=== PATIENT | female | born 1990 | race Two or more races ===

== ENCOUNTER → 2017-02-04 | Outpatient (REF) | payer OTHER | LOC: M LAB REF 14:00 | PROVIDERS: ATTEND Physician Assistant Medical | DX: R39.9 Unspecified symptoms and signs involving the genitourinary system (principal) ==

== ENCOUNTER → 2017-08-02 | Outpatient (CLI) | payer OTHER ==
[~2017-08-02] MED LIST: METHACHOLINE KIT (J7674) INH
== END ==
LOC: M CARPUL 12:42
DX: R06.9 Unspecified abnormalities of breathing (principal)

== ENCOUNTER → 2018-08-15 | Outpatient (REF) | payer OTHER ==
[2018-08-15 18:40] LABS: BASO # 0.1 10^3/uL (0.0-0.2); BASO % 0.4 % (0.0-1.0); EOS # 0.1 10^3/uL (0.0-0.50); EOS % 0.6 % (0.0-3.0); HEMATOCRIT 38.3 % (36.0-47.0); HEMOGLOBIN 12.7 g/dl (12.0-15.5); LYMPH # 3.3 10^3/uL (1.5-6.5); LYMPH % 24.4 % (24.0-44.0); MEAN CORPUSCULAR HEMOGLOBIN 29.7 pg (27.0-33.0); MEAN CORPUSCULAR HGB CONC 33.2 g/dl (32.0-36.5); MEAN CORPUSCULAR VOLUME 89.7 fl (80.0-96.0); MONO # 1.2 10^3/uL (0.0-0.8); MONO % 8.6 % (0.0-5.0); NEUTROPHILS % 65.5 % (36.0-66.0); PLATELET COUNT, AUTOMATED 248 10^3/uL (150-450); RED BLOOD COUNT 4.27 10^6/uL (4.00-5.40); WHITE BLOOD COUNT 13.7 10^3/uL (4.0-10.0)
[2018-08-15 21:18] LABS: CHLAMYDIA DNA AMPLIFICATION NEGATIVE (NEGATIVE); GC DNA AMPLIFICATION NEGATIVE (NEGATIVE)
[2018-08-17 10:58] LABS: HEPATITIS C VIRUS ABY INDEX 0.1 INDEX (<0.8); HIV 1&2 SCREEN CENTAUR NEGATIVE (NEGATIVE); RUBELLA IgG QUALITATIVE IMMUNE (IMMUNE)
== END ==
LOC: M LABSMT 16:55
PROVIDERS: ATTEND Obstetrics & Gynecology
DX: Z3A.08 8 weeks gestation of pregnancy (principal); Z34.81 Encounter for supervision of other normal pregnancy, first trimester

== ENCOUNTER 2018-08-27 13:16 | Emergency (ER) | payer OTHER, MEDICAID ==
[~2018-08-27] VITALS: Ht 165.1 cm; Wt 104.5 kg
[2018-08-27] MEDS ORDERED: PREN1TAB11 PO (13:25)
[2018-08-27] MEDS ORDERED: ONDANSETRON 4MG/2ML VIAL (J2405) IV ONE (13:45)
[2018-08-27 14:23] LABS: INFLUENZA A AMPLIFICATION NEGATIVE (NEGATIVE); INFLUENZA B AMPLIFICATION NEGATIVE (NEGATIVE)
[2018-08-27 14:24] LABS: BASO % 0.3 % (0.0-1.0); EOS # 0.1 10^3/uL (0.0-0.50); EOS % 0.5 % (0.0-3.0); HEMATOCRIT 37.8 % (36.0-47.0); HEMOGLOBIN 12.7 g/dl (12.0-15.5); LYMPH # 2.5 10^3/uL (1.5-6.5); LYMPH % 21.1 % (24.0-44.0); MEAN CORPUSCULAR HEMOGLOBIN 29.6 pg (27.0-33.0); MEAN CORPUSCULAR HGB CONC 33.6 g/dl (32.0-36.5); MEAN CORPUSCULAR VOLUME 88.1 fl (80.0-96.0); MONO # 1.1 10^3/uL (0.0-0.8); MONO % 9.1 % (0.0-5.0); NEUTROPHILS # 8.1 10^3/uL (1.8-7.7); NEUTROPHILS % 68.7 % (36.0-66.0); PLATELET COUNT, AUTOMATED 273 10^3/uL (150-450); RED BLOOD COUNT 4.29 10^6/uL (4.00-5.40); WHITE BLOOD COUNT 11.8 10^3/uL (4.0-10.0)
[2018-08-27 14:30] LABS: ALBUMIN 3.4 GM/DL (3.2-5.2); ALT/SGPT 31 U/L (12-78); BILIRUBIN,DIRECT 0.1 MG/DL (0.0-0.2); BILIRUBIN,TOTAL 0.2 MG/DL (0.2-1.0); BLOOD UREA NITROGEN 6 MG/DL (7-18); CARBON DIOXIDE LEVEL 23 MEQ/L (21-32); CHLORIDE LEVEL 105 MEQ/L (98-107); CREATININE FOR GFR 0.63 MG/DL (0.55-1.30); GLOMERULAR FILTRATION RATE > 60.0 (>60); GLUCOSE, FASTING 76 MG/DL (70-100); POTASSIUM SERUM 3.8 MEQ/L (3.5-5.1); SODIUM LEVEL 137 MEQ/L (136-145); TOTAL PROTEIN 6.9 GM/DL (6.4-8.2)
[2018-08-27] MEDS ORDERED: NS 1,000 ML IV ONE (15:00)
[2018-08-27] MEDS ORDERED: ONDA4TAB6 PO (15:30)
[2018-08-27 16:14] VITALS: BP 122/75
== END 2018-08-27 16:15 | disposition home or self-care (01) ==
LOC: M ED 13:16
DX: O99.89 Other specified diseases and conditions complicating pregnancy, childbirth and the puerperium (principal); R11.10 Vomiting, unspecified; R19.7 Diarrhea, unspecified; Z3A.13 13 weeks gestation of pregnancy; Z88.1 Allergy status to other antibiotic agents
CPT/HCPCS: 36415; 80048; 80076; 85025; 87086; 87502; 96374; 99284; J2405

== ENCOUNTER → 2018-08-31 | Outpatient (CLI) | payer OTHER, MEDICAID ==
[~2018-08-31] MED LIST changes: -METHACHOLINE KIT (J7674) INH; +ONDA4TAB6 PO; +PREN1TAB11 PO
== END ==
LOC: M SMT 14:08
PROVIDERS: ATTEND Advanced Practice Midwife
DX: Z31.438 Encounter for other genetic testing of female for procreative management (principal)

== ENCOUNTER → 2018-10-11 | Outpatient (CLI) | payer OTHER, MEDICAID ==
--- NOTE | 2018-10-12 05:15 | REP ---
Clinical: Anatomical evaluation. Comparison: None . Findings: Examination demonstrates a single live intrauterine in cephalic presentation. motion is identified by technologist. Placenta is noted anterior and grade grade zero without evidence for placenta previa or abruption. Amniotic fluid volume is normal. Cervix measures 4.2 cm in length and appears closed. No evidence for nuchal cord. Gestational age by LMP 19 weeks 1 day with JOHN 02/26/2019 . Gestational age by current measurements 19 weeks 5 days with JOHN 03/02/2019 . FHR equals 144 beats per minute. BPD 4.5 cm 19 weeks 4 days HC 17.0 cm 19 weeks 4 days AC 14.7 cm 20 weeks 0 days FL 3.3 cm 20 weeks 2 days HL 3.2 cm 20 weeks 6 days HC/AC ratio 1.15 Estimated weight 332 grams ( 61st percentile). Anatomical assessment demonstrates normal structures including cranium, choroid plexus, cavum, cerebellum/posterior fossa, lungs, stomach, cord insertion/three-vessel cord, kidneys/bladder, spine, and extremities. Limited evaluation of the facial features, heart/ventricular outflow tracts and diaphragm. Impression: 1. Single live intrauterine in cephalic presentation demonstrating appropriate interval growth. 2. Anatomical limitations as described above may warrant reevaluation and follow-up. Electronically Signed by Jethro Dacosta MD 10/12/2018 05:07 A
== END ==
LOC: M LRY 08:08
PROVIDERS: ATTEND Obstetrics & Gynecology
DX: Z34.82 Encounter for supervision of other normal pregnancy, second trimester (principal); Z3A.19 19 weeks gestation of pregnancy

== ENCOUNTER → 2018-11-07 | Outpatient (CLI) | payer OTHER, MEDICAID ==
--- NOTE | 2018-11-07 09:13 | REP ---
Clinical: Anatomical evaluation. Comparison: 10/11/2018 . Findings: Examination demonstrates a single live intrauterine in transverse (head to maternal right) presentation. motion is identified by technologist. Placenta is noted anterior and grade 0 without evidence for placenta previa or abruption. Amniotic fluid volume is normal. Cervix measures 6.0 cm in length and appears closed. Nuchal cord cannot be excluded. Gestational age by LMP 23 weeks 0 days with JOHN 03/06/2019 . Gestational age by current measurements 23 weeks 2 days with JOHN 03/04/2019 . FHR equals 145 beats per minute. Estimated weight 593 grams ( 58th percentile). Anatomical assessment demonstrates normal structures including cranium, choroid plexus, cavum, cerebellum/posterior fossa, facial features, lungs, four-chamber heart/ventricular outflow tracts, diaphragm, stomach, cord insertion/three-vessel cord, kidneys/bladder, spine, and extremities. Impression: 1. Single live intrauterine in transverse lie demonstrating appropriate interval growth. 2. Nuchal cord cannot be excluded. 3. Anatomical assessment is complete and normal. No gross abnormalities are identified. Electronically Signed by Jethro Dacosta MD 11/07/2018 09:05 A
== END ==
LOC: M RAD 07:28
PROVIDERS: ATTEND Advanced Practice Midwife
DX: Z34.82 Encounter for supervision of other normal pregnancy, second trimester (principal); Z3A.22 22 weeks gestation of pregnancy

== ENCOUNTER → 2018-12-20 | Outpatient (CLI) | payer OTHER, MEDICAID ==
[2018-12-20 09:56] LABS: HEMATOCRIT 37.7 % (36.0-47.0); HEMOGLOBIN 12.6 g/dl (12.0-15.5); MEAN CORPUSCULAR HGB CONC 33.4 g/dl (32.0-36.5); MEAN CORPUSCULAR VOLUME 92.6 fl (80.0-96.0); PLATELET COUNT, AUTOMATED 257 10^3/uL (150-450); RED BLOOD COUNT 4.07 10^6/uL (4.00-5.40); WHITE BLOOD COUNT 12.6 10^3/uL (4.0-10.0)
== END ==
LOC: M SMT 08:03
PROVIDERS: ATTEND Advanced Practice Midwife
DX: Z34.02 Encounter for supervision of normal first pregnancy, second trimester (principal); Z3A.00 Weeks of gestation of pregnancy not specified

== ENCOUNTER → 2018-12-26 | Outpatient (CLI) | payer OTHER, MEDICAID ==
--- NOTE | 2018-12-27 20:28 | SLEEPHOME ---
DATE OF PROCEDURE: 12/26/2018 ORDERED BY: SAVANAH Chow Diagnostic home sleep testing was performed due to concern for the obstructive sleep apnea syndrome in this patient with a history of excessive somnolence and nonrestorative sleep. For testing, a nocturnal T3 respiratory monitoring device was used. Continuous record was made of pulse, oxygen saturation, airflow, chest, abdominal strain and body position. 9 hours and 59 minutes of data were reviewed. There were 7 hours and 22 minutes marked as time in bed. During the interval marked time in bed there were 40 respiratory events identified of 10 seconds in duration or greater for a respiratory event index of 5.4. The events were primarily associated with the supine posture. The events were primarily obstructive. Baseline pulse rate was 97 beats per minute, pulse rate ranged 80-126. Baseline saturation 95%. Saturations fell as low as 84%. Testing was performed in both the supine and nonsupine positions. IMPRESSION Abnormal home sleep testing with repetitive respiratory events and oxygen desaturations to 84% with a respiratory event index of 5.4 is consistent with obstructive sleep apnea syndrome. RECOMMENDATIONS As the events were primarily associated with the supine posture, sleep position retraining for avoidance of the supine posture would be reasonable. Should symptoms persist, formal sleep evaluation should be considered.
== END ==
LOC: M SLEEP HO 11:22
PROVIDERS: ATTEND Nurse Practitioner Family
DX: R40.0 Somnolence (principal)

== ENCOUNTER → 2019-02-05 | Outpatient (REF) | payer OTHER, MEDICAID | LOC: M LAB REF 13:21 | PROVIDERS: ATTEND Obstetrics & Gynecology | DX: O09.813 Supervision of pregnancy resulting from assisted reproductive technology, third trimester (principal) ==

== ENCOUNTER → 2019-02-19 | Outpatient (CLI) | payer OTHER, MEDICAID ==
[~2019-02-19] MED LIST changes: +RANI1TAB38 PO; +TUMS750C5 PO
== END ==
LOC: M SMT 15:31
PROVIDERS: ATTEND Advanced Practice Midwife
DX: O09.813 Supervision of pregnancy resulting from assisted reproductive technology, third trimester (principal); Z3A.00 Weeks of gestation of pregnancy not specified

== ENCOUNTER → 2019-02-26 | Outpatient (CLI) | payer OTHER, MEDICAID ==
[2019-02-26 17:48] LABS: HEMATOCRIT 34.6 % (36.0-47.0); HEMOGLOBIN 11.7 g/dl (12.0-15.5); MEAN CORPUSCULAR HEMOGLOBIN 30.2 pg (27.0-33.0); MEAN CORPUSCULAR HGB CONC 33.8 g/dl (32.0-36.5); MEAN CORPUSCULAR VOLUME 89.4 fl (80.0-96.0); PLATELET COUNT, AUTOMATED 206 10^3/uL (150-450); RED BLOOD COUNT 3.87 10^6/uL (4.00-5.40); WHITE BLOOD COUNT 10.9 10^3/uL (4.0-10.0)
[2019-02-26 18:09] LABS: TOTAL PROTEIN,RANDOM URINE 21.4 MG/DL (0.0-12.0)
[2019-02-26 18:12] LABS: ALT/SGPT 16 U/L (12-78); BILIRUBIN,TOTAL 0.3 MG/DL (0.2-1.0); CREATININE FOR GFR 0.68 MG/DL (0.55-1.30); GLOMERULAR FILTRATION RATE > 60.0 (>60); LDH LACTATE DEHYDROGENASE 168 U/L (84-246); URIC ACID 5.8 MG/DL (2.6-6.0)
== END ==
LOC: M LAB 16:54
PROVIDERS: ATTEND Advanced Practice Midwife
DX: O16.3 Unspecified maternal hypertension, third trimester (principal); Z3A.00 Weeks of gestation of pregnancy not specified

== ENCOUNTER 2019-02-27 10:42 | Inpatient (IN) | payer OTHER, MEDICAID ==
[~2019-02-27] VITALS: Ht 165.1 cm; Wt 109.4 kg
[2019-02-27] VITALS (12 sets, daily range): BP systolic 108–139; BP diastolic 62–89
[~2019-02-27 10:42] MED LIST changes: -RANI1TAB38 PO; -TUMS750C5 PO
[2019-02-27] MEDS ORDERED: TUMS750C5 PO (11:06)
[2019-02-27] MEDS ORDERED: RANI1TAB38 PO (11:06)
[2019-02-27 11:56] LABS: HEMATOCRIT 34.2 % (36.0-47.0); HEMOGLOBIN 11.8 g/dl (12.0-15.5); MEAN CORPUSCULAR HEMOGLOBIN 31.1 pg (27.0-33.0); MEAN CORPUSCULAR HGB CONC 34.5 g/dl (32.0-36.5); MEAN CORPUSCULAR VOLUME 90.2 fl (80.0-96.0); PLATELET COUNT, AUTOMATED 198 10^3/uL (150-450); RED BLOOD COUNT 3.79 10^6/uL (4.00-5.40); WHITE BLOOD COUNT 10.9 10^3/uL (4.0-10.0)
[2019-02-27] MEDS: miSOPROStol 50 MCG 1/2 TAB (S0191) PO SCH ×3 (11:57→20:10)
[2019-02-27 12:16] LABS: ALT/SGPT 12 U/L (12-78); BILIRUBIN,TOTAL 0.2 MG/DL (0.2-1.0); CREATININE FOR GFR 0.74 MG/DL (0.55-1.30); GLOMERULAR FILTRATION RATE > 60.0 (>60); LDH LACTATE DEHYDROGENASE 201 U/L (84-246); URIC ACID 6.4 MG/DL (2.6-6.0)
--- NOTE | 2019-02-27 19:32 | HPE ---
DATE OF ADMISSION: 02/27/2018 HISTORY OF PRESENT ILLNESS: The patient is a 28-year-old female who is a 1, para 0 at 39 weeks gestation with an estimated due date (JOHN) of 03/06/2019. The patient had an in vitro fertilization (IVF) transfer date of 06/18/2018 due to stage IV endometriosis. The patient initiated care in her first trimester with [facility]. Her has been complicated by preeclampsia which she was diagnosed with today. She presents to labor and delivery for an induction of labor related to preeclampsia. She denies contractions, leaking of fluid, or vaginal bleeding. She reports active movement. The patient denies any preeclamptic signs or symptoms. She did report vomiting all night last night. She also reports and has been complaining for the last three days of having very low urine output especially given the amount of fluid the patient has been drinking. PAST MEDICAL HISTORY: The patient has a history of migraines, infertility, endometriosis stage IV with tubes that are blocked bilaterally. The patient has been diagnosed with obstructive sleep apnea during this . PAST SURGICAL HISTORY: She has had three laparoscopic surgeries. She had a tonsillectomy and her wisdom teeth removed. FAMILY HISTORY: Diabetes and high blood pressure. SOCIAL HISTORY: The patient is . She denies any history of alcohol abuse or use prior to or during or illicit drug use during or prior to . She is not a smoker. She has had no history of sexually transmitted diseases (STDs). LABORATORY DATA: Blood type is A+ with an antibody screen that is negative. Her hemoglobin and hematocrit was 12.7 and 38.3 in her first trimester with platelets of 248. She is immune to Rubella. VDRL is nonreactive. Urine culture has no growth. Hepatitis B surface antigen is negative. HIV is negative. Hepatitis C is nonreactive. Gonorrhea and Chlamydia are both negative. Her NIPT testing was low risk and showed a normal male. Her one-hour glucose tolerance test was 122 with hemoglobin and hematocrit of 12.6 and 37.8 with platelets of 257 at the time. Her GBS is negative. Her spot urine that was yesterday was about 0.4 with normal AST and ALT levels. VITAL SIGNS: Blood pressure 133/88, heart rate 105, respiratory rate is 18, temperature is 97.8. heart rate is 140, moderate variability, positive accelerations, no decelerations. Contractions are every 3-5 minutes. The patient reports she does not feel contractions. STERILE VAGINAL EXAMINATION (SVE): 1 cm dilated, 75% effaced, -2 station with scant bloody show. PHYSICAL EXAMINATION: GENERAL: Alert and oriented times three. RESPIRATORY: Regular rate. No use of accessory muscles. ABDOMEN: Gravid and nontender to touch. Cephalic presentation noted via Emiliano's and sterile vaginal examination (SVE). LOWER EXTREMITIES: +1 and +2 pitting edema in her feet, ankles, and legs. No clonus noted. ASSESSMENT: Intrauterine (IUP) at 39 weeks gestation, category 1 heart rate tracing, preeclampsia, negative group B Streptococcus (GBS). PLAN: Admit the patient to labor and delivery. Out of bed ad jena. Regular diet as for now and when she is switched over to IV pitocin it is to be clear liquids. Saline lock and laboratories per unit protocol. Cytotec is ordered by mouth every four hours as needed until cervical ripening has been achieved. Anesthesia consult per the patient's request. Dr. Ruano has been consulted and is aware of the patient being in labor and delivery along with the plan of care and agrees with plan of care. Anticipate cervical ripening. MTDD
[2019-02-28] VITALS (24 sets, daily range): BP systolic 116–153; BP diastolic 68–91
[2019-02-28] MEDS ORDERED: LR 1,000 ML IV SCH (00:01)
[2019-02-28] MEDS ORDERED: BUTORPHANOL 2 MG/ML INJ (J0595) IV ONE ×2 (00:15→04:15)
[2019-02-28] MEDS ORDERED: OXYTOCIN DRIP 30 UNITS in APPROPRIATE DILUENT 1 EA IV SCH ×2 (00:15→09:45)
[2019-02-28] MEDS ORDERED: PROMETHAZINE INJ 25 MG/ML VIAL (J2550) IV ONE ×2 (00:15→04:15)
[2019-02-28 06:28] LABS: HEMATOCRIT 39.7 % (36.0-47.0); HEMOGLOBIN 13.3 g/dl (12.0-15.5); MEAN CORPUSCULAR HEMOGLOBIN 30.8 pg (27.0-33.0); MEAN CORPUSCULAR HGB CONC 33.5 g/dl (32.0-36.5); MEAN CORPUSCULAR VOLUME 91.9 fl (80.0-96.0); PLATELET COUNT, AUTOMATED 209 10^3/uL (150-450); RED BLOOD COUNT 4.32 10^6/uL (4.00-5.40); WHITE BLOOD COUNT 17.2 10^3/uL (4.0-10.0)
[2019-02-28 06:51] LABS: ALT/SGPT 11 U/L (12-78); BILIRUBIN,TOTAL 0.2 MG/DL (0.2-1.0); CREATININE FOR GFR 0.72 MG/DL (0.55-1.30); GLOMERULAR FILTRATION RATE > 60.0 (>60); LDH LACTATE DEHYDROGENASE 173 U/L (84-246); URIC ACID 6.4 MG/DL (2.6-6.0)
--- NOTE | 2019-02-28 07:45 | IPNPDOC ---
Obstetrical Progress Note Date of Service Feb 28, 2019 Subjective Late entry from 02/28/19 at midnight. Santosh reports feeling her contractions. Objective Vital Signs Date Time Temp Pulse Resp B/P (MAP) Pulse Ox O2 Delivery O2 Flow Rate FiO2 02/28/19 05:47 91 136/80 (98) 02/28/19 05:16 98.3 02/28/19 04:20 18 Assessment Heart Rate (FHR): 150 Variability: Moderate Accelerations: Positive Decelerations: None Heart Rate Tracing: Category I Tocometer Contractions: Yes Frequency: regular Sterile Vaginal Examination Dilation: 1cm Effacement (%): other (75%) Station: -2 Cervical Consistency: Soft Cervical Position: Anterior Postion/Presentation: Cephalic presentation Assessment and Plan EGA at Admission: 39 Weeks & Days 39.1 Status: Reassuring Group B Streptococcus: Negative Anticipate: Vaginal Delivery Additional Comments Duckworth bulb placed with 50/40 cc of sterile water. Patient tolerated well. IV Pit ocin ordered and to be started. SIGRID NUNO CNM Feb 28, 2019 07:45
--- NOTE | 2019-02-28 09:25 | IPNPDOC ---
Text Note Date of Service The patient was seen on 02/28/19. NOTE S: feeling more contractions and some leakage of fluid. Bloody show on pillow. O: Gravid SVE: 10/100%/-1 station FHR: 140 bpm, moderate variability, accels no decels, Cat 1 tracing Sartell: Ctx q2-3 minutes A/P 28 yo induction of labor 2/2 pre-eclampsia s/p 3 cytotec, you (came out at 0400), now on pit at 8 has received 2 doses stadol/phenergan -making progress -anticipate VS,Fishbone, I+O VS, Fishbone, I+O Laboratory Tests 02/27/19 11:45 Red Blood Count 3.79 L, Mean Corpuscular Volume 90.2, Mean Corpuscular Hemogl obin 31.1, Mean Corpuscular Hemoglobin Concent 34.5, Red Cell Distribution Width 13.2, Aspartate Amino Transf (AST/SGOT) 14, Alanine Aminotransferase (ALT/SGPT) 12, Lactate Dehydrogenase 201, Total Bilirubin 0.2, Uric Acid 6.4 H 02/28/19 06:09 Red Blood Count 4.32, Mean Corpuscular Volume 91.9, Mean Corpuscular Hemoglobin 30.8, Mean Corpuscular Hemoglobin Concent 33.5, Red Cell Distribution Width 13.3, Aspartate Amino Transf (AST/SGOT) 13, Alanine Aminotransferase (ALT/SGPT) 11 L, Lactate Dehydrogenase 173, Total Bilirubin 0.2, Uric Acid 6.4 H Vital Signs Date Time Temp Pulse Resp B/P (MAP) Pulse Ox O2 Delivery O2 Flow Rate FiO2 02/28/19 05:47 91 136/80 (98) 02/28/19 05:16 98.3 02/28/19 04:20 18 I&O- Last 24 Hours up to 6 AM 02/28/19 06:00 Intake Total 1600 ml Balance 1600 ml GME ATTESTATION GME ATTESTATION My faculty preceptor for this patient encounter was physically present during the encounter and was fully available. All aspects of the patient interview, examination, medical decision making process, and medical care plan development were reviewed and approved by the faculty preceptor. The faculty preceptor is aware and concurs with the plan as stated in the body of this note and will attest to such by his/her cosignature. EDISON BOYD DO Feb 28, 2019 09:24
[2019-02-28] MEDS ORDERED: ONDANSETRON 4MG/2ML VIAL (J2405) IV PRN (09:30)
[2019-02-28] MEDS ORDERED: ACETAMINOPHEN 500 MG TAB PO PRN (09:30)
[2019-02-28] MEDS ORDERED: METHYLERGONOVINE MALEATE 0.2 MG TAB PO PRN (09:30)
[2019-02-28] MEDS ORDERED: DOCUSATE SODIUM 100 MG CAP PO PRN (09:30)
[2019-02-28] MEDS ORDERED: ACETAMINOPHEN TAB 650MG DOSE (2X325MG) PO PRN (09:30)
[2019-02-28] MEDS ORDERED: IBUPROFEN 800 MG TAB PO PRN (09:30)
[2019-02-28] MEDS ORDERED: DIBUCAINE 1% OINTMENT 30GM TOP PRN (09:30)
[2019-02-28] MEDS ORDERED: RHOGAM 300 MCG (1500 IU) INJ (J2790) IM SCH (09:30)
[2019-02-28] MEDS ORDERED: MEASLES,MUMPS,RUBELLA VACCINE INJ (MMR-II) (90707) SC SCH (09:30)
[2019-02-28] MEDS ORDERED: IBUPROFEN 600 MG TAB PO PRN (09:30)
[2019-02-28] MEDS ORDERED: MOM 30ML SUSPENSION UDC PO PRN (09:30)
[2019-02-28] MEDS ORDERED: LIDOCAINE 1% MDV 20ML VIAL INFIL ONE (09:30)
--- NOTE | 2019-02-28 09:47 | DN ---
DATE OF DELIVERY: 02/28/2019 PREDELIVERY DIAGNOSES: 39 weeks 1 day estimated gestational age, preeclampsia. POSTDELIVERY DIAGNOSIS: Delivered via spontaneous vaginal delivery. PROCEDURE: Spontaneous vaginal delivery, first degree vaginal laceration repair. PROVIDER: Gayle Wills DO, PGY-3 SUPERVISOR FILES: Boo Ruano DO ANESTHESIA: 10 mL of 1% lidocaine local anesthesia. ESTIMATED BLOOD LOSS: 300 mL. FINDINGS: Male infant, weighing 3734 grams or 8 pounds 2 ounces, scores of 8 and 9. DELIVERY SUMMARY: After a short second stage the patient spontaneously delivered a 3734 grams (or 8 pounds and 2 ounce) male under no anesthesia at 0853 hours. The delivered left occiput anterior and restituted left transverse. There was one nuchal times one tight which was reduced. The shoulders delivered with ease, followed by the corpus and terminal meconium. The infant cried spontaneously, was handed to the mother. scores were 8 and 9. The cord was doubly clamped and cut by the father of the baby. The placenta was delivered spontaneously at 0900 hours and appeared to be intact. The patient received IV Pitocin immediately after delivery of the placenta. The patient had a small first-degree right vaginal wall laceration which was repaired with #3-0 Vicryl. Sponge counts were correct. The patient parents have named their baby Hussein. I have read and agree with the above documentation. I was present during all aspects of the delivery and repair of the vaginal laceration. Elvi Ruano DO [facility]IAL HOSPITALCatalina
[2019-03-01 02:00] VITALS: BP 130/81
[2019-03-01 06:00] VITALS: BP 124/74
[2019-03-01 06:38] LABS: HEMATOCRIT 29.5 % (36.0-47.0); MEAN CORPUSCULAR HEMOGLOBIN 31.3 pg (27.0-33.0); MEAN CORPUSCULAR HGB CONC 33.9 g/dl (32.0-36.5); MEAN CORPUSCULAR VOLUME 92.2 fl (80.0-96.0); PLATELET COUNT, AUTOMATED 167 10^3/uL (150-450); WHITE BLOOD COUNT 16.2 10^3/uL (4.0-10.0)
[2019-03-01 06:55] LABS: ALT/SGPT 14 U/L (12-78); BILIRUBIN,TOTAL 0.2 MG/DL (0.2-1.0); CREATININE FOR GFR 0.63 MG/DL (0.55-1.30); GLOMERULAR FILTRATION RATE > 60.0 (>60); LDH LACTATE DEHYDROGENASE 193 U/L (84-246); URIC ACID 7.3 MG/DL (2.6-6.0)
--- NOTE | 2019-03-01 07:28 | IPNPDOC ---
Text Note Date of Service The patient was seen on 03/01/19. NOTE Day 1 s/p ; complicated by pre-eclampsia S: Was tachycardic overnight with some blurring of her vision, now resolved. Pain well controlled, lochia and bleeding decreasing, voiding spontaneously, ambulating without assistance, tolerating regular diet.Breast feeding with formula supplementation.No headaches. Leg swelling decreasing. O: vitals stable Heart: RRR, no murmurs/gallops/rubs Lungs: CTA BL Abd: Fundus at the umbilicus and firm, some edema in the pannus Ext: mild bilateral leg swelling, nontender, Ambrosio's negative bilaterally A/P: 28 yo G1 now P1. day 1 s/p . Was tachycardic overnight with blurred vision, no resolved. Currently hemodynamically stable, afebrile, good pain control. Recovering well. -Routine care and advancement -repeat Pre-E panel -Anticipate discharge tomorrow VS,Consuelo, I+O VS, Consuelo, I+O Laboratory Tests 03/01/19 06:15 Red Blood Count 3.20 L, Mean Corpuscular Volume 92.2, Mean Corpuscular Hemoglobin 31.3, Mean Corpuscular Hemoglobin Concent 33.9, Red Cell Distribution Width 13.7, Aspartate Amino Transf (AST/SGOT) 22, Alanine Aminotransferase (ALT/SGPT) 14, Lactate Dehydrogenase 193, Total Bilirubin 0.2, Uric Acid 7.3 H Vital Signs Date Time Temp Pulse Resp B/P (MAP) Pulse Ox O2 Delivery O2 Flow Rate FiO2 03/01/19 06:00 97.8 98 18 124/74 (91) 02/28/19 18:02 96 I&O- Last 24 Hours up to 6 AM 03/01/19 06:00 Intake Total 500 ml Output Total 900 ml Balance -400 ml GME ATTESTATION GME ATTESTATION My faculty preceptor for this patient encounter was physically present during the encounter and was fully available. All aspects of the patient interview, examination, medical decision making process, and medical care plan development were reviewed and approved by the faculty preceptor. The faculty preceptor is aware and concurs with the plan as stated in the body of this note and will attest to such by his/her cosignature. EDISON BOYD DO Mar 01, 2019 07:28
[2019-03-01] MEDS: PRENATAL VITAMINS CHEWABLE TABLET PO SCH (07:35)
[2019-03-01 10:00] VITALS: BP 113/66
[2019-03-01 14:04] VITALS: BP 130/67
[2019-03-01 18:00] VITALS: BP 130/71
[2019-03-01 22:00] VITALS: BP 138/92
[2019-03-02 02:00] VITALS: BP 142/74
[2019-03-02 06:00] VITALS: BP 131/70
[2019-03-02] MEDS: PRENATAL VITAMINS CHEWABLE TABLET PO SCH (08:48)
[2019-03-02 10:00] VITALS: BP 126/74
== END 2019-03-02 10:55 | disposition home or self-care (01) | DRG 806 ==
LOC: M LDI 10:42 → M OBS 02-28 11:29
PROVIDERS: ADMIT Advanced Practice Midwife; ATTEND Advanced Practice Midwife
PROC: 3E0P7GC Introduction of Other Therapeutic Substance into Female Reproductive, Via Natural or Artificial Opening (ICD-10-PCS; 2019-02-27)
PROC: 10E0XZZ Delivery of Products of Conception, External Approach (ICD-10-PCS; principal; 2019-02-28)
PROC: 0HQ9XZZ Repair Perineum Skin, External Approach (ICD-10-PCS; 2019-02-28)
DX: O14.94 Unspecified pre-eclampsia, complicating childbirth (principal); Z37.0 Single live birth; O99.354 Diseases of the nervous system complicating childbirth; Z3A.39 39 weeks gestation of pregnancy; O69.1XX0 Labor and delivery complicated by cord around neck, with compression, not applicable or unspecified; O70.0 First degree perineal laceration during delivery; G47.33 Obstructive sleep apnea (adult) (pediatric)

== ENCOUNTER 2019-03-15 20:05 | Emergency (ER) | payer OTHER, MEDICAID ==
[~2019-03-15] VITALS: Ht 165.1 cm; Wt 95.5 kg
[~2019-03-15 20:05] MED LIST changes: +RANI1TAB38 PO; +TUMS750C5 PO
[2019-03-15] MEDS: MORPHINE 4 MG/ML 1ML VIAL/SYRINGE (J2270) IV PRN ×2 (21:23→23:57)
[2019-03-15 21:40] LABS: BASO # 0.1 10^3/uL (0.0-0.2); BASO % 0.5 % (0.0-1.0); EOS # 0.1 10^3/uL (0.0-0.5); EOS % 0.8 % (0.0-3.0); HEMATOCRIT 36.3 % (36.0-47.0); HEMOGLOBIN 12.2 g/dl (12.0-15.5); LYMPH # 1.8 10^3/uL (1.5-5.0); LYMPH % 13.7 % (24.0-44.0); MEAN CORPUSCULAR HEMOGLOBIN 30.7 pg (27.0-33.0); MEAN CORPUSCULAR HGB CONC 33.6 g/dl (32.0-36.5); MEAN CORPUSCULAR VOLUME 91.4 fl (80.0-96.0); MONO # 0.9 10^3/uL (0.0-0.8); MONO % 6.4 % (0.0-5.0); NEUTROPHILS # 10.4 10^3/uL (1.5-8.5); NEUTROPHILS % 78.2 % (36.0-66.0); PLATELET COUNT, AUTOMATED 316 10^3/uL (150-450); RED BLOOD COUNT 3.97 10^6/uL (4.00-5.40); WHITE BLOOD COUNT 13.3 10^3/uL (4.0-10.0)
[2019-03-15 21:55] LABS: ALBUMIN 3.3 GM/DL (3.2-5.2); ALT/SGPT 28 U/L (12-78); AMYLASE 34 U/L (25-115); BILIRUBIN,DIRECT 0.2 MG/DL (0.0-0.2); BILIRUBIN,TOTAL 0.3 MG/DL (0.2-1.0); CK-MB VALUE MASS 1.5 NG/ML (<3.6); CPK CREATINE PHOSPHOKINASE 116 U/L (26-192); INR 0.93; LIPASE 108 U/L (73-393); MB/CK RELATIVE INDEX 1.29 (< OR =4); PROTHROMBIN TIME 12.2 SECONDS (11.8-14.0); TOTAL PROTEIN 6.3 GM/DL (6.4-8.2); TROPONIN I < 0.02 NG/ML (< 0.10)
[2019-03-15 21:56] LABS: PARTIAL THROMBOPLASTIN TIME 30.5 SECONDS (25.0-38.4)
--- NOTE | 2019-03-15 23:48 | REPVR ---
EXAM: US Abdomen Limited, Right Upper Quadrant EXAM DATE/TIME: 03/15/2019 10:20 PM CLINICAL HISTORY: 28 years old, female; Abdominal pain; Epigastric pain TECHNIQUE: Imaging protocol: Real-time ultrasound of the abdomen with image documentation. Examination was focused on the right upper quadrant. COMPARISON: CT ABD PELVIS W/O CONTRAST 06/16/2014 4:16:[address] ABD PELVIS WITH CONTRAST 03/05/2014 8:55:55 PM (The reports from these studies were not available for review at the time of this interpretation.) FINDINGS: Liver: The echogenicity of the liver is within normal limits. No liver lesion is identified from the images obtained. The contour of the liver is smooth. The liver measures 18.6 cm in craniocaudal dimension at the level of the right midclavicular line. Gallbladder: There are multiple calculi in the gallbladder. No gallbladder wall thickening, pericholecystic fluid, or sonographic Avery's sign is noted. Common bile duct: The common bile duct is normal in caliber and measures 5.8 mm in diameter at the level of the jose g hepatis. Pancreas: The visualized portion of the pancreas is unremarkable. The tail of the pancreas was obscured by gas in the stomach and bowel. Right kidney: The right kidney is normal in appearance and measures 11.1 cm in length. There is no renal cortical thinning. The renal cortical echogenicity is within normal limits. No renal lesion is seen. There is no hydronephrosis. No obvious stones are seen in the renal collecting system. Intraperitoneal space: No free fluid is seen from the images obtained. IMPRESSION: Cholelithiasis without sonographic evidence for cholecystitis. Electronically signed by: Juan Lebron On 03/15/2019 23:47:21 PM
[2019-03-16] MEDS ORDERED: ONDA4TAB6 PO (00:18)
[2019-03-16] MEDS ORDERED: PERC5TAB12 PO (00:18)
[2019-03-16 00:45] VITALS: BP 113/79
[2019-03-16] MEDS ORDERED: OXYCODONE/APAP 5MG/325MG(BULK FOR ED) 1 TABLET PO ONE (00:45)
[2019-03-16] MEDS ORDERED: ONDANSETRON 4 MG ORAL DISINTEGRATING TAB (Q0162 PER 1MG) PO ONE (00:45)
== END 2019-03-16 00:55 | disposition home or self-care (01) ==
LOC: M ED 20:05
DX: K80.70 Calculus of gallbladder and bile duct without cholecystitis without obstruction (principal); R11.0 Nausea; F41.9 Anxiety disorder, unspecified; Z85.3 Personal history of malignant neoplasm of breast; Z88.0 Allergy status to penicillin
CPT/HCPCS: 76705; 80047; 80076; 82150; 82550; 82553; 83690; 84484; 85025; 85610; 85730; 93041; 96374; 96376; 99285; J2270; Q0162

== ENCOUNTER 2019-03-19 17:13 | Day surgery (SDC) | payer OTHER, MEDICAID ==
[~2019-03-19] VITALS: Ht 165.1 cm; Wt 92.1 kg
[~2019-03-19 17:13] MED LIST changes: +PERC5TAB12 PO
[2019-03-19] MEDS ORDERED: ONDANSETRON 4MG/2ML VIAL (J2405) IV PRN (17:15)
[2019-03-19] MEDS ORDERED: KETOROLAC 30 MG/ML VIAL (J1885) IV PRN (17:15)
[2019-03-19] MEDS ORDERED: PERC5TAB12 PO (17:46)
[2019-03-19 17:50] LABS: BASO # 0.1 10^3/uL (0.0-0.2); BASO % 0.7 % (0.0-1.0); EOS # 0.1 10^3/uL (0.0-0.5); EOS % 1.3 % (0.0-3.0); HEMOGLOBIN 13.6 g/dl (12.0-15.5); LYMPH % 18.4 % (24.0-44.0); MEAN CORPUSCULAR HEMOGLOBIN 30.6 pg (27.0-33.0); MEAN CORPUSCULAR HGB CONC 33.2 g/dl (32.0-36.5); MEAN CORPUSCULAR VOLUME 92.3 fl (80.0-96.0); MONO # 0.8 10^3/uL (0.0-0.8); MONO % 7.3 % (0.0-5.0); NEUTROPHILS # 7.6 10^3/uL (1.5-8.5); NEUTROPHILS % 71.9 % (36.0-66.0); PLATELET COUNT, AUTOMATED 362 10^3/uL (150-450); RED BLOOD COUNT 4.44 10^6/uL (4.00-5.40); WHITE BLOOD COUNT 10.6 10^3/uL (4.0-10.0)
[2019-03-19 18:19] LABS: ALBUMIN 3.8 GM/DL (3.2-5.2); ALT/SGPT 293 U/L (12-78); AMYLASE 29 U/L (25-115); BILIRUBIN,TOTAL 1.4 MG/DL (0.2-1.0); BLOOD UREA NITROGEN 11 MG/DL (7-18); CALCIUM LEVEL 9.7 MG/DL (8.5-10.1); CARBON DIOXIDE LEVEL 26 MEQ/L (21-32); CHLORIDE LEVEL 105 MEQ/L (98-107); CREATININE FOR GFR 0.99 MG/DL (0.55-1.30); GLOMERULAR FILTRATION RATE > 60.0 (>60); GLUCOSE, FASTING 86 MG/DL (70-100); LIPASE 80 U/L (73-393); POTASSIUM SERUM 4.8 MEQ/L (3.5-5.1); SODIUM LEVEL 140 MEQ/L (136-145); TOTAL PROTEIN 7.1 GM/DL (6.4-8.2)
[2019-03-19] MEDS: LR 1,000 ML IV SCH (18:26)
[2019-03-19] MEDS: CIPROFLOXACIN 400 MG in IV 1 EA IV SCH (18:48)
[2019-03-19] MEDS: metroNIDAZOLE 500 MG in IV 1 EA IV SCH (20:57)
[2019-03-19 22:00] VITALS: BP 122/74
--- NOTE | 2019-03-20 02:20 | HPEPDOC ---
General Surgery H&P Date of Admission Mar 19, 2019 Attending Physician: PABLO SALEEM MD History and Physical CHIEF COMPLAINT: ABDOMINAL PAIN HISTORY OF PRESENT ILLNESS: Patient is a healthy 28 year old female, 2 weeks who presents in my clinic with complaints of persistent epigastric pain radiating to her right upper abdomen since last Monday. She reports at least episodes of similar epigastric discomfort after she gave . The first one lasted about 3 hours then went away by itselft. The second episode did not resolve and she had to call an ambulance to bring her to the emergency room last Monday evening. She was evaluated to have gallstones. At that time she did not have any leukocytosi s, changes in her liver function test no evidence of inflammation on ultrasound except for presence of gallstones. She was presumptively colic and was discharged home. On discharge she reports to me that she continues to have epigastric discomfort and nausea. She is only able to tolerate soup broth this even that makes her nauseated and hasn't worked since her pain. She has no baseline persistent pain with worsening with oral intake. She denies any associated fevers or chills. This is affecting her so much that she is not able to even carry her baby due to the discomfort. She was seen in my clinic this afternoon and subsequently admitted to the hospital. ALLERGIES: Please see below. HOME MEDICATIONS: Please see below. PAST MEDICAL HISTORY: 1. Endometriosis. 2. Migraine headaches 3. Recent with preeclampsia. 4. Anxiety PAST SURGICAL HISTORY: 1. Diagnostic laparoscopy. PERSONAL/SOCIAL HISTORY: Denies smoking, alcohol use, or recreational drug use. REVIEW OF SYSTEMS: GENERAL: Patient does report his recent , breast-feeding. Has lost some of her intrapartum weight gain, edema. HEENT: Denies blurred vision and double vision. Denies ear symptoms. Denies hoarseness. NECK: Denies any neck pain. CARDIOVASCULAR: Denies chest pain and palpitations. MUSCULOSKELETAL: Denies arthralgias, back pain and thrombophlebitis. SKIN: Denies rash. NEUROLOGIC: Reports history of migraine headaches no episodes recently. PSYCHIATRIC: Reports anxiety. ENDOCRINE: Denies thyroid disease. HEMATOLOGY/ONCOLOGY: Denies any bleeding or clotting disorder. HEART: Denies any chest pains, palpitations, paroxysmal dyspnea, orthopnea. PULMONARY: Denies chronic cough, dyspnea and wheezing. GASTROINTESTINAL: Denies rectal bleeding, family history of colon cancer, constipation, diarrhea, dysphagia, heartburn and jaundice. GENITOURINARY: Recent , reports preeclampsia, bilateral lower leg edema, water retention during . ENDOCRINE: Denies polydipsia, polyphagia, polyuria, heat or cold intolerance. INFECTIOUS: Denies any recent upper respiratory tract infection, UTI, need for use of antibiotics. NUTRITION: Reports poor appetite due to the ongoing discomfort. PHYSICAL EXAMINATION: VITAL SIGNS: Please see below. GENERAL APPEARANCE: Patient visibly uncomfortable sitting up in a chair in the clinic. Awake, alert, oriented. HEENT: Normocephalic, atraumatic. [place] palpebral conjunctivae. Anicteric sclerae. Lips moist. CHEST: No chest wall abnormalities. Normal respiratory motion/effort. NECK: Supple. No thyromegaly. No lymphadenopathies. LUNGS: Lung sounds are clear to auscultation bilaterally. No wheezing appreciated. HEART: No chest wall abnormalities. Heart rate and rhythm are regular with no murmurs. ABDOMEN: Loose abdominal wall secondary to recent otherwise nondistended. She is mainly tender over the epigastric area with mild guarding that is tender over the right upper quadrant area daily for Avery sign nontender in the lower abdomen. SKIN: Warm, moist. EXTREMITIES: Extremities have no deformities. No edema identified. NEUROLOGICAL: Awake, alert, oriented. ANCILLARIES: . LABORATORY DATA: Please see below. MICROBIOLOGY: Please see below. IMAGING: Ultrasound right upper quadrant (03/15/2019) Cholelithiasis without sonographic evidence for cholecystitis. IMPRESSION AND PLAN: Cholelithiasis patient will be now with acute cholecystitis with ongoing symptoms for 5 days now Recent Abnormal LFTs Admitted the patient to my office with continued pain and discomfort since last Monday. She has acute cholecystitis and we are planning to perform laparoscopic cholecystectomy. On admission a repeated her labs was prominence of the result is some mild abnormalities. LFTs including increase in AST, ALT, total bilirubin with primary direct fraction suspicious for choledocholithiasis. I originally i ntended to bring her to the operating room for laparoscopic cholecystectomy tomorrow but given this findings I had sent her for an MRCP. I reviewed the images and I think I could see a small, bile duct distal stone. I am awaiting the official read of the MRCP. If she does have choledocholithiasis she will need an ERCP prior to the cholecystectomy. Vital Signs Vital Signs Date Time Temp Pulse Resp B/P (MAP) Pulse Ox O2 Delivery O2 Flow Rate FiO2 03/19/19 22:00 97.0 78 18 122/74 (90) 95 I&Os I&O- Last 24 Hours up to 6 AM 03/20/19 06:00 Intake Total 425 ml Balance 425 ml Laboratory Data Labs 24H Laboratory Tests 2 03/19/19 17:33: Immature Granulocyte % (Auto) 0.4, White Blood Count 10.6H, Red Blood Count 4.44, Hemoglobin 13.6, Hematocrit 41.0, Mean Corpuscular Volume 92.3, Mean Corpuscular Hemoglobin 30.6, Mean Corpuscular Hemoglobin Concent 33.2, Red Cell Distribution Width 12.8, Platelet Count 362, Neutrophils (%) (Auto) 71.9H, Lymphocytes (%) (Auto) 18.4L, Monocytes (%) (Auto) 7.3H, Eosinophils (%) (Auto) 1.3, Basophils (%) (Auto) 0.7, Neutrophils # (Auto) 7.6, Lymphocytes # (Auto) 2.0, Monocytes # (Auto) 0.8, Eosinophils # (Auto) 0.1, Basophils # (Auto) 0.1, Nucleated Red Blood Cells % (auto) 0.0, Anion Gap 9, Glomerular Filtration Rate > 60.0, Blood Urea Nitrogen 11, Creatinine 0.99, Sodium Level 140, Potassium Level 4.8, Chloride Level 105, Carbon Dioxide Level 26, Calcium Level 9.7, Aspartate Amino Transf (AST/SGOT) 240H, Alanine Aminotransferase (ALT/SGPT) 293H, Alkaline Phosphatase 707H, Total Bilirubin 1.4H, Direct Bilirubin 1.0H, Total Protein 7.1, Albumin 3.8, Albumin/Globulin Ratio 1.15, Amylase Level 29, Lipase 80 CBC/BMP Laboratory Tests 03/19/19 17:33 Red Blood Count 4.44, Mean Corpuscular Volume 92.3, Mean Corpuscular Hemoglobin 30.6, Mean Corpuscular Hemoglobin Concent 33.2, Red Cell Distribution Width 12.8, Neutrophils (%) (Auto) 71.9 H, Lymphocytes (%) (Auto) 18.4 L, Monocytes (%) (Auto) 7.3 H, Eosinophils (%) (Auto) 1.3, Basophils (%) (Auto) 0.7, Neutrophils # (Auto) 7.6, Lymphocytes # (Auto) 2.0, Monocytes # (Auto) 0.8, Eosinophils # (Auto) 0.1, Basophils # (Auto) 0.1, Calcium Level 9.7, Aspartate Amino Transf (AST/SGOT) 240 H, Alanine Aminotransferase (ALT/SGPT) 293 H, Alkaline Phosphatase 707 H, Total Bilirubin 1.4 H, Direct Bilirubin 1.0 H, Total Protein 7.1, Albumin 3.8 Home Medications Scheduled PRN Oxycodone HCl/Acetaminophen (Percocet 5-325 mg Tablet) 1 Each Tablet, 1 TAB PO Q4H PRN for PAIN, (Reported) Allergies Coded Allergies: amoxicillin (Verified Allergy, Intermediate, HIVES, NAUSEA, 02/27/19) A-FIB/CHADSVASC A-FIB History Current/History of A-Fib/PAF?: No Current PO Anticoag Therapy: No PABLO SALEEM MD Mar 20, 2019 02:20
[2019-03-20] MEDS: LR 1,000 ML IV SCH ×3 (04:20→16:40)
[2019-03-20] MEDS: metroNIDAZOLE 500 MG in IV 1 EA IV SCH ×3 (04:20→20:00)
[2019-03-20 06:00] VITALS: BP 120/73
[2019-03-20] MEDS: CIPROFLOXACIN 400 MG in IV 1 EA IV SCH ×2 (06:09→18:01)
[2019-03-20 06:45] LABS: BASO # 0.1 10^3/uL (0.0-0.2); EOS # 0.3 10^3/uL (0.0-0.5); EOS % 3.8 % (0.0-3.0); HEMOGLOBIN 12.6 g/dl (12.0-15.5); LYMPH % 29.1 % (24.0-44.0); MEAN CORPUSCULAR HEMOGLOBIN 30.7 pg (27.0-33.0); MEAN CORPUSCULAR HGB CONC 33.2 g/dl (32.0-36.5); MEAN CORPUSCULAR VOLUME 92.5 fl (80.0-96.0); MONO # 0.6 10^3/uL (0.0-0.8); MONO % 8.8 % (0.0-5.0); NEUTROPHILS # 3.9 10^3/uL (1.5-8.5); PLATELET COUNT, AUTOMATED 334 10^3/uL (150-450); RED BLOOD COUNT 4.11 10^6/uL (4.00-5.40); WHITE BLOOD COUNT 6.8 10^3/uL (4.0-10.0)
[2019-03-20 07:14] LABS: ALBUMIN 3.2 GM/DL (3.2-5.2); ALT/SGPT 214 U/L (12-78); BILIRUBIN,TOTAL 0.6 MG/DL (0.2-1.0); BLOOD UREA NITROGEN 9 MG/DL (7-18); CALCIUM LEVEL 8.9 MG/DL (8.5-10.1); CARBON DIOXIDE LEVEL 26 MEQ/L (21-32); CHLORIDE LEVEL 105 MEQ/L (98-107); CREATININE FOR GFR 0.99 MG/DL (0.55-1.30); GLOMERULAR FILTRATION RATE > 60.0 (>60); GLUCOSE, FASTING 88 MG/DL (70-100); POTASSIUM SERUM 3.8 MEQ/L (3.5-5.1); SODIUM LEVEL 139 MEQ/L (136-145); TOTAL PROTEIN 6.5 GM/DL (6.4-8.2)
[2019-03-20] MEDS: MORPHINE 4 MG/ML 1ML VIAL/SYRINGE (J2270) IV PRN ×3 (07:32→23:17)
[2019-03-20] MEDS: PANTOPRAZOLE 40MG INJ (PROTONIX) (C9113) IV SCH (08:25)
[2019-03-20] MEDS: ENOXAPARIN 40 MG/0.4 ML SYRINGE (J1650) SC SCH (09:00)
[2019-03-20 13:59] VITALS: BP 115/71
[2019-03-20] MEDS ORDERED: LIDOCAINE 1% SDV INJ 30 ML VIAL As Ordered ONE (18:58)
[2019-03-20] MEDS ORDERED: BUPIVACAINE HCL 0.25% 30 ML VIAL As Ordered ONE (18:58)
[2019-03-20] MEDS ORDERED: CONRAY-60 60% 50ML VIAL (Q9961) As Ordered ONE ×2 (18:58→20:42)
[2019-03-20] MEDS ORDERED: SCOPOLAMINE 1MG TRANSDERMAL PATCH As Ordered ONE (19:07)
[2019-03-20] MEDS ORDERED: propofoL 200 MG/20 ML VIAL As Ordered ONE (19:50)
[2019-03-20] MEDS ORDERED: LIDOCAINE 2% INJ 100 MG/5 ML SDV (FOR ANES.) As Ordered ONE (19:50)
[2019-03-20] MEDS ORDERED: ROCURONIUM BROMIDE 50 MG/5 ML VIAL As Ordered ONE ×2 (19:50→19:52)
[2019-03-20] MEDS ORDERED: MIDAZOLAM INJ 2 MG/2 ML VIAL (J2250) As Ordered ONE (19:50)
[2019-03-20] MEDS ORDERED: METOCLOPRAMIDE INJ 10MG/2ML VIAL (J2765) As Ordered ONE (19:50)
[2019-03-20] MEDS ORDERED: dexameTHASONE 4 MG/ML 1ML VIAL (J1100) As Ordered ONE (19:50)
[2019-03-20] MEDS ORDERED: fentaNYL 250 MCG/5 ML INJECTION (J3010) As Ordered ONE (19:50)
[2019-03-20] MEDS ORDERED: KETOROLAC 60 MG/2 ML VIAL (J1885) As Ordered ONE (19:51)
[2019-03-20] MEDS ORDERED: SUGAMMADEX SODIUM 500 MG/5 ML VIAL (BRIDION) As Ordered ONE (19:51)
[2019-03-20] MEDS ORDERED: ACETAMINOPHEN 1000MG 100ML IV BTL (OFIRMEV) (J0131 PER 10MG) As Ordered ONE (19:53)
[2019-03-20] MEDS ORDERED: GLUCAGON FOR INJ 1 MG VIAL (J1610) As Ordered ONE (20:41)
[2019-03-20] MEDS ORDERED: fentaNYL 100 MCG/2 ML INJECTION (J3010) As Ordered ONE ×2 (20:48→21:48)
[2019-03-20] MEDS ORDERED: PERCOCET 5MG/325MG TAB PO PRN (21:45)
[2019-03-20] MEDS ORDERED: METOCLOPRAMIDE INJ 10MG/2ML VIAL (J2765) IV PRN (21:45)
[2019-03-20] MEDS ORDERED: LR 1,000 ML IV SCH (21:45)
[2019-03-20] MEDS ORDERED: ONDANSETRON 4MG/2ML VIAL (J2405) IV PRN (21:45)
[2019-03-20] MEDS ORDERED: PERCOCET 5MG/325MG TAB As Ordered ONE (21:48)
[2019-03-20] MEDS: fentaNYL 100 MCG/2 ML INJECTION (J3010) IV PRN ×4 (21:50→22:08)
[2019-03-20 22:30] VITALS: BP 125/82
[2019-03-20 22:45] VITALS: BP 126/82
[2019-03-20 23:00] VITALS: BP 127/82
[2019-03-20 23:30] VITALS: BP 116/80
[2019-03-21] VITALS: BP 117/75
[2019-03-21 01:00] VITALS: BP 118/74
[2019-03-21] MEDS: LR 1,000 ML IV SCH (01:02)
[2019-03-21 02:00] VITALS: BP 116/71
[2019-03-21 03:00] VITALS: BP 113/68
[2019-03-21 04:00] VITALS: BP 111/64
[2019-03-21] MEDS: metroNIDAZOLE 500 MG in IV 1 EA IV SCH (05:12)
[2019-03-21 06:00] VITALS: BP 119/69
[2019-03-21] MEDS: CIPROFLOXACIN 400 MG in IV 1 EA IV SCH (06:21)
[2019-03-21 07:00] LABS: BASO % 0.2 % (0.0-1.0); HEMOGLOBIN 11.9 g/dl (12.0-15.5); LYMPH # 1.3 10^3/uL (1.5-5.0); LYMPH % 10.2 % (24.0-44.0); MEAN CORPUSCULAR HEMOGLOBIN 30.7 pg (27.0-33.0); MEAN CORPUSCULAR HGB CONC 33.1 g/dl (32.0-36.5); MEAN CORPUSCULAR VOLUME 92.8 fl (80.0-96.0); MONO # 0.6 10^3/uL (0.0-0.8); MONO % 4.6 % (0.0-5.0); NEUTROPHILS # 10.9 10^3/uL (1.5-8.5); NEUTROPHILS % 84.6 % (36.0-66.0); PLATELET COUNT, AUTOMATED 327 10^3/uL (150-450); RED BLOOD COUNT 3.88 10^6/uL (4.00-5.40); WHITE BLOOD COUNT 12.9 10^3/uL (4.0-10.0)
[2019-03-21 07:21] LABS: ALT/SGPT 175 U/L (12-78); BILIRUBIN,TOTAL 0.5 MG/DL (0.2-1.0); BLOOD UREA NITROGEN 9 MG/DL (7-18); CALCIUM LEVEL 8.8 MG/DL (8.5-10.1); CARBON DIOXIDE LEVEL 25 MEQ/L (21-32); CHLORIDE LEVEL 106 MEQ/L (98-107); CREATININE FOR GFR 0.93 MG/DL (0.55-1.30); GLOMERULAR FILTRATION RATE > 60.0 (>60); GLUCOSE, FASTING 116 MG/DL (70-100); POTASSIUM SERUM 4.2 MEQ/L (3.5-5.1); SODIUM LEVEL 140 MEQ/L (136-145); TOTAL PROTEIN 6.2 GM/DL (6.4-8.2)
[2019-03-21] MEDS: PANTOPRAZOLE 40MG INJ (PROTONIX) (C9113) IV SCH (09:15)
[2019-03-21] MEDS: ENOXAPARIN 40 MG/0.4 ML SYRINGE (J1650) SC SCH (09:15)
--- NOTE | 2019-03-21 09:23 | REP ---
INTRAOPERATIVE CHOLANGIOGRAM: Multiple images are obtained during intraoperative cholangiogram. Contrast fills intrahepatic bile ducts which are slightly prominent in size. Common hepatic and common bile duct are mildly dilated. No filling defect or stricture is seen. There is a small amount of contrast seen in the duodenum. I do not see evidence for choledocholithiasis. Fluoroscopy time is 135 seconds. Electronically Signed by Delmer Ortiz MD 03/21/2019 05:33 P
[2019-03-21] MEDS: MORPHINE 4 MG/ML 1ML VIAL/SYRINGE (J2270) IV PRN (10:22)
--- NOTE | 2019-03-21 15:04 | REPVR ---
EXAM: MR Abdomen Without Contrast EXAM DATE/TIME: 03/19/2019 6:29 PM CLINICAL HISTORY: 28 years old, female; Abnormal findings; Abnormal lab test; Elevated liver enzymes; Additional info: Elevated lfts, known gallstones, R/O cbd stone TECHNIQUE: Imaging protocol: MRCP of the abdomen without contrast. 3D rendering: MIP reconstructed images were created and reviewed. COMPARISON: GALLBLADDER US 03/15/2019 10:23 PM FINDINGS: Liver: No mass. Gallbladder and bile ducts: Several small 2-3 mm filling defects in the common bile duct consistent with choledocholithiasis. Common bile duct measures 6.3 mm. Short segment stricture in the right common bile duct at the bifurcation. There are multiple tiny gallstones present. No evidence of cholecystitis demonstrated. Pancreas: Unremarkable. No ductal dilation. Spleen: Unremarkable. No splenomegaly. Adrenals: Unremarkable. No mass. Kidneys and ureters: Unremarkable. No solid mass. No hydronephrosis. Stomach and bowel: Unremarkable. Intraperitoneal space: No fluid collection. Arteries: No abdominal aortic aneurysm. Bones/joints: Unremarkable. Soft tissues: Unremarkable. IMPRESSION: 1. Several small 2-3 mm filling defects in the common bile duct consistent with choledocholithiasis. Common bile duct measures 6.3 mm. Short segment stricture in the right common bile duct at the bifurcation. 2. There are multiple tiny gallstones present. No evidence of cholecystitis demonstrated. Electronically signed by: Patrice Sierra On 03/19/2019 21:31:21 PM
--- NOTE | 2019-03-26 16:26 | ROOPDOC ---
[facility] Report Of Operation Report of Operation DATE OF PROCEDURE: 03/26/19 PREPROCEDURE DIAGNOSES: Acute cholecystitis, possible choledocholithiasis with acutely elevated liver function test. POSTPROCEDURE DIAGNOSES: Acute cholecystitis, cholelithiasis, nonobstructing choledocholithiasis. PROCEDURE: Robotic-assisted laparoscopic cholecystectomy with use of ICG to identify extrahepatic bile ducts, intraoperative cholangiogram. SURGEON: Arash Chao MD NUCLEAR POWERPLANT MECHANIC: ANESTHESIA: Gen. anesthesia. ESTIMATED BLOOD LOSS: Approximately 20 mL. COMPLICATIONS: none. REMARKS: Patient is a 28-year-old female who is a recent seen in the emergency room Jerry evening with acute onset of abdominal pain that persisted and continued and worsened through the weekend and was admitted to the hospital under my service and is now 4 cholecystectomy. PROCEDURE NOTE: Distended gallbladder, mild gallbladder wall edema consistent with acute cholecystitis. Multiple small stones noted in the gallbladder including the top of the cystic duct which was milked back into the gallbladder. ICG and firefly was used to help identify the course of the cystic duct. Intraoperative cholangiogram was performed. The cholangiogram shows mildly promi nent common bile duct, common hepatic duct. I think he could see a small nonobstructing free-floating tiny stone at the mid common bile duct area (vs air bubble). There is only a trickle of contrast going into the duodenum despite me giving the patient 1 mg of glucagon. There is no evidence for common bile duct obstruction from a CBD stone.. DESCRIPTION OF PROCEDURE: Patient was started on ciprofloxacin and metronidazole for suspicion for acute cholecystitis since admission last night. She was given a dose of ICG 5 mg IV with 10 mL NS flush 45 minutes prior to the procedure. She was brought to the operating room, laid supine on the table, compression boots placed for DVT prophylaxis. General endotracheal anesthesia started. Her abdomen then prepped and draped in usual sterile fashion. We paused for a surgical timeout using both pre-incision safety checklist to verify correct patient, procedure site and additional clinical information prior to beginning the procedure. Entry to the abdomen done through a small incision at the left upper quadrant area. A Veress needle is inserted on a controlled fashion. CO2 insufflation started to pressure 15 mmHg. Using the same incision a 8 mm optical trocar was then placed under direct vision of laparoscope. The insertion site was inspected for injury and none was found. Patient was then positioned on a reverse trendelenburg position with her right side tilted up to further expose the gallbladder and gallbladder fossa and retract the bowels away from the area. I then placed 3 working ports under direct vision just to the left of the umbilicus and in a straight line at the right midclavicular area and right anterior axillary line in an oblique direction to triangulate the gallbladder and line up the instrument ports. The da Suzanne Xi robotic tower was then maneuvered in place, the trochars were docked onto the robotic arms, the camera and instruments and up for the procedure. Operative findings: Her liver is noted to be smooth in contour no nodularities or lesions found. She has a moderately distended, slightly tense gallbladder. This was partially decompressed with an aspirating needle. She is multiple stones in both free- floating and stuck at the neck and proximal cystic duct which was milked back into the gallbladder. There is evidence for some mild gallbladder wall edema consistent with acute cholecystitis. The gallbladder was partially decompressed with an aspirating needle connected to a 60 mL syringe. Clear appearing bile was aspirated The fundus of the gallbladder was grasped and the gallbladder was elevated superiorly exposing the neck of the gallbladder. The peritoneum overlying the area was opened up and dissected free both anteriorly and posteriorly to help with retraction of the gallbladder. The hepatocystic triangle was approached and dissected using a forced bipolar instrument and robotic hook cautery. The cystic duct was identified coming off from the neck gallbladder this was circumferentially dissected. The cystic artery was identified in its usual position medially behind a small lymph node of Calot. This was similarly circumferentially dissected off surrounding adipose tissue. We continued posterior dissection proximally at the neck of the gallbladder until a critical view of safety was achieved whereby only the previously identified duct and artery coursing through the neck the gallbladder. The lower body and neck of the gallbladder was coming off the liver plate early that the gallbladder itself seems to be just adhered at the liver plate starting at the lower body of the gallbladder. I switched views with firefly to determine and visualized the course of the cystic duct, likewise the common bile duct. Photodocumentation was done of the critical view of safety. At this point, a Hemoclip was placed at the top of the gallbladder cystic duct junction. A partial cystotomy was created. There is a small cystic duct stone that came out through the cystotomy. A cholangiogram catheter was inserted through the cystotomy directed towards common bile duct. The balloon was inflated. A trial of saline flushing was performed with no leakage. The robot instruments were removed, the arms undocked and the robot pulled out of the surgical field temporarily. A C-arm was positioned in place and a video fluoroscopy was performed with injection of 30% Conray for cholangiogram. Cholangiogram shows mildly dilated colon bile duct, common hepatic duct tapering to normal right and left hepatic ducts. There is a faint suggestion of his tiny filling defect this free-floating in the common bile duct. The distal common bile duct tapers normally but I could not see full flow of the contrast to the duodenum. I had anesthesia give the patient 1 mg of local gone. After waiting for a couple minutes to cholangiogram was again performed now with a small trickle of contrast into the duodenum. No evidence of distal common bile duct obstruction was found. The cholangiogram was then terminated at this point. The robot tower was again positioned in place, the patient repositioned. The arms docked to the trochars and instruments placed back. I scrubbed back out and again went to the surgeon's console. Under direct visualization the cholangiogram catheter was deflated and removed. We proceeded with the cholecystectomy. At this point the cystic artery was clipped 2 times and divided. After again checking her anatomy and verifying that the previously identified cystic duct with firefly view, this was also clipped 2 times and divided (2 hemoclips downstream and one Hemoclip upstream). The rest of the gallbladder was then dissected free of the gallbladder bed using Bovie cautery. There was no bleeding at the liver bed with midway through dissection the relatively thin-walled gallbladder at the fundus had small amount of bile leaking out. The gallbladder was detached from the liver plate and placed into an Endobag. I scrubbed back in. The gallbladder was extracted from the umbilical port site with slight blunt enlargement of the trocar site using Irene forceps. After re-insufflation I inspected the clips and noted this to be in place. No bleeding noted at the liver bed. The abdomen was irrigated and the small amount of bile that leaked suctioned off. The abdomen was deflated all ports were removed. The umbilical fascial defect repaired with 0 Vicryl in a mattress fashion. Rest of the skin incisions closed with 4-0 Monocryl in subcuticular fashion. Dermabond was used to cover the port site incisions Patient was awakened, extubated and brought to recovery room stable. ARASH CHAO MD Mar 26, 2019 16:26
== END 2019-03-21 11:00 | disposition home or self-care (01) ==
LOC: M SDC 17:13 → M MS5PR 17:18 → M SDC 03-21 11:00
PROVIDERS: ATTEND Surgery
DX: K80.10 Calculus of gallbladder with chronic cholecystitis without obstruction (principal); G47.30 Sleep apnea, unspecified; Z88.0 Allergy status to penicillin
CPT/HCPCS: 36415; 47563; 74181; 74300; 80053; 82150; 82248; 83690; 85025; 88304; 96372; 96374; 96375; 96376; C9113; J0131; J0744; J1100; J1610; J1650; J1885; J2250; J2270; J2405; J2765; J3010; Q9961

== ENCOUNTER → 2019-04-03 | Outpatient (CLI) | payer OTHER, MEDICAID ==
[2019-04-03 20:18] LABS: ALBUMIN 3.5 GM/DL (3.2-5.2); ALT/SGPT 18 U/L (12-78); BILIRUBIN,DIRECT < 0.1 MG/DL (0.0-0.2); BILIRUBIN,TOTAL 0.2 MG/DL (0.2-1.0); TOTAL PROTEIN 6.8 GM/DL (6.4-8.2)
== END ==
LOC: M LRY 15:08
PROVIDERS: ATTEND Surgery
DX: K80.80 Other cholelithiasis without obstruction (principal)

== ENCOUNTER → 2019-04-19 | Outpatient (CLI) | payer OTHER, MEDICAID ==
[2019-04-19 18:37] LABS: ALBUMIN 3.8 GM/DL (3.2-5.2); ALT/SGPT 18 U/L (12-78); BILIRUBIN,TOTAL 0.2 MG/DL (0.2-1.0); BLOOD UREA NITROGEN 15 MG/DL (7-18); CALCIUM LEVEL 9.4 MG/DL (8.5-10.1); CARBON DIOXIDE LEVEL 28 MEQ/L (21-32); CHLORIDE LEVEL 105 MEQ/L (98-107); CREATININE FOR GFR 0.99 MG/DL (0.55-1.30); GLOMERULAR FILTRATION RATE > 60.0 (>60); GLUCOSE, FASTING 83 MG/DL (70-100); POTASSIUM SERUM 4.2 MEQ/L (3.5-5.1); SODIUM LEVEL 139 MEQ/L (136-145); TOTAL PROTEIN 7.8 GM/DL (6.4-8.2)
== END ==
LOC: M SMT 13:31
PROVIDERS: ATTEND Nurse Practitioner
DX: K80.62 Calculus of gallbladder and bile duct with acute cholecystitis without obstruction (principal)

== ENCOUNTER → 2019-07-19 | Outpatient (REF) | payer OTHER | LOC: M LAB LCGH 09:12 | PROVIDERS: ATTEND Surgery | DX: L91.8 Other hypertrophic disorders of the skin (principal) ==

== ENCOUNTER → 2019-08-30 | Outpatient (CLI) | payer OTHER ==
--- NOTE | 2019-08-30 08:24 | REP ---
Pelvic ultrasound, endovaginal imaging for follicle analysis: Right ovary: The right ovary measures 1.9 x 1.0 x 1.7 cm and is normal size. There are no follicles that are greater than 10 mm. There are eight follicles in the 1.9 - 6.80 mm size range. Left ovary: The left ovary measures 3.0 x 2.1 x 2.2 cm and is normal size. There is a single follicle greater than 10 mm measuring 13.3 x 3.6 mm. Additionally, there are nine follicles measuring 2.3 - 5.6 mm. Uterus: The uterus is anteverted and upper normal size measuring 10.3 x 4.9 x 5.5 cm. The endometrial stripe is not thickened measuring 6.6 mm. Electronically Signed by Delmer Zhou MD 08/30/2019 08:16 A
== END ==
LOC: M RAD 07:16
PROVIDERS: ATTEND Obstetrics & Gynecology
DX: N97.8 Female infertility of other origin (principal)

== ENCOUNTER → 2019-09-06 | Outpatient (CLI) | payer OTHER ==
--- NOTE | 2019-09-06 08:15 | REP ---
Transvaginal pelvic sonography: History: Follicle ultrasound, infertility. Findings: Transvaginal scanning demonstrates uterine dimensions of 9.9 x 4.9 x 6.6 cm per endometrial stripe is 1.1 cm thick. There is a small quantity of endocervical fluid noted. No focal uterine mass is seen. No free fluid is seen in the cul-de-sac. Overall dimensions of the right ovary are 1.5 x 1.3 x 1.3 cm. There are no follicles in the right ovary measuring greater than a centimeter. There are five follicles in the right ovary ranging in size from 0.2-0.5 cm. The overall dimensions of the left ovary are 2.9 x 2.0 x 2.3 cm. There is one follicle greater than a centimeter in the left ovary measures 18 1.1 x 0.6 cm plaque. The left ovary contains six follicles ranging in size from 0.2-0.5 cm. Impression: Ovarian follicle study as above. Electronically Signed by Alex Mehta MD 09/06/2019 08:05 A
== END ==
LOC: M RAD 06:56
PROVIDERS: ATTEND Obstetrics & Gynecology
DX: N97.8 Female infertility of other origin (principal)

== ENCOUNTER → 2019-09-17 | Outpatient (REF) | payer OTHER | LOC: M LAB REF 12:20 | PROVIDERS: ATTEND Physician Assistant Medical | DX: J02.9 Acute pharyngitis, unspecified (principal) ==

== ENCOUNTER → 2019-09-23 | Outpatient (CLI) | payer OTHER | LOC: M LRY 08:59 | PROVIDERS: ATTEND Obstetrics & Gynecology | DX: Z32.00 Encounter for pregnancy test, result unknown (principal) ==

== ENCOUNTER → 2019-12-20 | Outpatient (CLI) | payer MEDICAID, OTHER ==
[~2019-12-20] MED LIST changes: +BENA25CA4 PO; +PRENTAB29; +REGL10TA6 PO
== END ==
LOC: M WUC 09:31
PROVIDERS: ATTEND Obstetrics & Gynecology
DX: N97.8 Female infertility of other origin (principal)

== ENCOUNTER → 2020-01-06 | Outpatient (CLI) | payer MEDICAID, OTHER ==
[~2020-01-06] MED LIST changes: -BENA25CA4 PO; -PRENTAB29; -REGL10TA6 PO
== END ==
LOC: M WUC 10:02
PROVIDERS: ATTEND Obstetrics & Gynecology
DX: Z32.00 Encounter for pregnancy test, result unknown (principal)

== ENCOUNTER → 2020-01-08 | Outpatient (CLI) | payer MEDICAID, OTHER ==
[~2020-01-08] MED LIST changes: +BENA25CA4 PO; +PRENTAB29; +REGL10TA6 PO
[2020-01-08 11:46] LABS: PROGESTERONE 12.1 NG/ML
== END ==
LOC: M WUC 09:56
PROVIDERS: ATTEND Obstetrics & Gynecology
DX: O09.00 Supervision of pregnancy with history of infertility, unspecified trimester (principal); Z3A.00 Weeks of gestation of pregnancy not specified

== ENCOUNTER → 2020-02-17 | Outpatient (REF) | payer MEDICAID, OTHER ==
[2020-03-20 15:18] LABS: CHLAMYDIA DNA AMPLIFICATION NEGATIVE (NEGATIVE); GC DNA AMPLIFICATION NEGATIVE (NEGATIVE)
[2020-04-03 14:40] LABS: BASO % 0.3 % (0.0-1.0); EOS # 0.1 10^3/uL (0.0-0.5); EOS % 0.7 % (0.0-3.0); HEMATOCRIT 44.4 % (36.0-47.0); HEMOGLOBIN 14.5 g/dl (12.0-15.5); LYMPH # 3.4 10^3/uL (1.5-5.0); LYMPH % 28.1 % (24.0-44.0); MEAN CORPUSCULAR HGB CONC 32.7 g/dl (32.0-36.5); MEAN CORPUSCULAR VOLUME 91.7 fl (80.0-96.0); MONO # 0.8 10^3/uL (0.0-0.8); MONO % 6.4 % (0.0-5.0); NEUTROPHILS # 7.7 10^3/uL (1.5-8.5); PLATELET COUNT, AUTOMATED 290 10^3/uL (150-450); RED BLOOD COUNT 4.84 10^6/uL (4.00-5.40); WHITE BLOOD COUNT 12.1 10^3/uL (4.0-10.0)
[2020-04-13 22:21] LABS: TOTAL PROTEIN,RANDOM URINE 17.1 MG/DL (0.0-12.0)
[2020-04-13 23:52] LABS: HEPATITIS C VIRUS ABY INDEX 0.2 INDEX (<0.8); HIV 1&2 SCREEN CENTAUR NEGATIVE (NEGATIVE)
== END ==
LOC: M SFHCPLAZ 11:08
PROVIDERS: ATTEND Advanced Practice Midwife
DX: O09.811 Supervision of pregnancy resulting from assisted reproductive technology, first trimester (principal); Z3A.00 Weeks of gestation of pregnancy not specified

== ENCOUNTER 2020-03-12 12:10 | Emergency (ER) | payer MEDICAID, OTHER ==
[~2020-03-12] VITALS: Ht 165.1 cm; Wt 98.8 kg
[~2020-03-12 12:10] MED LIST changes: -BENA25CA4 PO; -PRENTAB29; -REGL10TA6 PO
[2020-03-12] MEDS ORDERED: PRENTAB29 (12:17)
[2020-03-12] MEDS ORDERED: diphenhydrAMINE 50MG/ML VIAL (J1200) IV STA (14:04)
[2020-03-12] MEDS ORDERED: NS 1,000 ML IV ONE (14:15)
[2020-03-12] MEDS ORDERED: METOCLOPRAMIDE INJ 10MG/2ML VIAL (J2765 PER 1) IV ONE (14:15)
[2020-03-12] MEDS ORDERED: ACETAMINOPHEN 500 MG TAB PO ONE (14:15)
[2020-03-12 15:50] LABS: BASO # 0.1 10^3/uL (0.0-0.2); BASO % 0.3 % (0.0-1.0); EOS % 0.2 % (0.0-3.0); HEMATOCRIT 44.2 % (36.0-47.0); HEMOGLOBIN 14.8 g/dl (12.0-15.5); LYMPH # 2.8 10^3/uL (1.5-5.0); LYMPH % 18.3 % (24.0-44.0); MEAN CORPUSCULAR HEMOGLOBIN 30.6 pg (27.0-33.0); MEAN CORPUSCULAR HGB CONC 33.5 g/dl (32.0-36.5); MEAN CORPUSCULAR VOLUME 91.3 fl (80.0-96.0); MONO # 0.8 10^3/uL (0.0-0.8); MONO % 5.4 % (0.0-5.0); NEUTROPHILS # 11.6 10^3/uL (1.5-8.5); NEUTROPHILS % 75.5 % (36.0-66.0); PLATELET COUNT, AUTOMATED 272 10^3/uL (150-450); RED BLOOD COUNT 4.84 10^6/uL (4.00-5.40); WHITE BLOOD COUNT 15.3 10^3/uL (4.0-10.0)
[2020-03-12 18:15] LABS: ALBUMIN 3.1 GM/DL (3.2-5.2); ALT/SGPT 15 U/L (12-78); BILIRUBIN,DIRECT < 0.1 MG/DL (0.0-0.2); BILIRUBIN,TOTAL 0.2 MG/DL (0.2-1.0); BLOOD UREA NITROGEN 8 MG/DL (7-18); CALCIUM LEVEL 8.8 MG/DL (8.5-10.1); CARBON DIOXIDE LEVEL 23 MEQ/L (21-32); CHLORIDE LEVEL 108 MEQ/L (98-107); CREATININE FOR GFR 0.69 MG/DL (0.55-1.30); GLOMERULAR FILTRATION RATE > 60.0 (>60); GLUCOSE, FASTING 74 MG/DL (70-100); POTASSIUM SERUM 3.9 MEQ/L (3.5-5.1); SODIUM LEVEL 139 MEQ/L (136-145); TOTAL PROTEIN 6.7 GM/DL (6.4-8.2)
[2020-03-12] MEDS ORDERED: REGL10TA6 PO (18:35)
[2020-03-12] MEDS ORDERED: BENA25CA4 PO (18:35)
[2020-03-12 18:47] VITALS: BP 129/85
== END 2020-03-12 18:53 | disposition home or self-care (01) ==
LOC: M ED 12:10
DX: O99.352 Diseases of the nervous system complicating pregnancy, second trimester (principal); G43.909 Migraine, unspecified, not intractable, without status migrainosus; O99.512 Diseases of the respiratory system complicating pregnancy, second trimester; J34.89 Other specified disorders of nose and nasal sinuses; Z3A.14 14 weeks gestation of pregnancy; Z88.0 Allergy status to penicillin
CPT/HCPCS: 36415; 80048; 80076; 85025; 96361; 96374; 96375; 99284; J1200; J2765

== ENCOUNTER → 2020-03-19 | Outpatient (REF) | payer OTHER ==
[~2020-03-19] MED LIST changes: +BENA25CA4 PO; +PRENTAB29; +REGL10TA6 PO
== END ==
LOC: M SFHCWAGY 12:54
PROVIDERS: ATTEND Advanced Practice Midwife
DX: Z34.82 Encounter for supervision of other normal pregnancy, second trimester (principal); Z3A.00 Weeks of gestation of pregnancy not specified

== ENCOUNTER 2020-04-04 18:58 | Emergency (ER) | payer MEDICAID, OTHER ==
[~2020-04-04] VITALS: Ht 165.1 cm; Wt 100.2 kg
[2020-04-04] MEDS ORDERED: ACETAMINOPHEN TAB 650MG DOSE (2X325MG) PO ONE (19:30)
[2020-04-04] MEDS ORDERED: ONDANSETRON 4 MG ORAL DISINTEGRATING TAB PO ONE (19:30)
[2020-04-04 19:48] LABS: APPEARANCE, URINE CLEAR (CLEAR); BACTERIA, URINE AUTO 1+ (NEGATIVE); BILIRUBIN, URINE AUTO NEGATIVE (NEGATIVE); BLOOD, URINE BLOOD NEGATIVE (NEGATIVE); COLOR, URINE STRAW (YELLOW); GLUCOSE, URINE (UA) AUTO NEGATIVE (NEGATIVE); KETONE, URINE AUTO NEGATIVE (NEGATIVE); LEUKOCYTE ESTERASE, URINE AUTO NEGATIVE (NEGATIVE); NITRITE, URINE AUTO NEGATIVE (NEGATIVE); PROTEIN, URINE AUTO NEGATIVE (NEGATIVE); RBC, URINE AUTO 2 /HPF (0-3); SPECIFIC GRAVITY URINE AUTO 1.011 (1.002-1.035); SQUAMOUS EPITHELIAL CELL UR AU 5 /HPF (0-6); UROBILINOGEN, URINE AUTO 0.2 mg/dL (0.0-2.0); WBC, URINE AUTO 2 /HPF (0-3)
[2020-04-04 21:10] VITALS: BP 124/72
== END 2020-04-04 21:12 | disposition home or self-care (01) ==
LOC: M ED 18:58
DX: O99.352 Diseases of the nervous system complicating pregnancy, second trimester (principal); R51.9 Headache, unspecified; Z3A.17 17 weeks gestation of pregnancy; Z88.0 Allergy status to penicillin
CPT/HCPCS: 81001; 99283; Q0162

== ENCOUNTER → 2020-05-11 | Outpatient (CLI) | payer OTHER ==
--- NOTE | 2020-05-11 10:28 | REP ---
INDICATION: F/U ANATOMY. COMPARISON: 04/13/2020. TECHNIQUE: 5.1 cm 21 weeks 2 days transabdominal ultrasound imaging FINDINGS: LMP = 22 weeks 2 days, JOHN(LMP) = 09/12/2020 Expected GA/1st sono = 22 weeks 2 days, JOHN (expected) = 09/12/2020 Today's sono findings = 22 weeks 4 days, JOHN (today's sono) = 09/10/2020 Number: 1 Position: Breech Heart Rate: 143 BPM Placental Position: Anterior, grade 1 Placenta Previa: No low Lying: No abruption: No Amniotic Fluid Volume: Visually normal CLAU: CLAU: Normal Range: cm Cervix Length 3.9 cm, and MEASUREMENTS: BPD: 5.1 cm 21 weeks 2 days HC: 19.7 cm 21 weeks 6 days AC: 18.3 cm 23 weeks 1 day FL: 4.1 cm 23 weeks 1 day Estimated Weight: 547 grams 75th percentile Limited anatomic screening was performed. Profile view of the face and right ventricular outflow tract were seen. However the four-chamber view and left ventricular outflow tract are still suboptimally visualized due to breech position. All other anatomy structures had previously been evaluated. IMPRESSION: 1. Single intrauterine gestation in breech position with an anterior grade 1 placenta without previa or abruption. Heart rate 143 and regular. Amniotic fluid volume visually normal. Cervix 3.9 cm long and closed 2. Average ultrasound age by today's study 22 weeks 4 days, by initial ultrasound and LMP 22 weeks 2 days with EDC 09/12/2020. The estimated weight is 75th percentile. This is normal interval growth. 3. The facial profile view in the right ventricular outflow tract were seen. Four-chamber view and left ventricular flow tract still not optimally visualized due to breech position. Further attempt to visualize may be made later in the 2nd trimester. <Electronically signed by Khai Joseph > 05/11/20 [id number]
== END ==
LOC: M WHC 09:09
PROVIDERS: ATTEND Advanced Practice Midwife
DX: Z36.89 Encounter for other specified antenatal screening (principal); Z3A.22 22 weeks gestation of pregnancy

== ENCOUNTER → 2020-05-25 | Outpatient (CLI) | payer OTHER ==
[2020-05-25 17:50] LABS: BASO # 0.1 10^3/uL (0.0-0.2); BASO % 0.3 % (0.0-1.0); EOS # 0.1 10^3/uL (0.0-0.5); EOS % 0.5 % (0.0-3.0); HEMATOCRIT 41.1 % (36.0-47.0); HEMOGLOBIN 13.2 g/dl (12.0-15.5); LYMPH # 3.3 10^3/uL (1.5-5.0); LYMPH % 19.7 % (24.0-44.0); MEAN CORPUSCULAR HEMOGLOBIN 29.7 pg (27.0-33.0); MEAN CORPUSCULAR HGB CONC 32.1 g/dl (32.0-36.5); MEAN CORPUSCULAR VOLUME 92.6 fl (80.0-96.0); MONO # 1.1 10^3/uL (0.0-0.8); MONO % 6.3 % (0.0-5.0); NEUTROPHILS # 12.2 10^3/uL (1.5-8.5); NEUTROPHILS % 72.3 % (36.0-66.0); PLATELET COUNT, AUTOMATED 250 10^3/uL (150-450); RED BLOOD COUNT 4.44 10^6/uL (4.00-5.40); WHITE BLOOD COUNT 16.9 10^3/uL (4.0-10.0)
[2020-05-25 18:31] LABS: ALT/SGPT 12 U/L (12-78); BILIRUBIN,TOTAL 0.2 MG/DL (0.2-1.0); BLOOD UREA NITROGEN 8 MG/DL (7-18); CALCIUM LEVEL 9.4 MG/DL (8.5-10.1); CARBON DIOXIDE LEVEL 25 MEQ/L (21-32); CHLORIDE LEVEL 105 MEQ/L (98-107); CREATININE FOR GFR 0.63 MG/DL (0.55-1.30); GLOMERULAR FILTRATION RATE > 60.0 (>60); GLUCOSE, FASTING 81 MG/DL (70-100); POTASSIUM SERUM 4.2 MEQ/L (3.5-5.1); RHEUMATOID FACTOR QUANT < 10.0 IU/ML (<15.0); SODIUM LEVEL 137 MEQ/L (136-145); TOTAL 25(OH) VITAMIN D 26.9 NG/ML (30.0-100.0); TOTAL PROTEIN 6.6 GM/DL (6.4-8.2)
[2020-05-25 18:38] LABS: ERYTHROCYTE SEDIMENTATION RATE 41 mm/hr (0-20)
[2020-05-27 14:13] LABS: ANTINUCLEAR ANTIBODIES DIRECT Negative (Negative)
== END ==
LOC: M PLALAB 14:26
PROVIDERS: ATTEND Psychiatry & Neurology Neurology
DX: R51.9 Headache, unspecified (principal)

== ENCOUNTER → 2020-06-01 | Outpatient (CLI) | payer OTHER ==
--- NOTE | 2020-06-01 21:18 | REP ---
INDICATION: F/U ANATOMY - HEART AND LVOT COMPARISON: 05/11/2020 TECHNIQUE: Transabdominal obstetrical ultrasound with color Doppler evaluation. FINDINGS: Examination demonstrates a single live intrauterine in cephalic presentation. motion is identified by technologist. Placenta is noted anterior and grade 1 without evidence for placenta previa or abruption. Amniotic fluid volume is normal. Cervix measures 3.5 cm in length and appears closed.. Gestational age by LMP twenty-five weeks 2 days with JOHN 09/12/2020. Gestational age by current measurements 25 weeks 3 days with JOHN 09/11/2020. FHR equals 138 beats per minute. Estimated weight 775 grams (33rdpercentile). Anatomical assessment demonstrates normal structures including cranium, facial profile, four-chamber heart/ventricular outflow tracts, diaphragm, stomach, kidneys/bladder and 3 vessel cord. IMPRESSION: Single live intrauterine in cephalic presentation demonstrating appropriate interval growth. In conjunction with prior examination anatomical assessment is complete and normal. <Electronically signed by Jethro Dacosta > 06/01/20 [id number]
== END ==
LOC: M WHC 14:01
PROVIDERS: ATTEND Advanced Practice Midwife
DX: O26.892 Other specified pregnancy related conditions, second trimester (principal); Z3A.25 25 weeks gestation of pregnancy

== ENCOUNTER → 2020-06-11 | Outpatient (REF) | payer OTHER ==
[2020-06-11 13:41] LABS: HEMATOCRIT 39.2 % (36.0-47.0); HEMOGLOBIN 12.9 g/dl (12.0-15.5); MEAN CORPUSCULAR HGB CONC 32.9 g/dl (32.0-36.5); MEAN CORPUSCULAR VOLUME 94.2 fl (80.0-96.0); PLATELET COUNT, AUTOMATED 258 10^3/uL (150-450); RED BLOOD COUNT 4.16 10^6/uL (4.00-5.40); WHITE BLOOD COUNT 12.8 10^3/uL (4.0-10.0)
== END ==
LOC: M PLALAB 09:49
PROVIDERS: ATTEND Advanced Practice Midwife
DX: O26.892 Other specified pregnancy related conditions, second trimester (principal); Z3A.00 Weeks of gestation of pregnancy not specified

== ENCOUNTER → 2020-08-14 | Outpatient (REF) | payer OTHER | LOC: M SFHCWAGY 13:37 | PROVIDERS: ATTEND Advanced Practice Midwife | DX: O09.813 Supervision of pregnancy resulting from assisted reproductive technology, third trimester (principal) ==

== ENCOUNTER → 2020-08-19 | Outpatient (CLI) | payer OTHER ==
--- NOTE | 2020-08-20 05:02 | REP ---
INDICATION: GROWTH/CLAU COMPARISON: 06/01/2020 TECHNIQUE: Transabdominal obstetrical ultrasound with color Doppler evaluation. FINDINGS: Examination demonstrates a single live intrauterine in cephalic presentation. motion is identified by technologist. Placenta is noted anterior and grade 2 without evidence for placenta previa or abruption. Amniotic fluid volume is normal. Cervix appears closed. Gestational age by LMP 36 weeks 4 days with JOHN 09/12/2020. Gestational age by current measurements 35 weeks 1 day with JOHN 09/22/2020. FHR equals 146 beats per minute. BPD: 8.2 cm at 33 weeks 0 days HC: 31.6 cm at 35 weeks 4 days AC: 32.8 cm at 36 weeks 5 days FL: 7.1 cm at 36 weeks 1 day HL: 6.0 cm at 34 weeks 5 days HC/AC: 0.96 Estimated weight 2828 grams (38thpercentile). CLAU: 15.6 cm IMPRESSION: Single live intrauterine in cephalic presentation demonstrating appropriate estimated weight/growth. <Electronically signed by Jethro Dacosta > 08/20/20 [id number]
== END ==
LOC: M WHC 12:46
PROVIDERS: ATTEND Advanced Practice Midwife
DX: O09.813 Supervision of pregnancy resulting from assisted reproductive technology, third trimester (principal); Z3A.36 36 weeks gestation of pregnancy

== ENCOUNTER 2020-08-29 09:02 | Inpatient (IN) | payer OTHER ==
[2020-08-29] VITALS (17 sets, daily range): BP systolic 98–139; BP diastolic 58–87
[~2020-08-29] VITALS: Ht 165.1 cm; Wt 101.6 kg
[~2020-08-29 09:02] MED LIST changes: -PRENTAB29; +PRENTAB29 PO
--- OUTSIDE RECORDS SUMMARY | 2020-08-29 09:07 | CCD ---
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 Name Role Phone Lorenza Osullivan Unavailable PROBLEMS Type Condition ICD9-CM Code MYO86-IA Code Onset Dates Condition S tatus SNOMED Code Notes Problem Supervision of other normal Z34.80 Ac tive 591165399 Problem Perioral dermatitis L71.0 Active [id number] ALLERGIES Allergen (clinical drug ingredient) Drug/Non Drug Allergy do cumented on EMR Reaction Allergy Type Onset Date Status amoxicillin Amoxicillin([facility] Code:[address]-85) Hives Drug Aller gy Active ENCOUNTERS from 1989 to 2020-07-14 Encounter Location Date Provider Diagnosis [facility] Dermatology [id number] [place] [address] 0 Jul, Lorenza Osullivan Perioral dermatitis L71.0 IMMUNIZATIONS Vaccine Route Administration Date Status Influenza (6mo & up) Fluzone Unknown Apr 03, 2017 Oth ers SOCIAL HISTORY Tobacco Use: Social History Observation Description Date Details (start date - stop date) Never Smoker Sex Assigned At : Social History Observation Description Sex Assigned At Unknown Domestic Violence: Question Answer Notes Status: No history of abuse Alcohol Screening: Question Answer Notes Did you have a drink containing alcohol in the past year? No Points 0 Interpretation Negative Tobacco Use: Question Answer Notes Are you a: never smoker REASON FOR REFERRAL No Information VITAL SIGNS Weight 224.0 lbs Jul, Height 65 in Jul, BMI 37.27 kg/m2 Jul, Blood pressure systolic 126 mm Hg Jul, Blood pressure diastolic 78 mm Hg Jul, MEDICATIONS Medication SIG (Take, Route, Frequency, Duration) Notes Start Da te End Date Status Vitamin Active Sudafed 30 MG 1 tablet as needed Orally every 6 hrs for 5 day(s) Jun, Not-Taking Mucinex DM 30-600 MG 1 tablet as needed Orally every 12 hrs for 10 day(s) Jun, Not-Taking Neti Pot Sinus Wash 2300-700 MG as directed Nasally bid for 10 d ay(s) Jun, Not-Taking Novarel 20167 UNIT Intramuscular No t-Taking Fioricet Active Metronidazole 0.75 % 1 application (perioral) External Once a da y for 30 days Not-Taking Flonase 50 MCG/ACT 1 spray in each nostril Nasally Twice a day f or 30 day(s) Jun, Not-Taking PROCEDURES No Information RESULTS No Results REASON FOR VISIT Perioral Derm (Estelle Nichole PT) MEDICAL (GENERAL) HISTORY Type Description Date Medical History migraine headaches Surgical History cholecystectomy Hospitalization History childbirth Goals Section No Information Health Concerns No Information MEDICAL EQUIPMENT No Information MENTAL STATUS No Information FUNCTIONAL STATUS No Information ASSESSMENTS Encounter Date Diagnosis Assessment Notes Treatment Notes Treatm ent Clinical Notes Jul, Perioral dermatitis (ICD-10 - L71.0) Restart metronidazole cream (patient is 31 weeks ). PLAN OF TREATMENT Treatment Notes Assessment Notes Clinical Notes Perioral dermatitis Restart metronidazol e cream (patient is 31 weeks ). Next Appt Details [facility]/Perioral derm-summer Reason: Provider Name:Cristina Rollins, 2020-07-24 09:20:00 AM, [address] [place] [address], [phone], Provider Name:Lorenza Osullivan, 2020-12-10 10:45:00 AM, [address] [place], [address], Insurance Providers Payer Name Payer Address Payer Phone Insured Name Patient Relati onship to Insured Coverage Start Date Coverage End Date [facility] [employer] [facility] [address] [facility] [phone] GINNA LOCKHART self
--- OUTSIDE RECORDS SUMMARY | 2020-08-29 09:07 | CCD | Continuity of Care Document ---
Author Author Jailyn VINSON M.D. Organization Unknown Address [address] [place] [address] Phone [phone] Care Team Providers Care Disabilities Caregiver Name Role Phone Larry Nava M.D. AUTM [phone] Problems Active Problems Provider Date Headache Risa Vinson M.D. Onset: 06/22/2020 Social History Type Date Description Comments Sex Unknown Allergies, Adverse Reactions, Alerts Description No Information Available Medications Active Medications SIG Qnty Indications Ordering Provide r Date Magnesium Oxide 400mg Capsules 1 tab daily x 1 week; then 1 tab twice a day 60caps Checo Salvador 04/30/2020 Riboflavin 100mg Capsules 1 by mouth twice a day 60janaes Risa Vinson M.D. 04/30/2020 Immunizations Description No Information Available Vital Signs Description No Information Available Results Test Acquired Date Facility Test Result H/L Range Note Comprehensive Metabolic Profil 05/25/2020 [facility] Glucose, Fasting 81 mg/dL Normal 70-100 Blood Urea Nitrogen 8 mg/dL Normal 7-18 Creatinine For GFR 0.63 mg/dL Normal 0.55-1.30 Glomerular Filtration Rate > 60.0 Normal >60 1 Sodium Level 137 mEq/L Normal 136-145 Potassium Serum 4.2 mEq/L Normal 3.5-5.1 Chloride Level 105 mEq/L Normal 98-107 Carbon Dioxide Level 25 mEq/L Normal 21-32 Anion Gap 7 mEq/L Low 8-16 Calcium Level 9.4 mg/dL Normal 8.5-10.1 Ast/Sgot 12 U/L Normal 7-37 Alt/SGPT 12 U/L Normal 12-78 Alkaline Phosphatase 142 U/L High 45-117 Bilirubin,Total 0.2 mg/dL Normal 0.2-1.0 Total Protein 6.6 GM/DL Normal 6.4-8.2 Albumin 3.0 GM/DL Low 3.2-5.2 Albumin/Globulin Ratio 0.8 Low 1.2-2.2 Laboratory test finding 05/25/2020 [facility] Thyroid Stimulating Hormone 1.620 uIU/ML Normal 0.358-3.740 Total 25(Oh) Vitamin D 26.9 NG/ML Low 30.0-100.0 Rheumatoid Factor Quant < 10.0 IU/mL Normal <15.0 CBC With Differential 05/25/2020 [facility] White Blood Count 16.9 10 High 4.0-10.0 Red Blood Count 4.44 10 Normal 4.00-5.40 Hemoglobin 13.2 g/dL Normal 12.0-15.5 Hematocrit 41.1 % Normal 36.0-47.0 Mean Corpuscular Volume 92.6 fl Normal 80.0-96.0 Mean Corpuscular Hemoglobin 29.7 pg Normal 27.0-33.0 Mean Corpuscular HGB Conc 32.1 g/dL Normal 32.0-36.5 Red Cell Distribution Width 13.4 % Normal 11.5-14.5 Platelet Count, Automated 250 10 Normal 150-450 Neutrophils % 72.3 % High 36.0-66.0 Lymph % 19.7 % Low 24.0-44.0 [place] % 6.3 % High 0.0-5.0 Eos % 0.5 % Normal 0.0-3.0 Baso % 0.3 % Normal 0.0-1.0 Immature Granulocyte % 0.9 % Normal 0-3.0 Nucleated Red Blood Cell % 0.0 % Normal 0-0 Neutrophils # 12.2 10 High 1.5-8.5 Lymph # 3.3 10 Normal 1.5-5.0 [place] # 1.1 10 High 0.0-0.8 Eos # 0.1 10 Normal 0.0-0.5 Baso # 0.1 10 Normal 0.0-0.2 Laboratory test finding 05/25/2020 [facility] Erythrocyte Sedimentation Rate 41 mm/hr High 0-20 Antinuclear Antibodies 05/25/2020 [facility] Antinuclear Antibodies Direct Negative Normal Negative 2 1 Units are mL/min/1.73 m2 Chronic Kidney Disease Staging per NKF: Stage I & II GFR >=60 Normal to Mildly Decreased Stage III GFR 30-59 Moderately Decreased Stage IV GFR 15-29 Severely Decreased Stage V GFR <15 Very Little GFR Left ESRD GFR <15 on INFORMATICS COORDINATOR 2 Performed at: RN - [facility] [address] [id number] Wire Mesh Knitter: Maricruz Sarkar MD, Phone: [phone] Procedures Date Code Description Status 06/15/2020 03724 EEG Recording Awake & Asleep Com pleted 06/15/2020 79410 EEG Recording Awake & Asleep Com pleted 05/25/2020 01048 MRI Brain W/O Contrast Completed 05/25/2020 22133 MRI Brain W/O Contrast Completed 05/25/2020 57762 Magnetic Resonance Angiography N jen W/O Contrast Materials Completed 05/25/2020 71073 Magnetic Resonance Angiography N jen W/O Contrast Materials Completed 05/25/2020 88865 Magnetic Resonance Angiogtaphy H ead W/O Contrast Material(S) Completed 05/25/2020 97714 Magnetic Resonance Angiogtaphy H ead W/O Contrast Material(S) Completed Medical Devices Description No Information Available Encounters Type Date Location Provider Dx Diagnosis Office Visit 06/30/2020 9:30a [place] M.[place] R42 Dizziness and giddiness G43.809 Other migraine, not intracta ble, without status migrainosus G93.2 Benign intracranial hyperten skip H53.8 Other visual disturbances Office Visit 06/22/2020 4:30p [place] M.[place] G43.809 Other migraine, not intractable, without status migrainosus G93.2 Benign intracranial hyperten skip H53.8 Other visual disturbances Office Visit 04/30/2020 2:00p [place] M[place] R42 Dizziness and giddiness R41.3 Other amnesia G43.809 Other migraine, not intracta ble, without status migrainosus R56.9 Unspecified convulsions H53.8 Other visual disturbances Assessments Date Code Description Provider 06/30/2020 R42 Dizziness and giddiness Risa abreu M.D. 06/30/2020 G43.809 Other migraine, not intractable, without status migrainosus Risa Alisson, M.D. 06/30/2020 G93.2 Benign intracranial hypertension Risa Alisson, M.D. 06/30/2020 H53.8 Other visual disturbances Risa Alisson, M.D. 06/22/2020 G43.809 Other migraine, not intractable, without status migrainosus Risa Alisson, M.D. 06/22/2020 G93.2 Benign intracranial hypertension Risa Alisson, M.D. 06/22/2020 H53.8 Other visual disturbances Risa Alisson, M.D. 06/15/2020 R41.82 Altered mental status, unspecifi ed Risa Alisson, M.D. 06/15/2020 R41.82 Altered mental status, unspecifi ed EEG 06/15/2020 G40.89 Other seizures Risa Alisson, M. D. 06/15/2020 G40.89 Other seizures EEG 05/25/2020 G43.809 Other migraine, not intractable, without status migrainosus LeslyCheco Singh.DDeana 05/25/2020 G43.809 Other migraine, not intractable, without status migrainosus MRI 05/25/2020 R42 Dizziness and giddiness Checo Mckeon.DDeana 05/25/2020 R42 Dizziness and giddiness MRI 04/30/2020 R42 Dizziness and giddiness Checo Fischer.DDeana 04/30/2020 R41.3 Other amnesia Checo Salvador. DDeana 04/30/2020 G43.809 Other migraine, not intractable, without status migrainosus Checo Salvador.DDeana 04/30/2020 R56.9 Unspecified convulsions Risa L brady, M.DDeana 04/30/2020 H53.8 Other visual disturbances Risa Vinson M.D. Plan of Treatment Future Appointment(s):* 08/04/2020 8:00 am - Risa Vinson M.D. at Main office - [place] Functional Status Description No Information Available Mental Status Description No Information Available Referrals Refer to Dr Reason for Referral Status Appt Date Shaun Whipple M.D. ADILENE - PSEUDOTUMOR PATIENT IS Cre ated [facility] Neuro-Ophthalmology Dept. Of Neurology-[address] [place] [address] [phone] Karen Freeman M.D. QUESTIONABLE PAPILLEDEMA AND VISION LOSS Cr eated [facility] [address] [place] [address] [phone] Created Created
--- OUTSIDE RECORDS SUMMARY | 2020-08-29 09:07 | CCD ---
Author Author [facility] Organization [facility] Address Unknown Phone Unavailable Care Team Providers Care Cam Milling Machine Operator Name Role Phone Cristina Rollins Unavailable PROBLEMS Type Condition ICD9-CM Code BXT37-VF Code Onset Dates Condition S tatus SNOMED Code Notes Problem Supervision of other normal Z34.80 Ac tive [id number] ALLERGIES Allergen (clinical drug ingredient) Drug/Non Drug Allergy do cumented on EMR Reaction Allergy Type Onset Date Status amoxicillin Amoxicillin([facility] Code:[address]-28) Hives Drug Aller gy Active ENCOUNTERS from 1989 to 2020-06-03 Encounter Location Date Provider Diagnosis [facility] [address] [place] [phone] May, Cristina Rollins Other specified preg cornelio related conditions, second trimester O26.892 ; Headache, unspecified R51.9 and 22 weeks gestation of Z3A.22 IMMUNIZATIONS Vaccine Route Administration Date Status Influenza [...] FOR REFERRAL No Information VITAL SIGNS Weight 221.6 lbs May, Height 65 in May, BMI 36.876 kg/m2 May, Blood pressure systolic 124 mm Hg May, Blood pressure diastolic 74 mm Hg May, MEDICATIONS Medication SIG (Take, Route, Frequency, Duration) Notes Start Da te End Date Status Fioricet Active Neti Pot Sinus Wash 2300-700 MG as directed Nasally bid for 10 d ay(s) Jun, Not-Taking Mucinex DM 30-600 MG 1 tablet as needed Orally every 12 hrs for 10 day(s) Jun, Not-Taking Novarel 52844 UNIT Intramuscular No t-Taking Vitamin Active Sudafed 30 MG 1 tablet as needed Orally every 6 hrs for 5 day(s) Jun, Not-Taking Flonase 50 MCG/ACT 1 spray in each nostril Nasally Twice a day f or 30 day(s) Jun, Not-Taking PROCEDURES No Information RESULTS Component Value Reference Range WWBC OBS FOLLOW UP OR REPEAT Reviewed date:06/02/2020 11:25:10 Interpretation: Performing Lab:[facility],[address]], ,[place] [address] REASON FOR VISIT 4 WK PN MEDICAL (GENERAL) HISTORY Type Description Date Medical History migraine headaches Hospitalization History childbirth Goals Section No Information Health Concerns No Information MEDICAL EQUIPMENT No Information MENTAL STATUS No Information FUNCTIONAL STATUS No Information ASSESSMENTS Encounter Date Diagnosis Assessment Notes Treatment Notes Treatm ent Clinical Notes May, Other specified re lated conditions, second trimester (ICD-10 - O26.892) May, Headache, unspecified (ICD-10 - R51.9) May, 22 weeks gestation of (ICD-10 - Z3A.22 ) PLAN OF TREATMENT Treatment Notes Test Name Order Date CBC - Complete Blood Count 2020-06-03 Type and Screen (D Rh Antibody Screen) 2020-06-03 Glucose Challenge Test 1 Hour 2020-06-03 Next Appt Details 4 Weeks Reason: Provider Name:Rhea Ellis, 2020-06-11 10:00:00 AM, [address] [place], [address], Provider Name:Estelle Marin, 10:30:00 AM, [facility] [place] [address] [place] [address], [id number], Follow Up:4 Weeksprenatal Insurance Providers Payer Name Payer Address Payer Phone Insured Name Patient Relati onship to Insured Coverage Start Date Coverage End Date [facility] [place] [address] [facility] [id number] GINNA LOCKHART self
--- OUTSIDE RECORDS SUMMARY | 2020-08-29 09:07 | CCD | Continuity of Care Document ---
Author Author Jailyn VINSON M.D. Organization Unknown Address [address] [place] [address] Phone [phone] Care Team Providers Care Certified Cytotechnologist Name Role Phone Larry Nava M.D. AUTM [phone] Problems Active Problems Provider Date Headache Risa [...] H/L Range Note Comprehensive Metabolic Profil 05/25/[address] [facility] Glucose, Fasting 81 mg/dL Normal 70-100 Blood [...] 0.8 Low 1.2-2.2 Laboratory test finding 05/25/[address] [facility] Thyroid Stimulating Hormone 1.620 uIU/ML Normal 0.358-3.740 Total 25(Oh) Vitamin D 26.9 NG/ML Low 30.0-100.0 Rheumatoid Factor Quant < 10.0 IU/mL Normal <15.0 CBC With Differential 05/25/[address] [facility] White Blood Count 16.9 10 High 4.0-10.0 [...] 36.0-66.0 Lymph % 19.7 % Low 24.0-44.0 [place] % 6.3 % High 0.0-5.0 Eos % 0.5 % Normal 0.0-3.0 Baso % 0.3 % Normal 0.0-1.0 Immature Granulocyte % 0.9 % Normal 0-3.0 Nucleated Red Blood Cell % 0.0 % Normal 0-0 Neutrophils # 12.2 10 High 1.5-8.5 Lymph # 3.3 10 Normal 1.5-5.0 [place] # 1.1 10 High 0.0-0.8 Eos # 0.1 10 Normal 0.0-0.5 Baso # 0.1 10 Normal 0.0-0.2 Laboratory test finding 05/25/[address] [facility] Erythrocyte Sedimentation Rate 41 mm/hr High 0-20 Antinuclear Antibodies 05/25/[address] [facility] Antinuclear Antibodies Direct Negative Normal Negative 2 1 Units are mL/min/1.73 m2 Chronic Kidney Disease Staging per NKF: Stage I & II GFR >=60 Normal to Mildly Decreased Stage III GFR 30-59 Moderately Decreased Stage IV GFR 15-29 Severely Decreased Stage V GFR <15 Very Little GFR Left ESRD GFR <15 on FOILING MACHINE ADJUSTER 2 Performed at: RN - [facility] [address] [id number] Box Loader: Maricruz Sarkar MD, Phone: [phone] Procedures Date Code Description Status 06/15/2020 85812 EEG Recording Awake & Asleep Com pleted 06/15/2020 37575 EEG Recording Awake & Asleep Com pleted 05/25/2020 39898 MRI Brain W/O Contrast Completed 05/25/2020 98022 MRI Brain W/O Contrast Completed 05/25/2020 12716 Magnetic Resonance Angiography N jen W/O Contrast Materials Completed 05/25/2020 08307 Magnetic Resonance Angiography N jen W/O Contrast Materials Completed 05/25/2020 42370 Magnetic Resonance Angiogtaphy H ead W/O Contrast Material(S) Completed 05/25/2020 21065 Magnetic Resonance Angiogtaphy H ead W/O Contrast Material(S) Completed Medical Devices Description No Information Available Encounters Type Date Location Provider Dx Diagnosis Office Visit 06/30/2020 9:30a [place] M.[place] R42 Dizziness and giddiness G43.809 Other migraine, not intracta ble, without status migrainosus G93.2 Benign intracranial hyperten skip H53.8 Other visual disturbances Office Visit 06/22/2020 4:30p [place] M.[place]. G43.809 Other migraine, not intractable, without status migrainosus G93.2 Benign intracranial hyperten skip H53.8 Other visual disturbances Office Visit 04/30/2020 2:00p [place] - [place] M.[place]. R42 Dizziness and giddiness R41.3 [...] Other migraine, not intractable, without status migrainosus Lesly Alisson, M.D. 05/25/2020 G43.809 Other migraine, not intractable, without status migrainosus MRI 05/25/2020 [place]42 Dizziness and giddiness Lesly La john M.D. 05/25/2020 R42 Dizziness and giddiness MRI 04/30/2020 [place]42 Dizziness and giddiness Risa L brady, M.D. 04/30/2020 R41.3 Other amnesia Risa Alisson, M. D. 04/30/2020 G43.809 Other migraine, not intractable, without status migrainosus Risa Alisson, M.D. 04/30/2020 R56.9 Unspecified convulsions Risa L brady, M.D. 04/30/2020 H53.8 Other visual disturbances Risaus Vinson M.DDeana Plan of Treatment No Information Available Functional Status Description No Information Available Mental Status Description No Information Available Referrals Refer to Reason for Referral Status Appt Date Shaun Whipple M.D. ADILENE - PSEUDOTUMOR PATIENT IS Cre ated [facility] Neuro-Ophthalmology Dept. Of Neurology-[address] [place], [place] [id number] [phone] Karen Freeman M.D. QUESTIONABLE PAPILLEDEMA AND VISION LOSS Cr eated [facility] [address] [place], [place] [address] [phone] Created Created
--- OUTSIDE RECORDS SUMMARY | 2020-08-29 09:07 | CCD | Continuity of Care Document ---
Author Author Jailyn GARCIA Organization Unknown Address [address] [place] [address] Phone [phone] Care Team Providers Care Handmade Tile Artist Name Role Phone Juliette Live P.A.-C. AUTM [phone] Larry Nava M.D. AUTM [phone] Problems Description No Information Available Social History Type Date Description Comments Sex Unknown Allergies, Adverse Reactions, Alerts Description No Information Available Medications Active Medications SIG Qnty Indications Ordering Provide r Date Magnesium Oxide 400mg Capsules 1 tab daily x 1 week; then 1 tab twice a day 60caps Checo Salvador 04/30/2020 Riboflavin 100mg Capsules 1 by mouth twice a day 60caps Risa Vinson M.D. 04/30/2020 Immunizations Description No Information Available Vital Signs Description No Information Available Results Test Acquired Date Facility Test Result H/L Range Note Comprehensive Metabolic Profil 05/25/2020 [facility] Glucose, Fasting 81 mg/dL Normal 70-100 Blood [...] 0.8 Low 1.2-2.2 Laboratory test finding 05/25/2020 [facility] Thyroid Stimulating Hormone 1.620 uIU/ML Normal 0.358-3.740 Total 25(Oh) Vitamin D 26.9 NG/ML Low 30.0-100.0 Rheumatoid Factor Quant < 10.0 IU/mL Normal <15.0 CBC With Differential 05/25/2020 [facility] White Blood Count 16.9 10 High 4.0-10.0 [...] 36.0-66.0 Lymph % 19.7 % Low 24.0-44.0 [place] % 6.3 % High 0.0-5.0 Eos % 0.5 % Normal 0.0-3.0 Baso % 0.3 % Normal 0.0-1.0 Immature Granulocyte % 0.9 % Normal 0-3.0 Nucleated Red Blood Cell % 0.0 % Normal 0-0 Neutrophils # 12.2 10 High 1.5-8.5 Lymph # 3.3 10 Normal 1.5-5.0 [place] # 1.1 10 High 0.0-0.8 Eos # 0.1 10 Normal 0.0-0.5 Baso # 0.1 10 Normal 0.0-0.2 Laboratory test finding 05/25/2020 [facility] Erythrocyte Sedimentation Rate 41 mm/hr High 0-20 Antinuclear Antibodies 05/25/2020 [facility] Antinuclear Antibodies Direct Negative Normal Negative 2 1 Units are mL/min/1.73 m2 Chronic Kidney Disease Staging per NKF: Stage I & II GFR >=60 Normal to Mildly Decreased Stage III GFR 30-59 Moderately Decreased Stage IV GFR 15-29 Severely Decreased Stage V GFR <15 Very Little GFR Left ESRD GFR <15 on TEENAGE BABYSITTER 2 Performed at: RN - [facility] [address] [id number] Boom Operator: Maricruz Sarkar MD, Phone: [phone] Procedures Date Code Description Status 06/15/2020 90717 EEG Recording Awake & Asleep Com pleted 06/15/2020 22599 EEG Recording Awake & Asleep Com pleted 05/25/2020 18621 MRI Brain W/O Contrast Completed 05/25/2020 95369 MRI Brain W/O Contrast Completed 05/25/2020 91898 Magnetic Resonance Angiography N jen W/O Contrast Materials Completed 05/25/2020 69874 Magnetic Resonance Angiography N jen W/O Contrast Materials Completed 05/25/2020 53783 Magnetic Resonance Angiogtaphy H ead W/O Contrast Material(S) Completed 05/25/2020 97752 Magnetic Resonance Angiogtaphy H ead W/O Contrast Material(S) Completed Medical Devices Description No Information Available Encounters Type Date Location Provider Dx Diagnosis Office Visit 04/30/2020 2:00p Main office - [place] Risa Vinson M.D. R42 Dizziness and giddiness R41.3 Other amnesia G43.809 Other migraine, not intracta ble, without status migrainosus R56.9 Unspecified convulsions H53.8 Other visual disturbances Assessments Date Code Description Provider 06/15/2020 R41.82 Altered mental status, unspecifi ed Risa Vinson M.D. 06/15/2020 R41.82 Altered mental status, unspecifi ed EEG 06/15/2020 G40.89 Other seizures Jcakeline Salvador 06/15/2020 G40.89 Other seizures EEG 05/25/2020 G43.809 Other migraine, not intractable, without status migrainosus Lesly Vinson M.D. 05/25/2020 G43.809 Other migraine, not intractable, without status migrainosus MRI 05/25/2020 [place]42 Dizziness and giddiness Lesly Lazaro M.D. 05/25/2020 R42 Dizziness and giddiness MRI 04/30/2020 [place]42 Dizziness and giddiness Risa abreu M.D. 04/30/2020 R41.3 Other amnesia Jackeline Salvador 04/30/2020 G43.809 Other migraine, not intractable, without status migrainosus Risa Vinson M.D. 04/30/2020 R56.9 Unspecified convulsions Risa abreu M.D. 04/30/2020 H53.8 Other visual disturbances Risa Vinson M.D. Plan of Treatment Future Appointment(s):* 08/04/2020 8:00 am - Risa Vinson M.D. at Main office - [place] Functional Status Description No Information Available Mental Status Description No Information Available Referrals Refer to Dr Reason for Referral Status Appt Date Karen Freeman M.D. QUESTIONABLE PAPILLEDEMA AND VISION LOSS Cr eated [facility] [address] [place] [address] [phone] Created Created
--- OUTSIDE RECORDS SUMMARY | 2020-08-29 09:07 | CCD | Continuity of Care Document ---
Author Author Jailyn VINSON M.D. Organization Unknown Address [address] [place] [address] Phone [phone] Care Team Providers Care Scuba Diving Teacher Name Role Phone Juliette Live P.A.-C. AUTM [phone] Larry Nava M.D. AUTM [phone] Problems Active Problems Provider Date Headache Risa [...] H/L Range Note Comprehensive Metabolic Profil 05/25/2020 [facility] Glucose, Fasting 81 mg/dL Normal [...] 0.8 Low 1.2-2.2 Laboratory test finding 05/25/2020 [facility] Thyroid Stimulating Hormone 1.620 uIU/ML Normal 0.358-3.740 Total 25(Oh) Vitamin D 26.9 NG/ML Low 30.0-100.0 Rheumatoid Factor Quant < 10.0 IU/mL Normal <15.0 CBC With Differential 05/25/2020 [facility] White Blood Count 16.9 10 [...] 36.0-66.0 Lymph % 19.7 % Low 24.0-44.0 [place] % 6.3 % High 0.0-5.0 Eos % 0.5 % Normal 0.0-3.0 Baso % 0.3 % Normal 0.0-1.0 Immature Granulocyte % 0.9 % Normal 0-3.0 Nucleated Red Blood Cell % 0.0 % Normal 0-0 Neutrophils # 12.2 10 High 1.5-8.5 Lymph # 3.3 10 Normal 1.5-5.0 [place] # 1.1 10 High 0.0-0.8 Eos # 0.1 10 Normal 0.0-0.5 Baso # 0.1 10 Normal 0.0-0.2 Laboratory test finding 05/25/2020 [facility] Erythrocyte Sedimentation Rate 41 mm/hr High 0-20 Antinuclear Antibodies 05/25/2020 [facility] Antinuclear Antibodies Direct Negative Normal Negative 2 1 Units are mL/min/1.73 m2 Chronic Kidney Disease Staging per NKF: Stage I & II GFR >=60 Normal to Mildly Decreased Stage III GFR 30-59 Moderately Decreased Stage IV GFR 15-29 Severely Decreased Stage V GFR <15 Very Little GFR Left ESRD GFR <15 on WIRELESS DEVELOPMENT MANAGER 2 Performed at: RN - [facility] [address] [id number] Insurance Account Executive: Maricruz Sarkar MD, Phone: [phone] Procedures Date Code Description Status 06/15/2020 31638 EEG Recording Awake & Asleep Com pleted 06/15/2020 39242 EEG Recording Awake & Asleep Com pleted 05/25/2020 05554 MRI Brain W/O Contrast Completed 05/25/2020 71962 MRI Brain W/O Contrast Completed 05/25/2020 78304 Magnetic Resonance Angiography N jen W/O Contrast Materials Completed 05/25/2020 28843 Magnetic Resonance Angiography N jen W/O Contrast Materials Completed 05/25/2020 36785 Magnetic Resonance Angiogtaphy H ead W/O Contrast Material(S) Completed 05/25/2020 37658 Magnetic Resonance Angiogtaphy H ead W/O Contrast Material(S) Completed Medical Devices Description No Information Available Encounters Type Date Location Provider Dx Diagnosis Office Visit 06/22/2020 4:30p Main office - [place] i[place] Vinson M.D. G43.809 Other migraine, not intractable, without status migrainosus G93.2 Benign intracranial hyperten skip H53.8 Other visual disturbances Office Visit 04/30/2020 2:00p [place] office - [place] M.[place]. R42 Dizziness and giddiness R41.3 Other amnesia G43.809 Other migraine, not intracta ble, without status migrainosus R56.9 Unspecified convulsions H53.8 Other visual disturbances Assessments Date Code Description Provider 06/22/2020 G43.809 Other migraine, not intractable, without status migrainosus Risa Vinson M.D. 06/22/2020 G93.2 Benign intracranial hypertension Risa Vinson M.D. 06/22/2020 H53.8 Other visual disturbances Risa Vinson M.D. 06/15/2020 R41.82 Altered mental status, unspecifi ed Risa Vinson M.D. 06/15/2020 R41.82 Altered mental status, unspecifi ed EEG 06/15/2020 G40.89 Other seizures Jackeline Salvador 06/15/2020 G40.89 Other seizures EEG 05/25/2020 [...] Risa Vinson M.D. at Main office - [place] Functional Status Description No Information Available Mental Status Description No Information Available Referrals Refer to Dr Reason for Referral Status Appt Date Shaun Whipple M.D. ADILENE - PSEUDOTUMOR PATIENT IS Cre ated [facility] Neuro-Ophthalmology Dept. Of Neurology-[address] [place] [address] [phone] Karen Freeman M.D. QUESTIONABLE PAPILLEDEMA AND VISION LOSS Cr eated [facility] [place], [place] [id number] [phone] Created Created
--- OUTSIDE RECORDS SUMMARY | 2020-08-29 09:07 | CCD ---
Author Author [facility] Organization [facility] Address Unknown Phone Unavailable Care Team Providers Care Client Resolution Specialist Name Role Phone Rhea Ellis Unavailable PROBLEMS Type Condition ICD9-CM Code [id number] Code Onset Dates Condition S tatus SNOMED Code Notes Problem Supervision of other normal Z34.80 Ac tive [id number] ALLERGIES Allergen (clinical drug ingredient) Drug/Non Drug Allergy do cumented on EMR Reaction Allergy Type Onset Date Status amoxicillin Amoxicillin([facility] Code:[address]-52) Hives Drug Aller gy Active ENCOUNTERS from 1989 to 2020-06-16 Encounter Location Date Provider Diagnosis [facility] [address] [place] [phone] Jun, Rhea Ellis Other specified p regnancy related conditions, second trimester O26.892 and 26 weeks gestation of Z3A.26 IMMUNIZATIONS Vaccine Route Administration Date Status Influenza [...] FOR REFERRAL No Information VITAL SIGNS Weight 225.6 lbs Jun, Weight-kg 102.33 kg Jun, Height 65 in Jun, BMI 37.542 kg/m2 Jun, Blood pressure systolic 122 mm Hg Jun, Blood pressure diastolic 76 mm Hg Jun, MEDICATIONS Medication SIG (Take, Route, Frequency, Duration) Notes Start Da te End Date Status Novarel 50876 UNIT Intramuscular No t-Taking Neti Pot Sinus Wash 2300-700 MG as directed Nasally bid for 10 d ay(s) Jun, Not-Taking Flonase 50 MCG/ACT 1 spray in each nostril Nasally Twice a day f or 30 day(s) Jun, Not-Taking Fioricet Active Sudafed 30 MG 1 tablet as needed Orally every 6 hrs for 5 day(s) Jun, Not-Taking Vitamin Active Mucinex DM 30-600 MG 1 tablet as needed Orally every 12 hrs for 10 day(s) Jun, Not-Taking PROCEDURES No Information RESULTS No Results REASON FOR VISIT 4wk pn MEDICAL (GENERAL) HISTORY Type Description Date Medical History migraine headaches Hospitalization History childbirth Goals Section No Information Health Concerns No Information MEDICAL EQUIPMENT No Information MENTAL STATUS No Information FUNCTIONAL STATUS No Information ASSESSMENTS Encounter Date Diagnosis Assessment Notes Treatment Notes Treatm ent Clinical Notes Jun, Other specified re lated conditions, second trimester (ICD-10 - O26.892) Jun, 26 weeks gestation of (ICD-10 - Z3A.26 ) PLAN OF TREATMENT Next Appt Details 4 Weeks Reason: Provider Name:Lorenza Osullivan, 2020-07-09 09:15:00 AM, [facility] [place], [address], Provider Name:Kathy Wills, 2020-07 09:00:00 AM, [address] [place] [address], [phone], Follow Up:4 WeeksPrenatal Insurance Providers Payer Name Payer Address Payer Phone Insured Name Patient Relati onship to Insured Coverage Start Date Coverage End Date [facility] [address] [facility] [phone] GINNA LOCKHART self
--- OUTSIDE RECORDS SUMMARY | 2020-08-29 09:07 | CCD | Continuity of Care Document ---
Author Author Jailyn VINSON M.D. Organization Unknown Address [address] [place] [id number] Phone [phone] Care Team Providers Care Pluck Separator Name Role Phone Larry Nava M.D. AUTM [phone] Problems Active Problems Provider Date Headache Risa [...] H/L Range Note Comprehensive Metabolic Profil 05/25/2020 [facility] Glucose, Fasting 81 mg/dL Normal [...] 0.8 Low 1.2-2.2 Laboratory test finding 05/25/2020 [facility] Thyroid Stimulating Hormone 1.620 uIU/ML Normal 0.358-3.740 Total 25(Oh) Vitamin D 26.9 NG/ML Low 30.0-100.0 Rheumatoid Factor Quant < 10.0 IU/mL Normal <15.0 CBC With Differential 05/25/2020 [facility] White Blood Count 16.9 10 [...] 36.0-66.0 Lymph % 19.7 % Low 24.0-44.0 [place] % 6.3 % High 0.0-5.0 Eos % 0.5 % Normal 0.0-3.0 Baso % 0.3 % Normal 0.0-1.0 Immature Granulocyte % 0.9 % Normal 0-3.0 Nucleated Red Blood Cell % 0.0 % Normal 0-0 Neutrophils # 12.2 10 High 1.5-8.5 Lymph # 3.3 10 Normal 1.5-5.0 [place] # 1.1 10 High 0.0-0.8 Eos # 0.1 10 Normal 0.0-0.5 Baso # 0.1 10 Normal 0.0-0.2 Laboratory test finding 05/25/2020 [facility] Erythrocyte Sedimentation Rate 41 mm/hr High 0-20 Antinuclear Antibodies 05/25/2020 [facility] Antinuclear Antibodies Direct Negative Normal Negative 2 1 Units are mL/min/1.73 m2 Chronic Kidney Disease Staging per NKF: Stage I & II GFR >=60 Normal to Mildly Decreased Stage III GFR 30-59 Moderately Decreased Stage IV GFR 15-29 Severely Decreased Stage V GFR <15 Very Little GFR Left ESRD GFR <15 on PLATE MAKER ZINC 2 Performed at: RN - [facility] [address] [id number] Central Office Mechanic: Maricruz Sarkar MD, Phone: [phone] Procedures Date Code Description Status 06/15/2020 67496 EEG Recording Awake & Asleep Com pleted 06/15/2020 68337 EEG Recording Awake & Asleep Com pleted 05/25/2020 30770 MRI Brain W/O Contrast Completed 05/25/2020 18741 MRI Brain W/O Contrast Completed 05/25/2020 74986 Magnetic Resonance Angiography N jen W/O Contrast Materials Completed 05/25/2020 58074 Magnetic Resonance Angiography N jen W/O Contrast Materials Completed 05/25/2020 62916 Magnetic Resonance Angiogtaphy H ead W/O Contrast Material(S) Completed 05/25/2020 64379 Magnetic Resonance Angiogtaphy H ead W/O Contrast Material(S) Completed Medical Devices Description No Information Available Encounters Type Date Location Provider Dx Diagnosis Office Visit 06/22/2020 4:30p [place] M.[place]. G43.809 Other migraine, not intractable, without status migrainosus G93.2 Benign intracranial hyperten skip H53.8 Other visual disturbances Office Visit 04/30/2020 2:00p [place] M.[place]. R42 Dizziness and giddiness R41.3 [...] Risa Vinson M.D. at Main office - [place] Functional Status Description No Information Available Mental Status Description No Information Available Referrals Refer to Reason for Referral Status Appt Date Shaun Whipple M.D. ADILENE - PSEUDOTUMOR PATIENT IS Cre ated [facility] Neuro-Ophthalmology Dept. Of Neurology-[address] [place] [address] [phone] Karen Freeman M.D. QUESTIONABLE PAPILLEDEMA AND VISION LOSS Cr eated [facility] [address] [place] [id number] [phone] Created Created
--- OUTSIDE RECORDS SUMMARY | 2020-08-29 09:07 | CCD ---
Author Author [facility] Organization [facility] Address Unknown Phone Unavailable Care Team Providers Care Engineering Technical Analyst Name Role Phone Kathy Wills Unavailable PROBLEMS Type Condition ICD9-CM Code [id number] Code Onset Dates Condition S tatus SNOMED Code Notes Problem Supervision of other normal Z34.80 Ac tive [id number] Problem Perioral dermatitis L71.0 Active [id number] ALLERGIES Allergen (clinical drug ingredient) Drug/Non Drug Allergy do cumented on EMR Reaction Allergy Type Onset Date Status amoxicillin Amoxicillin([facility] Code:[address]-16) Hives Drug Aller gy Active ENCOUNTERS from 1989 to 2020-07-16 Encounter Location Date Provider Diagnosis [facility] [address] [place] [phone] Jul, Kathy Wills 30 weeks gestation o f Z3A.30 and Encounter for related examination in third trimester Z34.83 IMMUNIZATIONS Vaccine Route Administration Date Status Influenza [...] FOR REFERRAL No Information VITAL SIGNS Weight 224 lbs Jul, Height 65 in Jul, BMI 37.276 kg/m2 Jul, Blood pressure systolic 132 mm Hg Jul, Blood pressure diastolic 86 mm Hg Jul, MEDICATIONS Medication SIG (Take, [...] for 10 d ay(s) Jun, Not-Taking Novarel 95543 UNIT Intramuscular No t-Taking Fioricet Active Metronidazole [...] Treatment Notes Treatm ent Clinical Notes Jul, 30 weeks gestation of (ICD-10 - Z3A.30 ) Jul, Encounter for rela marivel examination in third trimester (ICD-10 - Z34.83) PLAN OF TREATMENT Next Appt Details 2-4wk Reason:PN Provider Name:Cristina Rollins, 2020-07-24 09:20:00 AM, [address] [place] [address], [phone], Provider Name:Lorenza Osullivan, 2020-12-10 10:45:00 AM, [address] [place] [address], [phone], Follow Up:2-4wkPN Insurance Providers Payer Name Payer Address Payer Phone Insured Name Patient Relati onship to Insured Coverage Start Date Coverage End Date [facility] [address] [facility] [address] GINNA LOCKHART self
--- OUTSIDE RECORDS SUMMARY | 2020-08-29 09:07 | CCD ---
Author Author [facility] Organization [facility] Address Unknown Phone Unavailable Care Team Providers Care Physician Support Coordinator Name Role Phone Cristina Rollins Unavailable PROBLEMS Type Condition ICD9-CM Code [id number] Code Onset Dates Condition S tatus W/U Status Risk SNOMED Code Notes Problem Perioral dermatitis L71.0 Active confirmed 990773190 Problem Migraine without status migr ainosus, not intractable, unspecified migraine type G43.909 Active confirmed 64675424 Problem Supervision of other normal Z34.80 Ac tive confirm [id number] ALLERGIES Allergen (clinical drug ingredient) Drug/Non Drug Allergy do cumented on EMR Reaction Allergy Type Onset Date Status amoxicillin Amoxicillin([facility] Code:[address]-55) Hives Drug Aller gy Active ENCOUNTERS from 1989 to 2020-08-07 Encounter Location Date Provider Diagnosis [facility] [address] [place] [phone] Jul, Cristina Rollins Supervision of pregn vikki resulting from assisted reproductive technology, third trimester O09.813 and 32 weeks gestation of Z3A.32 IMMUNIZATIONS Vaccine Route Administration Date Status Influenza [...] FOR REFERRAL No Information VITAL SIGNS Weight 224.2 lbs Jul, Height 65 in Jul, BMI 37.309 kg/m2 Jul, Blood pressure systolic 126 mm Hg Jul, Blood pressure diastolic 76 mm Hg Jul, MEDICATIONS Medication SIG (Take, Route, Frequency, Duration) Notes Start Da te End Date Status Vitamin Active Sudafed 30 MG 1 tablet as needed Orally every 6 hrs for 5 day(s) Jun, Not-Taking Mucinex DM 30-600 MG 1 tablet as needed Orally every 12 hrs for 10 day(s) Jun, Not-Taking Metronidazole 0.75 % 1 application (perioral) External Once a da y for 30 days Not-Taking Flonase 50 MCG/ACT 1 spray in each nostril Nasally Twice a day f or 30 day(s) Jun, Not-Taking Fioricet Active Neti Pot Sinus Wash 2300-700 MG as directed Nasally bid for 10 d ay(s) Jun, Not-Taking Novarel 62868 UNIT Intramuscular No t-Taking PROCEDURES No Information RESULTS No Results REASON FOR VISIT 4wk pn MEDICAL (GENERAL) HISTORY Type Description Date Medical History migraine headaches Surgical History cholecystectomy Hospitalization History childbirth Goals Section No Information Health Concerns No Information MEDICAL EQUIPMENT No Information MENTAL STATUS No Information FUNCTIONAL STATUS No Information ASSESSMENTS Encounter Date Diagnosis Assessment Notes Treatment Notes Treatm ent Clinical Notes Jul, Supervision of res ulting from assisted reproductive technology, third trimester (ICD-10 - O09.813) Jul, 32 weeks gestation of (ICD-10 - Z3A.32 ) PLAN OF TREATMENT Next Appt Details 2 Weeks Reason: Provider Name:Cristina Rollins, 2020-08-14 11:20:00 AM, [address] [place] [address], [phone], Provider Name:Lorenza Osullivan, 2020-12-10 10:45:00 AM, [facility] [place], [address], Follow Up:2 Weeksprenatal Insurance Providers Payer Name Payer Address Payer Phone Insured Name Patient Relati onship to Insured Coverage Start Date Coverage End Date [facility] [address] [facility] [phone] GINNA LOCKHART self
--- OUTSIDE RECORDS SUMMARY | 2020-08-29 09:07 | CCD | Continuity of Care Document ---
Author Author Jailyn VINSON M.D. Organization Unknown Address [address] [place] [address] Phone [phone] Care Team Providers Care Phone Circuit Operator Name Role Phone Juliette Live P.A.-C. AUTM [phone] Larry Nava M.D. AUTM [phone] Problems Description No Information Available Social History Type Date Description Comments Sex Unknown Allergies, Adverse Reactions, Alerts Description No Information Available Medications Active Medications SIG Qnty Indications Ordering Provide r Date Magnesium Oxide 400mg Capsules 1 tab daily x 1 week; then 1 tab twice a day 60caps Checo [place] 04/30/2020 Riboflavin 100mg Capsules 1 by mouth twice a day 60melissa Vinson M.D. 04/30/2020 Immunizations Description No Information Available Vital Signs Description No Information Available Results Test Acquired Date Facility Test Result H/L Range Note Comprehensive Metabolic Profil 05/25/2020 [facility] Glucose, Fasting 81 mg/dL Normal 70-100 Blood [...] 0.8 Low 1.2-2.2 Laboratory test finding 05/25/2020 [facility] Thyroid Stimulating Hormone 1.620 uIU/ML Normal 0.358-3.740 Total 25(Oh) Vitamin D 26.9 NG/ML Low 30.0-100.0 Rheumatoid Factor Quant < 10.0 IU/mL Normal <15.0 CBC With Differential 05/25/2020 [facility] White Blood Count 16.9 10 High 4.0-10.0 [...] 36.0-66.0 Lymph % 19.7 % Low 24.0-44.0 [place] % 6.3 % High 0.0-5.0 Eos % 0.5 % Normal 0.0-3.0 Baso % 0.3 % Normal 0.0-1.0 Immature Granulocyte % 0.9 % Normal 0-3.0 Nucleated Red Blood Cell % 0.0 % Normal 0-0 Neutrophils # 12.2 10 High 1.5-8.5 Lymph # 3.3 10 Normal 1.5-5.0 [place] # 1.1 10 High 0.0-0.8 Eos # 0.1 10 Normal 0.0-0.5 Baso # 0.1 10 Normal 0.0-0.2 Laboratory test finding 05/25/2020 [facility] Erythrocyte Sedimentation Rate 41 mm/hr High 0-20 Antinuclear Antibodies 05/25/2020 [facility] Antinuclear Antibodies Direct Negative Normal Negative 2 1 Units are mL/min/1.73 m2 Chronic Kidney Disease Staging per NKF: Stage I & II GFR >=60 Normal to Mildly Decreased Stage III GFR 30-59 Moderately Decreased Stage IV GFR 15-29 Severely Decreased Stage V GFR <15 Very Little GFR Left ESRD GFR <15 on ARCHIVAL RECORDS CLERK 2 Performed at: RN - [facility] [address] [id number] Block Paver: Maricruz Sarkar MD, Phone: [phone] Procedures Date Code Description Status 06/15/2020 85964 EEG Recording Awake & Asleep Com pleted 06/15/2020 55037 EEG Recording Awake & Asleep Com pleted 05/25/2020 48037 MRI Brain W/O Contrast Completed 05/25/2020 38577 MRI Brain W/O Contrast Completed 05/25/2020 63802 Magnetic Resonance Angiography N jen W/O Contrast Materials Completed 05/25/2020 21632 Magnetic Resonance Angiography N jen W/O Contrast Materials Completed 05/25/2020 64694 Magnetic Resonance Angiogtaphy H ead W/O Contrast Material(S) Completed 05/25/2020 72353 Magnetic Resonance Angiogtaphy H ead W/O Contrast Material(S) Completed Medical Devices Description No Information Available Encounters Type Date Location Provider Dx Diagnosis Office Visit 04/30/2020 2:00p Main office - [place] Risa Vinson M.D. R42 Dizziness and giddiness [...] Risa Vinson M.D. at Main office - [place] Functional Status Description No Information Available Mental Status Description No Information Available Referrals Refer to Reason for Referral Status Appt Date Karen Freeman M.D. QUESTIONABLE PAPILLEDEMA AND VISION LOSS Cr eated [facility] [address] [place] [address] [phone] Created Created
--- OUTSIDE RECORDS SUMMARY | 2020-08-29 09:07 | CCD | Continuity of Care Document ---
Author Author Jailyn GARCIA Organization Unknown Address [address] [place] [address] Phone [phone] Care Team Providers Care Contract Coordinator Name Role Phone Juliette Live P.A.-C. AUTM [phone] Larry Nava M.D. AUTM [phone] Problems Description No Information Available Social History [...] H/L Range Note Comprehensive Metabolic Profil 05/25/2020 [facility] Glucose, Fasting 81 mg/dL Normal [...] 0.8 Low 1.2-2.2 Laboratory test finding 05/25/2020 [facility] Thyroid Stimulating Hormone 1.620 uIU/ML Normal 0.358-3.740 Total 25(Oh) Vitamin D 26.9 NG/ML Low 30.0-100.0 Rheumatoid Factor Quant < 10.0 IU/mL Normal <15.0 CBC With Differential 05/25/2020 [facility] White Blood Count 16.9 10 [...] 36.0-66.0 Lymph % 19.7 % Low 24.0-44.0 [place] % 6.3 % High 0.0-5.0 Eos % 0.5 % Normal 0.0-3.0 Baso % 0.3 % Normal 0.0-1.0 Immature Granulocyte % 0.9 % Normal 0-3.0 Nucleated Red Blood Cell % 0.0 % Normal 0-0 Neutrophils # 12.2 10 High 1.5-8.5 Lymph # 3.3 10 Normal 1.5-5.0 [place] # 1.1 10 High 0.0-0.8 Eos # 0.1 10 Normal 0.0-0.5 Baso # 0.1 10 Normal 0.0-0.2 Laboratory test finding 05/25/2020 [facility] Erythrocyte Sedimentation Rate 41 mm/hr High 0-20 Antinuclear Antibodies 05/25/2020 [facility] Antinuclear Antibodies Direct Negative Normal Negative 2 1 Units are mL/min/1.73 m2 Chronic Kidney Disease Staging per NKF: Stage I & II GFR >=60 Normal to Mildly Decreased Stage III GFR 30-59 Moderately Decreased Stage IV GFR 15-29 Severely Decreased Stage V GFR <15 Very Little GFR Left ESRD GFR <15 on FLAMER AFTER LASTING 2 Performed at: RN - [facility] [address] [id number] Electromyographic Technician: Maricruz Sarkar MD, Phone: [phone] Procedures Date Code Description Status 05/25/2020 01488 MRI Brain W/O Contrast Completed 05/25/2020 98590 MRI Brain W/O Contrast Completed 05/25/2020 41940 Magnetic Resonance Angiography N jen W/O Contrast Materials Completed 05/25/2020 28184 Magnetic Resonance Angiography N jen W/O Contrast Materials Completed 05/25/2020 23497 Magnetic Resonance Angiogtaphy H ead W/O Contrast Material(S) Completed 05/25/2020 21803 Magnetic Resonance Angiogtaphy H ead W/O Contrast Material(S) Completed Medical Devices Description No Information Available Encounters Type Date Location Provider Dx Diagnosis Office Visit 04/30/2020 2:00p Main office - [place] Risa Vinson M.D. R42 Dizziness and giddiness R41.3 Other amnesia G43.809 Other migraine, not intracta ble, without status migrainosus R56.9 Unspecified convulsions H53.8 Other visual disturbances Assessments Date Code Description Provider 05/25/2020 G43.809 Other migraine, not intractable, without [...] Risa Vinson M.D. at Main office - [place] Functional Status Description No Information Available Mental Status Description No Information Available Referrals Refer to Reason for Referral Status Appt Date Karen Freeman M.D. QUESTIONABLE PAPILLEDEMA AND VISION LOSS Cr eated [facility] [address] [place] [address] [phone] Created Created
--- OUTSIDE RECORDS SUMMARY | 2020-08-29 09:08 | CCD ---
Author Author [facility] Organization [facility] Address Unknown Phone Unavailable Care Team Providers Care Product Delivery Specialist Name Role Phone Berny [phone] MD Chele BRIONES Unavailable Unavailable Berny [phone] MD Chele BRIONES Unavailable Unavailable Berny [phone] MD Chele BRIONES Unavailable Unavailable PAIGE DE LA CRUZ Unavailable Unavailable Andie MURRAY MD Unavailable Unavailable Andie MURRAY MD Unavailable Unavailable Andie MURRAY MD Unavailable Unavailable Andie MURRAY MD Unavailable Unavailable Andie MURRAY MD Unavailable Unavailable AGGIE CRUZ MD Unavailable Unavailable AGGIE CRUZ MD Unavailable Unavailable AGGIE CRUZ MD Unavailable Unavailable AGGIE CRUZ MD Unavailable Unavailable AGGIE CRUZ MD Unavailable Unavailable AGGIE CRUZ MD Unavailable Unavailable AGGIE CRUZ MD Unavailable Unavailable ANTHONY, AGGIE MD Unavailable Unavailable ANTHONY, AGGIE MD Unavailable Unavailable ANTHONY, AGGIE MD Unavailable Unavailable ANTHONY, AGGIE MD Unavailable Unavailable ANTHONY, AGGIE MD Unavailable Unavailable ANTHONY, AGGIE MD Unavailable Unavailable ANTHONY, AGGIE MD Unavailable Unavailable ANTHONY, AGGIE MD Unavailable Unavailable ANTHONY, AGGIE MD Unavailable Unavailable ANTHONY, AGGIE MD Unavailable Unavailable ANTHONY, AGGIE MD Unavailable Unavailable ANTHONY, AGGIE MD Unavailable Unavailable ANTHONY, AGGIE MD Unavailable Unavailable ANTHONY, AGGIE MD Unavailable Unavailable ANTHONY, AGGIE MD Unavailable Unavailable ANTHONY, AGGIE MD Unavailable Unavailable ANTHONY, AGGIE MD Unavailable Unavailable ANTHONY, AGGIE MD Unavailable Unavailable ANTHONY, AGGIE MD Unavailable Unavailable ANTHONY, AGGIE MD Unavailable Unavailable ANTHONY, AGGIE MD Unavailable Unavailable ANTHONY, AGGIE MD Unavailable Unavailable ANTHONY, AGGIE MD Unavailable Unavailable ANTHONY, AGGIE MD Unavailable Unavailable ANTHONY, AGGIE MD Unavailable Unavailable ANTHONY, AGGIE MD Unavailable Unavailable ANTHONY, AGGIE MD Unavailable Unavailable ANTHONY, AGGIE MD Unavailable Unavailable ANTHONY, AGGIE MD Unavailable Unavailable ANTHONY, AGGIE MD Unavailable Unavailable ANTHONY, AGGIE MD Unavailable Unavailable ANTHONY, AGGIE MD Unavailable Unavailable ANTHONY, AGGIE MD Unavailable Unavailable Checo Schneider MD Unavailable Unavailable Checo Schneider MD Unavailable Unavailable Checo Schneider MD Unavailable Unavailable Checo Schneider MD Unavailable Unavailable Checo Schneider MD Unavailable Unavailable Checo Schneider MD Unavailable Unavailable Checo Schneider MD Unavailable Unavailable Checo Schneider MD Unavailable Unavailable Checo Schneider MD Unavailable Unavailable Checo Schneider MD Unavailable Unavailable Checo Schneider MD Unavailable Unavailable Checo Schneider MD Unavailable Unavailable Checo Schneider MD Unavailable Unavailable TRACIE RAMOS MD Unavailable Unavailable TRACIE RAMOS MD Unavailable Unavailable TRACIE RAMOS MD Unavailable Unavailable TRACIE RAMOS MD Unavailable Unavailable TRACIE RAMOS MD Unavailable Unavailable TRACIE RAMOS MD Unavailable Unavailable TRACIE RAMOS MD Unavailable Unavailable TRACIE RAMOS MD Unavailable Unavailable TRACIE RAMOS MD Unavailable Unavailable TRACIE RAMOS MD Unavailable Unavailable TRACIE RAMOS MD Unavailable Unavailable TRACIE RAMOS MD Unavailable Unavailable TRACIE RAMOS MD Unavailable Unavailable TRACIE RAMOS MD Unavailable Unavailable TRACIE RAMOS MD Unavailable Unavailable TRACIE RAMOS MD Unavailable Unavailable RAMOS, TRACIE MD Unavailable Unavailable RAMOS, TRACIE MD Unavailable Unavailable RAMOS, TRACIE MD Unavailable Unavailable RAMOS, TRACIE MD Unavailable Unavailable RAMOS, TRACIE MD Unavailable Unavailable RAMOS, TRACIE MD Unavailable Unavailable RAMOS, TRACIE MD Unavailable Unavailable RAMOS, TRACIE MD Unavailable Unavailable RAMOS, TRACIE MD Unavailable Unavailable RAMOS, TRACIE MD Unavailable Unavailable RAMOS, TRACIE MD Unavailable Unavailable RAMOS, TRACIE MD Unavailable Unavailable RAMOS, TRACIE MD Unavailable Unavailable RAMOS, TRACIE MD Unavailable Unavailable RAMOS, TRACIE MD Unavailable Unavailable RAMOS, TRACIE MD Unavailable Unavailable RAMOS, TRACIE MD Unavailable Unavailable RAMOS, TRACIE MD Unavailable Unavailable RAMOS, TRACIE MD Unavailable Unavailable RAMOS, TRACIE MD Unavailable Unavailable RAMOS, TRACIE MD Unavailable Unavailable RAMOS, TRACIE MD Unavailable Unavailable RAMOS, TRACIE MD Unavailable Unavailable RAMOS, TRACIE MD Unavailable Unavailable RAMOS, TRACIE MD Unavailable Unavailable RAMOS, TRACIE MD Unavailable Unavailable RAMOS, TRACIE MD Unavailable Unavailable RAMOS, TRACIE MD Unavailable Unavailable RAMOS, TRACIE MD Unavailable Unavailable RAMOS, TRACIE MD Unavailable Unavailable RAMOS, TRACIE MD Unavailable Unavailable RAMOS, TRACIE MD Unavailable Unavailable RAMOS, TRACIE MD Unavailable Unavailable RAMOS, TRACIE MD Unavailable Unavailable RAMOS, TRACIE MD Unavailable Unavailable RAMOS, TRACIE MD Unavailable Unavailable RAMOS, TRACIE MD Unavailable Unavailable RAMOS, TRACIE MD Unavailable Unavailable RAMOS, TRACIE MD Unavailable Unavailable RAMOS, TRACIE MD Unavailable Unavailable RAMOS, TRACIE MD Unavailable Unavailable RAMOS, TRACIE MD Unavailable Unavailable RAMOS, TRACIE MD Unavailable Unavailable RAMOS, TRACIE MD Unavailable Unavailable RAMOS, TRACIE MD Unavailable Unavailable RAMOS, TRACIE MD Unavailable Unavailable RAMOS, TRACIE MD Unavailable Unavailable RAMOS, TRACIE MD Unavailable Unavailable RAMOS, TRACIE MD Unavailable Unavailable RAMOS, TRACIE MD Unavailable Unavailable RAMOS, TRACIE MD Unavailable Unavailable RAMOS, TRACIE MD Unavailable Unavailable RAMOS, TRACIE MD Unavailable Unavailable Live, M Juliette PA-C Unavailable Unavailable Live, M Juliette PA-C Unavailable Unavailable Live, M Juliette PA-C Unavailable Unavailable Live, M Juliette PA-C Unavailable Unavailable Live, M Juliette PA-C Unavailable Unavailable Live, M Juliette PA-C Unavailable Unavailable Live, M Juliette PA-C Unavailable Unavailable Live, M Juliette PA-C Unavailable Unavailable Live, M Juliette PA-C Unavailable Unavailable Live, M Juliette PA-C Unavailable Unavailable Live, M Juliette PA-C Unavailable Unavailable Live, M Juliette PA-C Unavailable Unavailable Live, M Juliette PA-C Unavailable Unavailable Live, M Juliette PA-C Unavailable Unavailable Live, M Juliette PA-C Unavailable Unavailable Live, M Juliette PA-C Unavailable Unavailable Live, M Juliette PA-C Unavailable Unavailable Live, M Juliette PA-C Unavailable Unavailable Live, M Juliette PA-C Unavailable Unavailable Live, M Juliette PA-C Unavailable Unavailable Live, M Juliette PA-C Unavailable Unavailable Live, M Juliette PA-C Unavailable Unavailable Live, M Juliette PA-C Unavailable Unavailable Live, M Juliette PA-C Unavailable Unavailable Live, M Juliette PA-C Unavailable Unavailable Live, M Juliette PA-C Unavailable Unavailable Live, M Juliette PA-C Unavailable Unavailable Live, M Juliette PA-C Unavailable Unavailable Live, M Juliette PA-C Unavailable Unavailable Live, M Juliette PA-C Unavailable Unavailable Live, M Juliette PA-C Unavailable Unavailable Live, M Juliette PA-C Unavailable Unavailable Live, M Juliette PA-C Unavailable Unavailable Kyle Sam MD Unavailable Unavailable TRACIE RAMOS MD Unavailable Unavailable TRACIE RAMOS MD Unavailable Unavailable TRACIE RAMOS MD Unavailable Unavailable TRACIE RAMOS MD Unavailable Unavailable TRACIE RAMOS MD Unavailable Unavailable TRACIE RAMOS MD Unavailable Unavailable TRACIE RAMOS MD Unavailable Unavailable TRACIE RAMOS MD Unavailable Unavailable TRACIE RAMOS MD Unavailable Unavailable TRACIE RAMOS MD Unavailable Unavailable TRACIE RAMOS MD Unavailable Unavailable TRACIE RAMOS MD Unavailable Unavailable TRACIE RAMOS MD Unavailable Unavailable TRACIE RAMOS MD Unavailable Unavailable TRACIE RAMOS MD Unavailable Unavailable TRACIE RAMOS MD Unavailable Unavailable TRACIE RAMOS MD Unavailable Unavailable TRACIE RAMOS MD Unavailable Unavailable TRACIE RAMOS MD Unavailable Unavailable TRACIE RAMOS MD Unavailable Unavailable TRACIE RAMOS MD Unavailable Unavailable TRACIE RAMOS MD Unavailable Unavailable TRACIE RAMOS MD Unavailable Unavailable TRACIE RAMOS MD Unavailable Unavailable TRACIE RAMOS MD Unavailable Unavailable RAMOSTRACIE COHEN MD Unavailable Unavailable RAMOS, TRACIE MD Unavailable Unavailable RAMOS, TRACIE MD Unavailable Unavailable RAMOS, TRACIE MD Unavailable Unavailable RAMOS, TRACIE MD Unavailable Unavailable RAMOS, TRACIE MD Unavailable Unavailable RAMOS, TRACIE MD Unavailable Unavailable RAMOS, TRACIE MD Unavailable Unavailable RAMOS, TRACIE MD Unavailable Unavailable RAMOS, TRACIE MD Unavailable Unavailable RAMOS, TRACIE MD Unavailable Unavailable RAMOS, TRACIE MD Unavailable Unavailable RAMOS, TRACIE MD Unavailable Unavailable RAMOS, TRACIE MD Unavailable Unavailable RAMOS, TRACIE MD Unavailable Unavailable RAMOS, TRACIE MD Unavailable Unavailable RAMOS, TRACIE MD Unavailable Unavailable RAMOS, TRACIE MD Unavailable Unavailable RAMOS, TRACIE MD Unavailable Unavailable RAMOS, TRACIE MD Unavailable Unavailable RAMOS, TRACIE MD Unavailable Unavailable RAMOS, TRACIE MD Unavailable Unavailable RAMOS, TRACIE MD Unavailable Unavailable RAMOS, TRACIE MD Unavailable Unavailable RAMOS, TRACIE MD Unavailable Unavailable RAMOS, TRACIE MD Unavailable Unavailable RAMOS, TRACIE MD Unavailable Unavailable RAMOS, TRACIE MD Unavailable Unavailable RAMOS, TRACIE MD Unavailable Unavailable RAMOS, TRACIE MD Unavailable Unavailable RAMOS, TRACIE MD Unavailable Unavailable RAMOS, TRACIE MD Unavailable Unavailable RAMOS, TRACIE MD Unavailable Unavailable RAMOS, TRACIE MD Unavailable Unavailable RAMOS, TRACIE MD Unavailable Unavailable RAMOS, TRACIE MD Unavailable Unavailable RAMOS, TRACIE MD Unavailable Unavailable RAMOS, TRACIE MD Unavailable Unavailable RAMOS, TRACIE MD Unavailable Unavailable RAMOS, TRACIE MD Unavailable Unavailable RAMOS, TRACIE MD Unavailable Unavailable RAMOS, TRACIE MD Unavailable Unavailable RAMOS, TRACIE MD Unavailable Unavailable RAMOS, TRACIE MD Unavailable Unavailable Kunnumpurath, F Nubia MD Unavailable Unavailable Kunnumpurath, F Nubia MD Unavailable Unavailable Kunnumpurath, F Nubia MD Unavailable Unavailable Kunnumpurath, F Nubia MD Unavailable Unavailable Kunnumpurath, F Nubia MD Unavailable Unavailable Kunnumpurath, F Nubia MD Unavailable Unavailable Kunnumpurath, F Nubia MD Unavailable Unavailable Kunnumpurath, F Nubia MD Unavailable Unavailable Kunnumpurath, F Nubia MD Unavailable Unavailable Kunnumpurath, F Nubia MD Unavailable Unavailable Kunnumpurath, F Nubia MD Unavailable Unavailable Kunnumpurath, F Nubia MD Unavailable Unavailable Kunnumpurath, F Nubia MD Unavailable Unavailable Kunnumpurath, F Nubia MD Unavailable Unavailable Kunnumpurath, F Nubia MD Unavailable Unavailable Kunnumpurath, F Nubia MD Unavailable Unavailable Kunnumpurath, F Nubia MD Unavailable Unavailable Kunnumpurath, F Nubia MD Unavailable Unavailable Kunnumpurath, F Nubia MD Unavailable Unavailable Kunnumpurath, F Nubia MD Unavailable Unavailable Kunnumpurath, F Nubia MD Unavailable Unavailable Kunnumpurath, F Nubia MD Unavailable Unavailable Kunnumpurath, F Nubia MD Unavailable Unavailable Kunnumpurath, F Nubia MD Unavailable Unavailable Kunnumpurath, F Nubia MD Unavailable Unavailable Kunnumpurath, F Nubia MD Unavailable Unavailable Kunnumpurath, F Nubia MD Unavailable Unavailable Kunnumpurath, F Nubia MD Unavailable Unavailable Kunnumpurath, F Nubia MD Unavailable Unavailable Kunnumpurath, F Nubia MD Unavailable Unavailable Kunnumpurath, F Nubia MD Unavailable Unavailable Kunnumpurath, F Nubia MD Unavailable Unavailable Kunnumpurath, F Nubia MD Unavailable Unavailable Kunnumpurath, F Nubia MD Unavailable Unavailable Kunnumpurath, F Nubia MD Unavailable Unavailable Kunnumpurath, F Nubia MD Unavailable Unavailable Kunnumpurath, F Nubia MD Unavailable Unavailable Kunnumpurath, F Nubia MD Unavailable Unavailable Kunnumpurath, F Nubia MD Unavailable Unavailable NOT, SPECIFIED Unavailable Unavailable Re-disclosure Warning The records that you are about to access may contain information from federally-assisted alcohol or drug abuse programs. If such information is present, then the following federally mandated warning applies: This information has been disclosed to you from records protected by federal confidentiality rules (42 CFR part 2). The federal rules prohibit you from making any further disclosure of this information unless further disclosure is expressly permitted by the written consent of the person to whom it pertains or as otherwise permitted by 42 CFR part 2. A general authorization for the release of medical or other information is NOT sufficient for this purpose. The Federal rules restrict any use of the information to criminally investigate or prosecute any alcohol or drug abuse patient.The records that you are about to access may contain highly sensitive health information, the redisclosure of which is protected by Article 27-F of the [facility] Public Health law. If you continue you may have access to information: Regarding HIV / AIDS; Provided by facilities licensed or operated by the [facility] Office of Mental Health; or Provided by the [facility] Office for People With Developmental Disabilities. If such information is present, then the following [facility] mandated warning applies: This information has been disclosed to you from confidential records which are protected by state law. State law prohibits you from making any further disclosure of this information without the specific written consent of the person to whom it pertains, or as otherwise permitted by law. Any unauthorized further disclosure in violation of state law may result in a fine or prison sentence or both. A general authorization for the release of medical or other information is NOT sufficient authorization for further disc losure. Allergies and Adverse Reactions Type Description Substance Reaction Status Data Source(s ) No Known Environmental Allergies No Known Environmental [facility] No Known Food Allergies No Known Food Allergies [facility] Drug allergy [facility] Drug allergy amoxicillin Amoxicillin [facility] Family History Family Member Name Family Member Gender Family Member Status Date o f Status Description Data Source(s) Unknown Female Problem MEDENT ([facility]) Unknown Unknown Problem MEDENT ([facility]) Unknown Unknown Problem MEDENT ([facility]) Encounters Encounter Providers Location Date Indications Data Source(s ) ( ESTOB) [facility] [address] [place] [address] 07/24/2020 12:00:00 AM EST eCW1 ([facility]) ( ESTOB) [facility] [address] [place] [address] 07/10/2020 12:00:00 AM EST eCW1 ([facility]) Outpatient [address] [facility] [address] 07/09/2020 12:00:00 AM EST eCW1 ([facility]) Outpatient Attender: AGGIE CRUZ MD Main office - [facility] 06/30/2020 08:30:00 AM EST MEDENT ([facility] JOSIAH gonzales) Outpatient Attender: AGGIE CRUZ MD Main office - [facility] 06/22/2020 03:30:00 PM EST MEDENT ([facility] ( ESTOB) [facility] [address] [place] [address] 06/11/2020 12:00:00 AM EST eCW1 ([facility]) ( ESTOB) [facility] [address] [place] [address] 05/14/2020 12:00:00 AM EST eCW1 ([facility]) Outpatient Attender: AGGIE CRUZ MD Main office - [facility] 04/30/2020 02:00:00 PM EDT MEDENT ([facility]) Outpatient Attender: Juliette AGUIRRECConsultant: TRACIE MCCULLOUGH MD 04/24/2020 07:43:00 AM EDT - 04/24/2020 07:43:00 AM EDT [facility] ( ESTOB) [facility] [address] [place] [address] 04/16/2020 12:00:00 AM EDT eCW1 ([facility]) Outpatient Attender: SIMBA DE LAC RUZConsultant: TRACIE RAMOS MD 11/29/2019 07:32:00 AM EDT - 11/29/2019 08:32:00 AM EDT [facility] ital Outpatient Attender: Nubia Aguayo MDAttender: Juliette AGUIRRECConsultant: TRACIE RAMOS MD 09/26/2019 09:10:00 AM EDT - 09/26/2019 09:10:00 AM EDT [facility] Outpatient 09/09/2019 02:32:00 PM EDT [facility] Outpatient 09/02/2019 03:37:00 PM EST [facility] Outpatient Attender: Sheng Schneider MDReferrer: TRACIE RAMOS MD 07/30/2019 10:13:00 AM EST - 07/30/2019 10:21:00 AM EST [facility] Outpatient Attender: [id number] Chele Arrieta MD 07/19/2019 09:29:00 AM EST - 07/19/2019 02:25:00 PM EST K64.4/EXC ANAL RECTAL SKIN TAG [id number] [facility] K64.4/EXC ANAL RECTAL SKIN TAG [id number] Patient discharged. Outpatient Attender: Kyle Womackar MDReferrer: TRACIE Arnold 07/10/2019 09:39:00 AM EST - 07/10/2019 10:39:00 AM EST [facility] Outpatient Attender: Juliette PAVON-CConsultant: TRACIE MCCULLOUGH MD 07/20/2018 09:13:21 AM EST [facility] Outpatient Attender: SHEYLA MURRAY MDConsultant: SPECIFIE D NOT 04/05/2018 03:18:12 PM EDT [facility] Medications Medication Brand Name Start Date Product Form Dose Route Admi nistrative Instructions Pharmacy Instructions Status Indications Reaction Description Data Source(s) Magnesium Oxide 400 MG Oral Tablet Magnesium Oxide 04/30/2020 12:00 :00 AM EDT active MEDENT ([facility] ) Riboflavin 04/30/2020 12:00:00 AM EDT ORAL active MEDENT ([facility] ) Riboflavin 400 MG Oral Tablet Riboflavin 04/24/2020 12:00:00 AM EDT ORAL active MEDENT ([facility]) Magnesium 04/24/2020 12:00:00 AM EDT ORAL active MEDENT ([facility]) Phentermine Hydrochloride 15 MG Oral Capsule Phentermine HCL 09/27/2019 12:00:00 AM EDT ORAL active MEDENT ([facility]) valacyclovir 500 MG Oral Tablet Valacyclovir HCL 07/25/2019 12:00:00 AM EST ORAL completed MEDENT ([facility]) Metronidazole 7.5 MG/ML Topical Cream [MetroCream] Metronida zole 07/16/2019 11:37:20 AM EST 1 APPLIC active [facility] Desogestrel-Ethinyl Estradiol 07/16/2019 11:34:51 AM EST 1 TAB active [facility] Metronidazole 7.5 MG/ML Topical Cream Metronidazole 12/27/2018 12:14:37 PM EDT 1 APPLIC completed [facility] Insurance Providers Payer name Policy type / Coverage type Policy ID Covered democrat ID Covered democrat's relationship to sierra Policy Sierra Plan Information [facility] COMMUNITY PLAN [facility] [id number] UNHC COMMUNITY PLAN MCDHMO [id number] SP [id number] [facility](MCAID) O [id number] S [id number] [place] [id number] SP [id number] UNHC COMMUNITY PLAN MCDHMO [id number] SP [id number] [facility] COMMUNTY PLAN [id number] 18 [id number] [facility] [id number] SP [id number] [facility] [place] [id number] SP [id number] [facility] [place] [id number] SP [id number] UNHC COMMUNITY PLAN MCDHMO [id number] SP [id number] [facility] [id number] SP [id number] MEDICAID M [id number] [facility] O [id number] S [id number] [facility] COMMERCIAL [id number] 18 [id number] [place] [id number] MEDICAID [id number] SP [id number] [facility] [id number] SP [id number] [facility] O [id number] S [id number] [facility] EMPIRE PLAN [id number] 18 [id number] [facility] EMILY [id number] SP [id number] MEDICAID [id number] SP [id number] [facility] [place] [id number] SP [id number] [facility] -O/P [id number] 18 [id number] ANSI-Commercial [id number] [facility] [id number] 18 [id number] [facility] [place] Plan Health Maintenance Organization (HMO) [id number] Self [id number] [facility] [place] Plan Health Maintenance Organization (HMO) [id number] Self [id number] [facility] HEA [id number] S [id number] ANSI-Commercial [id number] [employer] O [id number] S [id number] [facility] [place] Plan Health Maintenance Organization (HMO) [id number] Self [id number] UN[employer] COMMUNITY PLAN XIX [id number] 18 [id number] UNHC COMMUNITY PLAN [id number] 18 [id number] UNHC EMPIRE -O/P [id number] 18 [id number] [facility] CONRAIL [id number] SP [id number] UNHC COMMUNITY PLAN XIX [id number] 18 [id number] [facility] [id number] SP [id number] UNHC COMMUNITY PLAN XIX [id number] 18 [id number] [facility] [place] Plan Health Maintenance Organization (HMO) [id number] Self [id number] [facility](MCAID) O [id number] S [id number] [facility] Health Maintenance Organization (HMO) [id number] Self [id number] [facility] [id number] 18 [id number] DEPT OF LABOR [id number] SP [id number] Unhc Community Plan Medicaid Self UNHC AMERICHOICE XIX HMO [id number] 18 [id number] [facility] Health Maintenance Organization (HMO) Self [facility] MEDICAID [id number] Isamar [id number] [employer]UE [employer]OSS BLUE SHIELD-PHYSICIAN [id number] 18 [id number] BLUE CROSS BLUE SHIELD-O/P [id number] 18 [id number] [facility](MCAID) P UNAVAILABLE S UNAVAILABLE MEDICAID - CLINIC [id number] BLUE CROSS GR PLAN [id number] SP [id number] [employer] P [id number] S [id number] HMO BLUE [id number] SP [id number] BLUE CROSS BLUE SHIELD-CLINIC [id number] 18 [id number] Problems, Conditions, and Diagnoses Code Display Name Description Problem Type Effective Dates Data Source(s) G43.909 [id number] Migraine without sta tus migrainosus, not intractable, unspecified migraine type Problem 07/23/2020 12:00:00 AM EST eCW1 ([facility]) L71.0 [id number] Perioral dermatitis Problem 07/09/2020 12:00 :00 AM EST eCW1 ([facility]) [id number] Headache Headache Problem 06/22/2020 12:00:00 AM EBONY SERRANO (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 Female infert ility of tubal origin Diagnosis 11/29/2019 07:32:00 AM [facility] N803 Endometriosis of pelvic peritoneum Endometriosis of pelvic peritoneum Diagnosis 11/29/2019 07:32:00 AM [facility] R945 Abnormal results of liver function studi es Abnormal results of liver function studies Diagnosis 09/26/2019 09:10:00 AM [facility] 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 ) ELECTROENCEPHALOGRAM W/REC AWAKE&ASLEEP 06/15/2020 12: 00:00 AM EST MEDENT ([facility]) Magnetic Resonance Angiogtaphy Head W/O Contrast Material(S) 05/25/2020 12:00:00 AM EST [facility] ([facility] Magnetic Resonance Angiogtaphy Head W/O Contrast Material(S) 05/25/2020 12:00:00 AM EST MEDENT ([facility] Magnetic Resonance Angiography Neck W/O Contrast Materials 05/25/2020 12:00:00 AM EST [facility] [facility] Magnetic Resonance Angiography Neck W/O Contrast Materials 05/25/2020 12:00:00 AM EST [facility] ([facility] MRI BRAIN BRAIN STEM W/O CONTRAST MATERIAL 05/25/2020 12:00:00 AM EST [facility] ([facility], ) MRI BRAIN BRAIN STEM W/O CONTRAST MATERIAL 05/25/2020 12:00:00 AM EST [facility] ([facility], ) Results ID Date Data Source [id number] 06/23/2020 12:00:00 AM EST [facility] Name Value Range Interpretation Code Description Data Laura rce(s) Supporting Document(s) SARS coronavirus 2 RNA [facility] This lab was ordered by [facility] and rep orted by [facility]. ID Date Data Source [facility] OBS FOLLOW UP OR REPEAT 06/01/2020 12:00:00 AM EST eCW1 ([facility]) Name Value Range Interpretation Code Description Data Laura rce(s) Supporting Document(s) [facility] OBS FOLLOW UP OR REPEAT e CW1 ([facility]) ID Date Data Source [id number] 05/25/2020 02:34:00 PM EST [facility] ([facility], ) Name Value Range Interpretation Code Description Data Laura rce(s) Supporting Document(s) Antinuclear Antibodies Direct Laboratory test result [facility] ([facility], ) Performed at: RN - [facility] [place] [id number] [employer]: Maricruz Sarkar MD, Phone: [phone] ID Date Data Source [id number] 05/25/2020 02:34:00 PM EST [facility] ([facility], ) Name Value Range Interpretation Code Description Data Laura rce(s) Supporting Document(s) Erythrocyte sedimentation rate by 2H Westergren method 41 mm/hr 0-2 0 [facility] ([facility], ) ID Date Data Source [id number] 05/25/2020 02:34:00 PM EST [facility] ([facility], ) Name Value Range Interpretation Code Description Data Laura rce(s) Supporting Document(s) White Blood Count 16.9 10 4.0-10.0 [facility] ([facility], ) Red Blood Count 4.44 10 4.00-5.40 [facility] ([facility], ) Hemoglobin 13.2 g/dL 12.0-15.5 [facility] ([facility], ) Mean Corpuscular Volume 92.6 fl 80.0-96.0 M EDENT ([facility]) Hematocrit 41.1 % 36.0-47.0 [facility] ([facility]) Mean Corpuscular HGB Conc 32.1 g/dL 32.0-36.5 [facility] ([facility]) Red Cell Distribution Width 13.4 % 11.5-14.5 [facility] ([facility]) Mean Corpuscular Hemoglobin 29.7 pg 27.0-33.0 [facility] ([facility]) Neutrophils % 72.3 % 36.0-66.0 [facility] ([facility]) Platelet Count, Automated 250 10 150-450 [facility] ([facility]) Nolan % 6.3 % 0.0-5.0 [facility] ([facility]) Lymph % 19.7 % 24.0-44.0 [facility] ([facility]) Eos % 0.5 % 0.0-3.0 [facility] ([facility]) Baso % 0.3 % 0.0-1.0 [facility] ([facility]) Immature Granulocyte % 0.9 % 0-3.0 [facility] ([facility]) Neutrophils # 12.2 10 1.5-8.5 [facility] ([facility]) Nucleated Red Blood Cell % 0.0 % 0-0 MED E[facility] ([facility]) Eos # 0.1 10 0.0-0.5 [facility] ([facility]) Lymph # 3.3 10 1.5-5.0 [facility] ([facility]) Nolan # 1.1 10 0.0-0.8 [facility] ([facility]) Baso # 0.1 10 0.0-0.2 [facility] ([facility]) ID Date Data Source [id number] 05/25/2020 02:34:00 PM EST [facility] ([facility]) Name Value Range Interpretation Code Description Data Laura rce(s) Supporting Document(s) Thyrotropin [Units/volume] in Serum or Plasma 1.620 uIU/ML 0.358-3.74 0 [facility] ([facility]) Calcidiol [Mass/volume] in Serum or Plasma 26.9 ng/mL 30.0-100.0 [facility] ([facility]) Rheumatoid factor [Units/volume] in Serum or Plasma Laboratory test result [facility] ([facility]) ID Date Data Source [id number] 05/25/2020 02:34:00 PM EST [facility] ([facility]) Name Value Range Interpretation Code Description Data Laura rce(s) Supporting Document(s) Glucose, Fasting 81 mg/dL 70-100 [facility] ([facility]) Creatinine For GFR 0.63 mg/dL 0.55-1.30 [facility] ([facility]) Glomerular Filtration Rate Laboratory test result [facility] ([facility]) <content>Units are mL/min/1.73 m2</content>
<content></content>
<content>Chronic Kidney Disease Staging per NKF:</content>
<content></content>
<content>Stage I & II GFR >=60 Normal to Mildly Decreased</content>
<content>Stage III GFR 30- 59 Moderately Decreased</content>
<content>Stage IV GFR 15-29 Severely Decreased</content>
<content>Stage V GFR <15 Very Little GFR Left</content>
<content>ESRD GFR <15 on PROGRAM THERAPIST</content>
<content></content> Blood Urea Nitrogen 8 mg/dL 7-18 [facility] ([facility], ) Chloride Level 105 meq/L 98-107 [facility] ([facility]) Potassium Serum 4.2 meq/L 3.5-5.1 [facility] ([facility]) Sodium Level 137 meq/L 136-145 [facility] ([facility]) Carbon Dioxide Level 25 meq/L 21-32 [facility] ([facility]) Anion Gap 7 meq/L 8-16 [facility] ([facility]) Alt/SGPT 12 U/L 12-78 [facility] ([facility]) Calcium Level 9.4 mg/dL 8.5-10.1 [facility] ([facility]) Ast/Sgot 12 U/L 7-37 [facility] ([facility], ) Bilirubin,Total 0.2 mg/dL 0.2-1.0 [facility] ([facility], ) Alkaline Phosphatase 142 U/L 45-117 [facility] ([facility], ) Total Protein 6.6 GM/DL 6.4-8.2 [facility] ([facility], ) Albumin 3.0 GM/DL 3.2-5.2 [facility] ([facility], ) Albumin/Globulin Ratio 0.8 1.2-2.2 [facility] ([facility], ) ID Date Data Source [id number] 04/04/2020 07:34:00 PM EDT [facility] ([facility]) Name Value Range Interpretation Code Description Data Laura rce(s) Supporting Document(s) PH,Urine 6.0 units 5.0-9.0 Normal (applies to non-numeric resul ts) [facility] ([facility]) Appearance, Urine Laboratory test result Normal (applies to non-numeric results) [facility] ([facility]) Color, Urine Laboratory test result Normal (applies to non -numeric results) [facility]) Glucose, Urine (Ua) Auto Laboratory test result Normal (applies to non-numeric results) [facility] ([facility]) Specific [place] Urine Auto 1.011 1.002-1.035 Norm al (applies to non-numeric results) [facility] ([facility]) Protein, Urine Auto Laboratory test result Stacie l (applies to non-numeric results) [facility] ([facility]) Bilirubin, Urine Auto Laboratory test result Nor mal (applies to non-numeric results) [facility] ([facility]) Urobilinogen, Urine Auto 0.2 mg/dL 0.0-2.0 Normal (applies to non-numeric results) [facility] ([facility]) Ketone, Urine Auto Laboratory test result Normal (applies to non-numeric results) [facility] ([facility]) Nitrite, Urine Auto Laboratory test result Stacie l (applies to non-numeric results) [facility] ([facility]) Leukocyte Esterase, Urine Auto Laboratory test result Normal (applies to non- numeric results) [facility] ([facility]) Blood, Urine Blood Laboratory test result Normal (applies to non-numeric results) [facility] ([facility]) WBC, Urine Auto 2 /HPF 0-3 Normal (applies to non-numeric results) [facility] ([facility]) Bacteria, Urine Auto Laboratory test result Above high nor mal [facility] ([facility]) RBC, Urine Auto 2 /HPF 0-3 Normal (applies to non-numeric results) [facility] ([facility]) Squamous Epithelial Cell Ur AU 5 /HPF 0-6 N ormal (applies to non-numeric results) [facility] ([facility]) Hyaline Cast, Urine Auto 0 /LPF 0-1 Normal (applies to non -numeric results) [facility] ([facility]) ID Date Data Source [id number] 03/12/2020 03:36:00 PM EDT [facility] ([facility]) Name Value Range Interpretation Code Description Data Laura rce(s) Supporting Document(s) Glucose, Fasting 74 mg/dL 70-100 Normal (applies to non-numeric results) [facility] ([facility]) Blood Urea Nitrogen 8 mg/dL 7-18 Normal (applies to non-nume diane results) [facility] ([facility]) Creatinine For GFR 0.69 mg/dL 0.55-1.30 Normal (applies to non -numeric results) [facility] ([facility]) Glomerular Filtration Rate Laboratory test result Normal (applies to non- numeric results) [facility] ([facility]) <content>Units are mL/min/1.73 m2</content>
<content></content>
<content>Chronic Kidney Disease Staging per NKF:</content>
<content></content>
<content>Stage I & II GFR >=60 Normal to Mildly Decreased</content>
<content>Stage III GFR 30- 59 Moderately Decreased</content>
<content>Stage IV GFR 15-29 Severely Decreased</content>
<content>Stage V GFR <15 Very Little GFR Left</content>
<content>ESRD GFR <15 on PROGRAM THERAPIST</content>
<content></content> Sodium Level 139 meq/L 136-145 Normal (applies to non-numeric res ults) [facility] ([facility]) Carbon Dioxide Level 23 meq/L 21-32 Normal (applies to non-num alex results) [facility] ([facility]) Potassium Serum 3.9 meq/L 3.5-5.1 Normal (applies to non-numeric results) [facility] ([facility]) Chloride Level 108 meq/L 98-107 Above high normal [facility] ([facility]) Anion Gap 8 meq/L 8-16 Normal (applies to non-numeric resul ts) [facility] ([facility]) Calcium Level 8.8 mg/dL 8.5-10.1 Normal (applies to non-numeric re sults) [facility] ([facility]) ID Date Data Source [id number] 03/12/2020 03:36:00 PM EDT [facility] ([facility]) Name Value Range Interpretation Code Description Data Laura rce(s) Supporting Document(s) Ast/Sgot 17 U/L 7-37 Normal (applies to non-numeric resul ts) [facility] ([facility]) Alt/SGPT 15 U/L 12-78 Normal (applies to non-numeric resul ts) [facility] ([facility]) Bilirubin,Direct Laboratory test result 0.0-0.2 Normal ( applies to non-numeric results) [facility] Bilirubin,Total 0.2 mg/dL 0.2-1.0 Normal (applies to non-numeric results) [facility] ([facility]) Alkaline Phosphatase 110 U/L 45-117 Normal (applies to non-num alex results) [facility] ([facility]) Albumin/Globulin Ratio 0.9 1.2-2.2 Below low normal [facility] Albumin 3.1 GM/DL 3.2-5.2 Below low normal [facility] Total Protein 6.7 GM/DL 6.4-8.2 Normal (applies to non-numeric re sults) [facility] ([facility]) ID Date Data Source [id number] 03/12/2020 03:36:00 PM EDT [facility] ([facility]) Name Value Range Interpretation Code Description Data Laura rce(s) Supporting Document(s) White Blood Count 15.3 10 4.0-10.0 Above high normal [facility] ([facility]) Red Blood Count 4.84 10 4.00-5.40 Normal (applies to non-numeric results) [facility] ([facility]) Mean Corpuscular Hemoglobin 30.6 pg 27.0-33.0 Norm al (applies to non-numeric results) [facility] ([facility]) Mean Corpuscular Volume 91.3 fl 80.0-96.0 Normal ( applies to non-numeric results) [facility] ([facility]) Hematocrit 44.2 % 36.0-47.0 Normal (applies to non-numeric resul ts) [facility] ([facility]) Hemoglobin 14.8 g/dL 12.0-15.5 Normal (applies to non-numeric resul ts) [facility] ([facility]) Mean Corpuscular HGB Conc 33.5 g/dL 32.0-36.5 Normal (applies to non-numeric results) [facility] ([facility]) Red Cell Distribution Width 13.1 % 11.5-14.5 Norm al (applies to non-numeric results) [facility] ([facility]) Platelet Count, Automated 272 10 150-450 Normal (applies to non-numeric results) [facility] ([facility]) Neutrophils % 75.5 % 36.0-66.0 Above high normal MEDE NT ([facility]) Nolan % 5.4 % 0.0-5.0 Above high normal [facility] ([facility]) Lymph % 18.3 % 24.0-44.0 Below low normal [facility] ( [facility]) Baso % 0.3 % 0.0-1.0 Normal (applies to non-numeric resul ts) [facility] ([facility]) Immature Granulocyte % 0.3 % 0-3.0 Normal (applies to non-n umeric results) [facility] ([facility]) Eos % 0.2 % 0.0-3.0 Normal (applies to non-numeric resul ts) [facility] ([facility]) Nucleated Red Blood Cell % 0.0 % 0-0 Normal (applies to n on-numeric results) [facility] ([facility]) Neutrophils # 11.6 10 1.5-8.5 Above high normal [facility]E NT ([facility]) Lymph # 2.8 10 1.5-5.0 Normal (applies to non-numeric resul ts) [facility] ([facility]) Nolan # 0.8 10 0.0-0.8 Normal (applies to non-numeric resul ts) [facility] ([facility]) Baso # 0.1 10 0.0-0.2 Normal (applies to non-numeric resul ts) [facility] ([facility]) Eos # 0.0 10 0.0-0.5 Normal (applies to non-numeric resul ts) [facility] ([facility]) ID Date Data Source [id number] 02/05/2020 12:00:00 AM EDT [facility] Elodia Cat MD Patient Name: DONAL LOCKHART [facility] Date of : 1990AMY band[place] [id number] Date of Exam: 02/05/2020PH#: Fax: [phone] EXAM: US OB < 14 WKS, SINGLE FETUSCLINICAL INFORMATION: Supervision of normal . 2, Para 1LMP: UnknownGA by today's ultrasound: 8 weeks 4 days, JOHN: 1CRL: 2.0 = 8 weeks 4 days, >95% Heart Rate: 179 BPMType of Gestation: singletonAmniotic fluid volume: NormalYolk Sac IS seen. Pole IS seen. heart motion IS seen.Right ovary Not visualizedLeft ovary: 2.7 x 2.2 x 2.2 cm.Accredited by the [employer] in Obstetrical Ultrasound.PEREZ Roblero/Chadwick garg for referring GINNA LOCKHART to our office. Electronically Signed - CONCHITA MORSE DO 02/06/20 14:31 Name Value Range Interpretation Code Description Data Laura rce(s) Supporting Document(s) ID Date Data Source [id number] 11/29/2019 02:48:00 PM EDT [facility] [address] [place] [address] PHONE: [phone] FAX: [phone] Name .................. : RICHY CHACKO Acct Number.................. : [id number] ROOM. ................. : MR Number ................... : [id number] Stay type ............. : O/P Discharge Date......... ... : 11/29/19 Admit Date ......... : 11/29/19 Admit Phys .................... : ELODIA COTTRELL Date of ....... : 1990 Family Phys ................... : RICHARD HARD Phone .................. : [phone] Age ................................ : 29 Film# .................. .:[id number] Sex ................................. : F Unsigned transcriptions are preliminary reports and do not represent a medical or legal document TRANSVAGINAL(NON OB) [id number] COMPLETE:11/29/19 09:39 [facility] [id number] (REASON FOR OBS: FOLICCULAR STUDY PELVIC ULTRASONOGRAPHY, 11/29/19: FINDINGS: Transvaginal imaging of the pelvis was performed. Uterus measures 7.1 x 5.7 x 4.2 cm. Endometrium is within normal limits with AP dimeter of 3.2 mm. Focal myoma is not seen. Right ovarian dimensions are 1.6 x 1.5 x 0.7 cm. There is a single follicle right ovary that measures less than 1 cm. Left ovary measures 4.5 x 3.0 x 1.5 cm. A 1.3 x 1.0 cm follicle is seen in the left ovary. There are also three follicles of less than 1 cm in the left ovary. IMPRESSION: Bilateral ovarian follicles are noted as above. Unremarkable evaluation of the uterus. No suspicious mass or acute pathology seen. Electronically Reviewed and Signed By Александр Jaramillo MD , 11/29/19 14:48, KGG Transcribe Initials: [facility], Transcribe Date: 11/29/19 09:42, Dictation Date: Copy for: ELODIA CAT Copy for: 710 MED REC Page 1 of 1 Name Value Range Interpretation Code Description Data Laura rce(s) Supporting Document(s) ID Date Data Source [id number] 11/29/2019 08:37:00 AM EDT [facility] ([facility]) Name Value Range Interpretation Code Description Data Laura rce(s) Supporting Document(s) Laboratory test finding (navigational concept) 3.4 pg/mL [facility] ([facility]) <content>Female:</content>
<content> Follicular: 30.0 - 100.0</content>
<content>Luteal: 70.0 - 300.0</content>
<content>Postmenopausal: < 15.0</content>
<content>This test was developed and its performance characteristics</content>
<content>determined by [facility]. It has not been cleared by the Food and</content>
<content>Drug Administration.</content>
<content>Methodology: Liquid chromatography tandem mass spectrometry(LC/MS/MS)</content>
<content></content> Choriogonadotropin.beta subunit [Moles/volume] in Serum or Plasm a 0.5 mIU/mL [facility] ([facility]) Interpretation: Less than 5 mU/mL: Negative 6-10 mU/mL: Borderline (suggest repeat i n 48 hours) >10: Positive Approx HCG range (mU/mL) Weeks post LMP 5.4-708 mU/mL 3-4 Weeks 217-93260 mU/mL 5-6 Weeks 4059-352622 mU/mL 7-8 Weeks 12995-408604 mU/mL 9-10 Weeks 44296-45468 mU/mL 12-14 Weeks 45687-06250 mU/mL 15-16 Weeks 8240-57350 mU/mL 17-18 Weeks Progesterone [Mass/volume] in Serum or Plasma 0.1 ng/mL [facility] ([facility]) Follicular phase 0.1 - 0.9 Luteal phase 1.8 - 23.9 Ovulation phase 0.1 - 12.0 First trimester 11.0 - 44.3 Second trimester 25.4 - 83.3 Third trimester 58.7 - 214.0 Postmenopausal 0.0 - 0.1 ID Date Data Source [id number] 12/04/2019 11:14:00 AM EDT [facility] Name Value Range Interpretation Code Description Data Laura rce(s) Supporting Document(s) Estradiol (E2) [Mass/volume] in Serum or Plasma by Hig h sensitivity method 3.4 pg/mL [facility] Female: Follicular: 30.0 - 100.0 Luteal: 70.0 - 300.0 Postmenopausal: < 15.0This test was developed and its performance characteristicsdetermined by [facility]. It has not been cleared by the Food andDrug Administration.Methodology: Liquid chromatography tandem mass spectrometry(LC/MS/MS) ID Date Data Source [id number] 11/30/2019 02:44:00 PM EDT [facility] Name Value Range Interpretation Code Description Data Laura rce(s) Supporting Document(s) Progesterone [Mass/volume] in Serum or Plasma 0.1 ng/mL [facility] Foll icular phase 0.1 - 0.9 Luteal phase 1.8 - 23.9 Ovulation phase 0.1 - 12.0 First trimester 11.0 - 44.3 Second trimester 25.4 - 83.3 Third trimester 58.7 - 214.0 Postmenopausal 0.0 - 0.1 ID Date Data Source [id number] 11/29/2019 09:16:00 AM EDT [facility] Name Value Range Interpretation Code Description Data Laura rce(s) Supporting Document(s) Choriogonadotropin.intact [Units/volume] in Serum or Plasma 0.5 mIU/m L [facility] Interpr etation: Less than 5 mU/mL: Negative 6-10 mU/mL: Borderline (suggest repeat in 48 hours) >10: Positive Approx HCG range (mU/mL) Weeks post LMP 5.4-708 mU/mL 3-4 Weeks 217-44786 mU/mL 5-6 Weeks 4059-069620 mU/mL 7-8 Weeks 69418-374703 mU/mL 9-10 Weeks 50294-46695 mU/mL 12-14 Weeks 75010-86467 mU/mL 15-16 Weeks 8240- 30872 mU/mL 17-18 Weeks ID Date Data Source [id number] 09/26/2019 09:41:00 AM EDT [facility] ([facility]) Name Value Range Interpretation Code Description Data Laura rce(s) Supporting Document(s) Hemoglobin A1c/Hemoglobin.total in Blood 5.3 % 4.4-6.1 [facility] ([facility]) Is patient fasting? N ID Date Data Source [id number] 09/26/2019 09:41:00 AM EDT [facility] ([facility]) Name Value Range Interpretation Code Description Data Laura rce(s) Supporting Document(s) Chloride 104 meq/L 98-107 [facility] ([facility]) Is patient fasting? N Potassium 4.2 meq/L 3.6-5.0 [facility] ([facility]) Is patient fasting? N Comprehensive [place] Laboratory test result [facility] ([facility]) Is patient fasting? N Sodium 143 meq/L 134-153 [facility] ([facility]) Is patient fasting? N Glucose 102 mg/dL 65-110 [facility] ([facility]) Is patient fasting? N Co2 27 meq/L 22-30 [facility] ([facility]) Is patient fasting? N BUN/Creat 14 8-27 [facility] ([facility]) Is patient fasting? N BUN 11 mg/dL 7-21 [facility] ([facility]) Is patient fasting? N Creatinine 0.8 mg/dL 0.7-1.5 [facility] ([facility]) Is patient fasting? N Total Protein 7.1 g/dL 6.3-8.2 [facility] ([facility]) Is patient fasting? N Albumin 4.3 g/dL 3.9-5.0 [facility]) Is patient fasting? N Globulin 2.8 GM/DL 2.4-3.2 [facility] ([facility]) Is patient fasting? N A/G Ratio 1.5 0.8-2.0 [facility] ([facility]) Is patient fasting? N Total Bili Laboratory test result 0.2-1.3 NE [facility] ([facility]) Is patient fasting? N Calcium 9.4 mg/dL 8.4-10.2 [facility] ([facility]) Is patient fasting? N Alkaline Phos 120 U/L 38-126 [facility] ([facility]) Is patient fasting? N Sgot/Ast 19 U/L 5-40 [facility] ([facility]) Is patient fasting? N SGPT/Alt 14 U/L 7-56 [facility] ([facility]) Is patient fasting? N Age 28 yrs [facility] ([facility]) Is patient fasting? N Anion Gap 12.0 mmol/L 8.0-16.0 [facility] ([facility]) Is patient fasting? N Non-Aa GFR Laboratory test result [facility] ([facility]) Is patient fasting? N Afr Amer GFR Laboratory test result [facility] ([facility]) Is patient fasting? N ID Date Data Source [id number] 09/26/2019 09:41:00 AM EDT [facility] ([facility]) Name Value Range Interpretation Code Description Data Laura rce(s) Supporting Document(s) CBC No Diff Laboratory test result M [facility] ([facility]) Is patient fasting? N WBC 11.6 10^3/uL 4.2-11.0 Above high normal [facility] T ([facility]) Is patient fasting? N Hematocrit 43.5 % 37.0-47.0 [facility] ([facility]) Is patient fasting? N MCV 88.2 fL 81.0-101 [facility] ([facility]) Is patient fasting? N RBC 4.93 10^6/uL 4.20-5.40 [facility] ([facility]) Is patient fasting? N Hemoglobin 14.1 g/dL 12.0-16.0 [facility] ([facility]) Is patient fasting? N RDW 14.2 % 11.5-14.5 [facility] ([facility]) Is patient fasting? N MCH 28.6 pg 27.0-34.0 [facility] ([facility]) Is patient fasting? N MCHC 32.4 g/dL 31.0-36.0 [facility] ([facility]) Is patient fasting? N Platelets 357 10^3/uL 150-450 [facility] ([facility]) Is patient fasting? N MPV 11.1 fL 7.4-10.4 Above high normal [facility] ([facility]) Is patient fasting? N ID Date Data Source [id number] 09/26/2019 04:13:00 PM EDT [facility] Name Value Range Interpretation Code Description Data Laura rce(s) Supporting Document(s) CBC NO DIFF [facility] ital COMPLETE BLOOD COUNT Leukocytes [#/volume] in Blood by Automated count 11.6 10^3/uL 4.2 - 11.0 H [facility] Erythrocytes [#/volume] in Blood by Automated count 4.93 10^6/uL 4. 20 - 5.40 [facility] Hemoglobin [Mass/volume] in Blood 14.1 g/dL 12.0 - 16.0 [facility] Hematocrit [Volume Fraction] of Blood by Automated count 43.5 % 3 7.0 - 47.0 [facility] Erythrocyte mean corpuscular volume [Entitic volume] by Auto mated count 88.2 fL 81.0 - 101 [facility] Erythrocyte mean corpuscular hemoglobin [Entitic mass] by Automated count 28.6 pg 27.0 - 34.0 [facility] Erythrocyte mean corpuscular hemoglobin concentration [Mass/volume] by Automated count 32.4 g/dL 31.0 - 36.0 [facility] Erythrocyte distribution width [Ratio] by Automated count 14.2 % 11.5 - 14.5 [facility] Platelets [#/volume] in Blood by Automated count 357 10^3/uL 150 - 45 0 [facility] Platelet mean volume [Entitic volume] in Blood by Automated count 11.1 fL 7.4 - 10.4 H [facility] ID Date Data Source [id number] 09/26/2019 03:26:00 PM EDT [facility] Name Value Range Interpretation Code Description Data Laura e(s) Supporting Document(s) Hemoglobin A1c/Hemoglobin.total in Blood 5.3 % 4.4 - 6.1 [facility] {A1]{HB] ID Date Data Source [id number] 09/26/2019 03:26:00 PM EDT [facility] Name Value Range Interpretation Code Description Data Laura rce(s) Supporting Document(s) COMPREHENSIVE METABOLIC PANEL [facility] COMPREHENSIVE METABOLIC PANEL Sodium [Moles/volume] in Serum or Plasma 143 mEq/L 134 - 153 [facility] Potassium [Moles/volume] in Serum or Plasma 4.2 mEq/L 3.6 - 5.0 [facility] Chloride [Moles/volume] in Serum or Plasma 104 mEq/L 98 - 107 [facility] Carbon dioxide, total [Moles/volume] in Serum or Plasma 27 MEQ/L 22 - 30 [facility] Glucose [Mass/volume] in Serum or Plasma 102 MG/DL 65 - 110 [facility] BUN 11 MG/DL 7 - 21 [facility] Creatinine [Mass/volume] in Serum or Plasma 0.8 MG/DL 0.7 - 1.5 [facility] BUN/CREAT 14 8 - 27 [facility] Protein [Mass/volume] in Serum or Plasma 7.1 G/DL 6.3 - 8.2 [facility] Albumin [Mass/volume] in Serum or Plasma 4.3 G/DL 3.9 - 5.0 [facility] Globulin [Mass/volume] in Serum by calculation 2.8 GM/DL 2.4 - 3.2 [facility] A/G RATIO 1.5 0.8 - 2.0 [facility] Calcium [Mass/volume] in Serum or Plasma 9.4 MG/DL 8.4 - 10.2 [facility] Bilirubin.total [Mass/volume] in Serum or Plasma <0.7 MG/DL 0.2 - 1.3 [facility] Alkaline phosphatase [Enzymatic activity/volume] in Serum or Plasma 120 U/L 38 - 126 [facility] Aspartate aminotransferase [Enzymatic activity/volume] in Serum or Plasma 19 U/L 5 - 40 [facility] Alanine aminotransferase [Enzymatic activity/volume] in Seru m or Plasma 14 U/L 7 - 56 [facility] Anion gap 3 in Serum or Plasma 12.0 mmol/L 8.0 - 16.0 [facility] AGE [address] [facility] al NON-AA GFR >60 mL/min [facility] ital AFR AMER GFR >60 mL/min [facility] Male GFR In terprentation 20-49 yrs >60 mL/min Normal 50-59 yrs >56 mL/min Normal 60-69 yrs >49 mL/min Normal 70-79yrs >42 mL/min Normal 80 and above >35 mL/min Normal Female GFR Interpretation 20-39 yrs >60 mL/min Normal 40-49 yrs >58 mL/min Normal 50-59 yrs >51 mL/min Normal 60-69 yrs >45 mL/min Normal 70-79 yrs >39 mL/min Normal 80 and above >32 mL/min Normal ID Date Data Source [id number] 09/06/2019 07:13:00 AM EST [facility] ([facility]) Name Value Range Interpretation Code Description Data Laura rce(s) Supporting Document(s) Progesterone [Mass/volume] in Serum or Plasma 0.43 ng/mL Normal (applies to non-numeric results) [facility] ([facility]) <content>Normal Ranges (ng/ml)</content>
<content>Females :</content>
<content>FOLLICULAR PHASE 0.15- 1.40</content>
<content>LUTEAL PHASE 3.34-25.56</content>
<content>MID-LUTEAL PHASE 4.44- 28.03</content>
<content>POST MENOPAUSAL <0.73</content>
<content></content>
<content> Females :</content>
<content>1st TRIMESTER 11.22- 90.00</content>
<content>2nd TRIMESTER 25.55- 89.40</content>
<content>3rd TRIMESTER 48.40-422.50</content>
<content></content> ID Date Data Source [id number] 08/30/2019 07:32:00 AM EST [facility] ([facility]) Name Value Range Interpretation Code Description Data Laura rce(s) Supporting Document(s) Progesterone [Mass/volume] in Serum or Plasma 0.30 ng/mL Normal (applies to non-numeric results) [facility] ([facility]) <content>Normal Ranges (ng/ml)</content>
<content>Females :</content>
<content>FOLLICULAR PHASE 0.15- 1.40</content>
<content>LUTEAL PHASE 3.34-25.56</content>
<content>MID-LUTEAL PHASE 4.44- 28.03</content>
<content>POST MENOPAUSAL <0.73</content>
<content></content>
<content> Females :</content>
<content>1st TRIMESTER 11.22- 90.00</content>
<content>2nd TRIMESTER 25.55- 89.40</content>
<content>3rd TRIMESTER 48.40-422.50</content>
<content></content> ID Date Data Source [id number] 07/30/2019 10:13:00 AM [facility] Name: GINNA LOCKHART : 1990 Age: 28 MR#: [id number] Admit Date: 07/30/19 Provider: Sheng Schneider MD Room #: Consulting Provider: Dictation Date: 07/30/19 ProgressNote Intake Vital Signs 07/30/19 10:14 Current Height 5 ft 5 in Current Weight 210 lb Weight Measurement Method Stated by Patient BMI 34.9 BP 120/74 Blood Pressure Location Lt brachial Position Sitting Pulse 86 Pulse Strength Normal Pulse Source Pulse Oximeter Temp 97.8 F Temp Source Oral Pulse Oximetry (%) 98 Oxygen Delivery Method room air Intake Visit Reasons: Post-Op follow-Up Nurse Note: post op excision external anal skin tag 07/19/2019 Iron Caster Required: No Is patient in pain?: No Allergies amoxicillin Allergy (Mild, Verified 07/19/19 11:18) PFSH Surgical History Hx laparoscopic cholecystectomy (Acute) Family History Father No problems noted. Mother No problems noted. Social History Does the Patient have a Healthcare Proxy: No Does Patient have a DNR?: No Does Patient have a Living Will?: No current occupational status: employed Hx Recent Travel (where): No alcohol intake: current alcohol intake frequency: holidays/special occasions only HPI Additional HPI HPI Details: 28-year-old female who is 11 days out of excision of an ex total anal tag. Pathology showed an anal tag. She has no complaints. She has minimal discomfort. Exam GI Other: Examination the wilmar-anal area shows her excision site to be healing well. There is no sign of infection. Assessment Plan Assessment Plan (1) Encounter for Postoperative Care: Code(s): Z48.89 - Encounter for other specified surgical aftercare Additional Comments Additional Comments: Satisfactory healing following excision of an external anal skin tag. She is healing nicely. I have discharged her from follow-up. I encouraged her to contact the clinic with any problems or questions. Dictated by: <Electronically signed by Sheng Schneider MD> Sheng Schneider MD 07/30/19 1023 Sheng Schneider MD SIGNATURE DA Report Cosigners: D: [email or web address] 07/30/19 1013 T: DEDRICK 07/30/19 1013 CC: Name Value Range Interpretation Code Description Data Laura rce(s) Supporting Document(s) ID Date Data Source [id number] 07/19/2019 12:43:00 PM [facility] Name: GINNA LOCKHART : 1990 Age: 28 MR#: [id number] Admit Date: 07/19/19 Provider: Chele Arrieta MD Room #: Consulting Provider: Dictation Date: 07/19/19 Operative Note Operative Report Date of Service Date of service:: 07/19/19 Operative Report Surgeon: Chele Arrieta MD MPH Anesthesiologist(s): Zeferino May MD Anesthesia Type: General Pre-Operative Diagnosis: External anal skin tage Post-Operative Diagnosis: same as pre-op Procedure Procedure: External anal skin tag removal Complications: No Post-Operative Condition: Good EBL(ml):: 0 Operative Treatments Specimens: Specimens removed: (External anal skin tag) Drains and Output Drain: No Drain Operative Narrative Narrative: The patient was identified in the holding area and brought to the operating room where she was placed in the supine position. After induction of general anesthesia, she was prepped and draped in the usual sterile fashion. She was placed in Navid Prone Knife Position. There was a small external skin tag at right anterior location. It was grasped with a hemorrhoidal clamp. A 3-0 chrom icstitch was placed at the apex. The Bovie electrocautery was then used to elliptically excise the external skin tag. Further bleeding was controlled with Bovie electrocautery. The mucosa/subcutaneous tissue was closed with a running chromic stitch. Xeroform wrapped around 4x4s was then placed in theanus as a dressing. The patient was then awakened and taken to the recovery room in good condition. There were no operative complications. Dictated by: <Electronically signed by Chele Arrieta > Chele Arrieta 07/19/19 1252 Chele Arrieta SIGNATURE DA Report Cosigners: D: DAISY 07/19/19 1243 T: DAISY 07/19/19 1243 CC: Name Value Range Interpretation Code Description Data Laura rce(s) Supporting Document(s) ID Date Data Source [id number] 07/25/2019 02:44:00 PM EST [facility] PATH SPEC #:: [id number] Name Value Range Interpretation Code Description Data Laura rce(s) Supporting Document(s) Pathology studies (set) See scanned report [facility] ID Date Data Source [id number] 07/19/2019 09:43:00 AM [facility] @ DID THE CONTROL BAND APPEAR? YES.@ DID THE BACKGROUND CLEAR? YES. Name Value Range Interpretation Code Description Data Laura rce(s) Supporting Document(s) Choriogonadotropin [Moles/volume] in Urine NEGATIVE NEGATIVE [facility] @Reenter manual test result: NEGATIVE.@Rosa Jackson at 07/19/19 0943. ID Date Data Source [id number] 07/19/2019 09:32:00 AM EST [facility] ([facility]) Name Value Range Interpretation Code Description Data Laura rce(s) Supporting Document(s) Choriogonadotropin [Moles/volume] in Urine Laboratory test result [facility] ([facility]) K64.4/EXC ANAL RECTAL SKIN TAG [id number] ID Date Data Source [id number] 07/10/2019 09:51:00 AM [facility] Name: GINNA LOCKHART : 1990 Age: 28 MR#: [id number] Admit Date: 07/10/19 Provider: Kyle Sam MD Room #: Consulting Provider: Dictation Date: 07/10/19 ProgressNote Intake Vital Signs 07/10/19 09:51 Current Height 5 ft 4 in Current Weight 210 lb BMI 36.0 BP 126/70 Blood Pressure Location Lt brachial Position Sitting Pulse 86 Pulse Strength Normal Pulse Source Pulse Oximeter Temp 98.2 F Temp Source Oral Pulse Oximetry (%) 97 Oxygen Delivery Method room air Intake Visit Reasons: Skin complaints Nurse Note: pt states growth near rectum Iron Caster Required: No Is patient in pain?: No Allergies amoxicillin Allergy (Mild, Unverified 05/04/15 08:21) PFSH Surgical History Hx laparoscopic cholecystectomy (Acute) Family History Father No problems noted. Mother No problems noted. Social History Does the Patient have a Healthcare Proxy: No Does Patient have a DNR?: No Does Patient have a Living Will?: No current occupational status: employed alcohol intake: current alcohol intake frequency: holidays/special occasions only HPI Additional HPI HPI Details: This 28-year-old female presents to me because of the sensation of a growth on her anorectal region, that was more prominent at the time of her recent , that is now gotten smaller but persists. The patient states that there is no history of ano-rectal discomfort, bleeding, itching, or burning. However, on wiping, she can feel this so-called growth from her analregion. Surgical referral was made for further evaluation Review of Systems Const All systems reviewed are unremarkable except as noted in HPI and below Reports headache(s) Eyes Reports system reviewed and no additional complaints, except as documented and Reports requires corrective lenses ENT Reports system reviewed and no additional complaints, except as documented and Reports headache(s) GI Reports system reviewed and no additional complaints, except as documented Reports system reviewed and no additional complaints, except as documented Musc Reports system reviewed and no additional complaints, except as documented Skin/Breast Reports system reviewed and no additional complaints, except as documented Neuro Reports system reviewed and no additional complaints, except as documented and Reports headache(s) Endo Reports system reviewed and no additional complaints, except as documented Steve/Lymph Reports system reviewed and no additional complaints, except as documented Aller/Immun Reports system reviewed and no additional complaints, except as documented Exam Const General: cooperative, comfortable, no acute distress and well developed Nutritional Appearance: obese Other: At the 2:00 region of the anal region, there is a large anal skin tag. There is no ulceration, fissure, hemorrhoid, or other abnormality. HENMT Head: normal to inspection, normocephalic and atraumatic Face and sinus: normal facial exam Mo uth: oral mucosae normal, tongue normal, oropharynx normal and moist mucous membranes Throat: posterior oropharynx normal Eyes Eyelids: eyelids normal Conjunctivae: conjunctivae normal Sclera: sclerae normal Cornea: corneas normal EOM: EOM intact bilaterally Neck Neck: normal visual inspection, full ROM, no lymphadenopathy, trachea midline and supple Neck mass: No Chest Chest: normal inspection of the chest Resp Effort Inspection: normal respiratory effort Auscultation: clear to auscultation bilaterally Cardio Rate: regular rate Rhythm: regular rhythm Heart Sounds: S1 normal and S2 normal GI Palpation: soft, no hepatosplenomegaly, no hernias, no masses, no pulsatile masses, nontender and ascites Rectal Exam - Female: Yes other (Anal skin tag at the 2 o'clock position of the rectum.) Skin Lesions: no lesions Rashes: no rashes Trauma: no lacerations or abrasions Wounds: no wounds Neuro General: alert, awake and oriented x3 Extrem General: normal to inspection and full ROM Psych Appearance: grossly normal and well kempt Mental Status: mental status grossly normal Speech and Movement: speech and movement normal Mood: congruent mood Affect: normal affect Attitude: cooperative Thought Process: normal Thought Content: normal Insight: insight good Judgment: judgment good Assessment Plan Assessment Plan (1) Skin abnormalities: Code(s): L98.9 - Disorder of the skin and subcutaneous tissue, unspecified Additional Comments Additional Comments: Impression: Anal skin tag Plan: Excision of anal skin tag as requested by the patient. Dictated by: <Electronically signed by Kyle Sam MD> Kyle Sam MD 07/10/19 1209 Kyle Sam MD SIGNATURE DA Report Cosigners: D: [email or web address] 07/10/19950 T: DEDRICK 07/10/19950 CC: Name Value Range Interpretation Code Description Data Laura rce(s) Supporting Document(s) Procedure Social History Code Duration Value Status Description Data Source(s ) Smoking 08/06/2020 12:00:00 AM EST Never Smoker completed Never S moker eCW1 ([facility]) Smoking 07/09/2020 12:00:00 AM EST Never Smoker completed Never S moker eCW1 ([facility]) Smoking 07/09/2020 12:00:00 AM EST Never Smoker completed Never S moker eCW1 ([facility]) Smoking 06/08/2020 12:00:00 AM EST Never Smoker completed Never S moker eCW1 ([facility]) Smoking 05/11/2020 12:00:00 AM EST Never Smoker completed Never S moker eCW1 ([facility]) Smoking 05/11/2020 12:00:00 AM EST Never Smoker completed Never S moker eCW1 ([facility]) 07/16/2019 11:37:00 AM EST Never smoker completed Never s [facility] Smoking 07/16/2019 11:37:00 AM EST Never smoker completed Never s [facility] 07/16/2019 11:37:00 AM EST Never smoker completed Never s [facility] Smoking 07/16/2019 11:37:00 AM EST Never smoker completed Never s [facility] 07/10/2019 09:56:29 AM EST Never smoker completed Never s [facility] 07/10/2019 09:56:29 AM EST Never smoker completed Never s [facility] 07/10/2019 09:56:29 AM EST Never smoker completed Never s [facility] Smoking 07/10/2019 09:56:00 AM EST Never smoker completed Never [facility] Vital Signs ID Date Data Source UNK Name Value Range Interpretation Code Description Data Source(s) Diastolic blood pressure 76 mm[Hg] 76 mm[Hg] eCW1 ([facility]) Systolic blood pressure 126 mm[Hg] 126 mm[Hg] e CW1 ([facility]) Body mass index (BMI) [Ratio] 37.309 kg/m2 37.3 09 kg/m2 eCW1 ([facility]) Body height 65 [in_i] 65 [in_i] eCW1 ([facility]) Body weight 224.2 [lb_av] 224.2 [lb_av] eCW1 ([facility]) Diastolic blood pressure 86 mm[Hg] 86 mm[Hg] eCW1 ([facility]) Systolic blood pressure 132 mm[Hg] 132 mm[Hg] e CW1 ([facility]) Body mass index (BMI) [Ratio] 37.276 kg/m2 37.2 76 kg/m2 eCW1 ([facility]) Body height 65 [in_i] 65 [in_i] eCW1 ([facility]) Body weight 224 [lb_av] 224 [lb_av] eCW1 ([facility]) Diastolic blood pressure 78 mm[Hg] 78 mm[Hg] eCW1 ([facility]) Systolic blood pressure 126 mm[Hg] 126 mm[Hg] e CW1 ([facility]) Body mass index (BMI) [Ratio] 37.27 kg/m2 37.27 kg/m2 eCW1 ([facility]) Body height 65 [in_i] 65 [in_i] eCW1 ([facility]) Body weight 224.0 [lb_av] 224.0 [lb_av] eCW1 ([facility]) Diastolic blood pressure 76 mm[Hg] 76 mm[Hg] eCW1 ([facility]) Systolic blood pressure 122 mm[Hg] 122 mm[Hg] e CW1 ([facility]) Body mass index (BMI) [Ratio] 37.542 kg/m2 37.5 42 kg/m2 eCW1 ([facility]) Body height 65 [in_i] 65 [in_i] eCW1 ([facility]) Body weight 102.33 kg 102.33 kg eCW1 ([facility]) Body weight 225.6 [lb_av] 225.6 [lb_av] eCW1 ([facility]) Diastolic blood pressure 74 mm[Hg] 74 mm[Hg] eCW1 ([facility]) Systolic blood pressure 124 mm[Hg] 124 mm[Hg] e CW1 ([facility]) Body mass index (BMI) [Ratio] 36.876 kg/m2 36.8 76 kg/m2 W1 ([facility]) Body height 65 [in_i] 65 [in_i] eCW1 ([facility]) Body weight 221.6 [lb_av] 221.6 [lb_av] eCW1 ([facility]) Body surface area Derived from formula 2.06 m2 2.06 m2 [facility] ([facility]) Body mass index (BMI) [Ratio] 36.7 kg/m2 36.7 k g/m2 [facility] ([facility]) Body height 65 [in_i] 65 [in_i] [facility] ([facility]) 5'5" Body weight 100.019 kg 100.019 kg [facility] ([facility]) Body weight 220.50 [lb_av] 220.50 [lb_av] MED[facility] T ([facility]) Oxygen saturation in Arterial blood by Pulse oximetry 99 % 99 % [facility] ([facility]) Respiratory rate 16 /min 16 /min [facility] ( [facility]) Body temperature 98.4 [degF] 98.4 [degF] [facility] ([facility]) Heart rate 97 /min 97 /min [facility] ([facility]) Diastolic blood pressure 80 mm[Hg] 80 mm[Hg] [facility] ([facility]) Systolic blood pressure 124 mm[Hg] 124 mm[Hg] M EDENT ([facility]) Diastolic blood pressure 76 mm[Hg] 76 mm[Hg] eCW1 ([facility]) Systolic blood pressure 126 mm[Hg] 126 mm[Hg] e CW1 ([facility]) Body mass index (BMI) [Ratio] 36.277 kg/m2 36.2 77 kg/m2 W1 ([facility]) Body height 65 [in_i] 65 [in_i] eCW1 ([facility]) Body weight 218 [lb_av] 218 [lb_av] eCW1 ([facility]) Body weight 106.369 kg 106.369 kg [facility] ([facility]) Body weight 234.50 [lb_av] 234.50 [lb_av] [facility] T ([facility]) Oxygen saturation in Arterial blood by Pulse oximetry 98 % 98 % [facility] ([facility]) Respiratory rate 16 /min 16 /min [facility] ( [facility]) Body temperature 97.4 [degF] 97.4 [degF] [facility] ([facility]) Heart rate 87 /min 87 /min [facility] ([facility]) Diastolic blood pressure 72 mm[Hg] 72 mm[Hg] [facility] ([facility]) Systolic blood pressure 110 mm[Hg] 110 mm[Hg] M [facility]ENT ([facility])
[2020-08-29] MEDS ORDERED: METR0.7533 TOP (09:29)
[2020-08-29] MEDS ORDERED: FLON1SPR NARES (09:29)
[2020-08-29] MEDS ORDERED: OMEP40CA97 PO (09:29)
[2020-08-29] MEDS ORDERED: LR 1,000 ML IV SCH (10:07)
[2020-08-29] MEDS ORDERED: LACTATED RINGER'S 1000 ML IV STA (10:07)
[2020-08-29] MEDS ORDERED: miSOPROStol 50MCG 1/2 TABLET PV ONE (10:30)
[2020-08-29] MEDS: CLINDAMYCIN 900 MG in IV 1 EA IV SCH ×2 (13:46→21:20)
[2020-08-29 13:58] LABS: HEMATOCRIT 39.7 % (36.0-47.0); HEMOGLOBIN 13.5 g/dl (12.0-15.5); MEAN CORPUSCULAR HEMOGLOBIN 30.8 pg (27.0-33.0); MEAN CORPUSCULAR VOLUME 90.6 fl (80.0-96.0); PLATELET COUNT, AUTOMATED 208 10^3/uL (150-450); RED BLOOD COUNT 4.38 10^6/uL (4.00-5.40); WHITE BLOOD COUNT 11.4 10^3/uL (4.0-10.0)
[2020-08-29] MEDS ORDERED: miSOPROStol 25MCG 1/4 TABLET PO SCH (14:30)
[2020-08-29] MEDS ORDERED: BUTORPHANOL 2 MG/ML INJ (J0595) IV PRN (15:35)
[2020-08-29] MEDS ORDERED: OXYTOCIN DRIP 30 UNITS in IV 1 EA IV SCH (15:35)
[2020-08-29] MEDS ORDERED: PROMETHAZINE INJ 25 MG/ML VIAL (J2550) IV PRN (15:35)
--- NOTE | 2020-08-29 15:35 | HPEPDOC ---
Obstetrical History & Physical General Date of Admission Aug 29, 2020 at 09:02 History of Present Illness Jailyn is a 29yo with SIUP at 38w0d by IVF dating presenting for scheduled IOL 08/04 GHTN diagnosed yesterday in the office. She had GHTN with prior and recently has been taking bp's at home which have reliably been mild range- in office on 08/21 was 140/82. No LOF, no vaginal bleeding, no regular/painful ctx. Good movement. 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 Past Medical History Past Obstetrical History : Past Obstetrical History: Multigravida (02/28/19 8lb6oz at 39wk iol GHTN M) Past Medical History Medical History endometriosis, edema of optic nerve previously diagnosed Surgical History: Diagnostic laparoscopy (endometriosis surgery, dx of Stage IV), Gallbladder, Tonsilectomy Family History Significant Family History: No pertinent family hx Social History Marital Status: Other (life partner) Family situation: Spouse/partner home Psychosocial History: No pertinent psych hx * Smoker: non-smoker Alcohol: Denies Drugs: denies Imunizations Tdap status: declined Allergies Coded Allergies: amoxicillin (Verified Allergy, Intermediate, HIVES, NAUSEA, 02/27/19) Medications Scheduled [] , 1 TAB PO DAILY Scheduled PRN Fluticasone Propionate (Flonase Allergy Relief) 9.9 Ml [place].susp, 1 SPRAY NARES QHSP PRN for CONGESTION Metronidazole (Metronidazole 0.75% Gel) 45 Gm Gel..gram., 1 APLCT TOP BIDP PRN for RASH/ITCHING Omeprazole (Omeprazole) 40 Mg Capsule.dr, 20 MG PO DAILYPRN PRN for INDIGESTION Physical Examination Physical Examination GENERAL: Alert and oriented times three. ABDOMEN: Gravid and non-tender to touch. FETUS: Is vertex (VTX) by sterile vaginal examination (SVE) EXTREMITIES: No edema of BLE Vital Signs/I&O Vital Signs Date Time Temp Pulse Resp B/P (MAP) Pulse Ox O2 Delivery O2 Flow Rate FiO2 08/29/20 14:54 73 98 Room Air 08/29/20 14:53 98.1 16 121/80 (94) Laboratory Data [facility] Laboratory Tests 2 08/29/20 09:11: Serology Scanned Report Hepatitis B Testing 08/29/20 10:20: Nucleated Red Blood Cells % (auto) 0.0 CBC/BMP Laboratory Tests 08/29/20 10:20 Pertinent Laboratoy Data Blood Type: A+ RBC Antibody Screen: Negative HIV: Negative Hepatitis B: Negative Hepatitis C: Negative Rapid Plasma Reagin: Nonreactive Rubella: Immune Chlamydia/Gonorrhea: Negative Group B Streptococcus: Positive Glucose Tolerance Test: 98 Anatomy Ultrasound Ultrasound Date: Apr 13, 2020 Placenta Location: Anterior Normal Anatomy: Yes Placenta Previa: No Other Ultrasounds GS at 36wk 38%ile Steroid Therapy Steroid Therapy: No Vaginal Examination Dilation: 1cm Effacement: 50% Station: -2 Cervical Consistency: Medium Cervical Position: Posterior Presentation: Cephalic presentation Assessment Heart Rate (FHR): 130 Variability: Moderate Accelerations: Positive Decelerations: None Tocometer Contractions: No Assessment/Plan Assessment Jailyn is a 29yo with SIUP at 38w0d by IVF dating presenting for scheduled IOL / TN with normal bp today. Vitals wnl, afebrile, benign exam. Cat I FHRT. SCE 1/50/-2, posterior, cephalic. Cervical you bulb placed with 40cc NS and 50mcg cytotec PV. Plan Admit and orient. Guest Services Assistant and consent. Diet: regular for lunch then clear liquids Group B Streptococcus (GBS) positive and has allergy (hives) to amoxicillin. GBS report states sensitive to clindamycin, so 900mg IV clinda q8hr ordered Labs and intravenous (IV) per unit protocol. Counseled on you bulb, cytotec, Pitocin and induction of labor (IOL). Lactated Ringers (LR) when ready for epidural: Bolus 800 mL, then at 125 mL/hr. Anticipate normal spontaneous delivery () MD Johann Murillo Katrina D MD Aug 29, 2020 15:34
[2020-08-30] VITALS (7 sets, daily range): BP systolic 110–138; BP diastolic 70–84
--- NOTE | 2020-08-30 02:13 | IPNPDOC ---
Text Note Date of Service The patient was seen on 08/30/20. NOTE Intrapartum Note Pt doing well, breathing through ctx, received a dose of IV stadol/phenergan and coping well. Feels some generalized pressure. After the initial PV dose of cyt otec with you bulb, you bulb came out and we started IV pitocin 4hr after cytotec. She has progressed well on pitocin and ctx pattern has been appropriate. She had SROM, clear/bloody around 10pm. Vitals wnl, afebrile SCE: 8/80/-2, AROM of forebag performed with more bloody fluid noted Cat I-II FHRT, currently minimal variability related to stadol (was moderate prior), +accels, rare variable decels Ctx q2min Plan to continue to titrate pitocin to adequate ctx Will continue to closely observe Plan to recheck in 2hr or earlier as indicated Safe to proceed Kathy Wills MD VS,Consuelo, I+O VS, Consuelo I+O Laboratory Tests 08/29/20 10:20 Vital Signs Date Time Temp Pulse Resp B/P (MAP) Pulse Ox O2 Delivery O2 Flow Rate FiO2 08/30/20 00:40 100 110/75 (87) 08/30/20 00:29 18 Room Air 08/29/20 21:16 98.0 08/29/20 18:23 98 I&O- Last 24 Hours up to 6 AM 08/30/20 06:00 Intake Total 1250 ml Output Total 400 ml Balance 850 ml Kathy Wills MD Aug 30, 2020 02:13
[2020-08-30] MEDS ORDERED: OXYTOCIN DRIP 30 UNITS in IV 1 EA IV SCH (03:07)
[2020-08-30] MEDS ORDERED: LIDOCAINE 1% MDV 20ML VIAL INFIL ONE (03:10)
[2020-08-30] MEDS ORDERED: MEASLES,MUMPS,RUBELLA VACCINE INJ (MMR-II) (90707) SC SCH (03:10)
[2020-08-30] MEDS ORDERED: DIBUCAINE 1% OINTMENT 30GM TOP PRN (03:10)
[2020-08-30] MEDS ORDERED: ACETAMINOPHEN 500 MG TAB PO PRN (03:10)
[2020-08-30] MEDS ORDERED: RHOGAM 300 MCG (1500 IU) INJ (J2790) IM SCH (03:10)
[2020-08-30] MEDS ORDERED: IBUPROFEN 800 MG TAB PO PRN (03:10)
[2020-08-30] MEDS ORDERED: DOCUSATE SODIUM 100MG CAPSULE PO PRN (03:10)
[2020-08-30] MEDS ORDERED: ACETAMINOPHEN TAB 650MG DOSE (2X325MG) PO PRN (03:10)
[2020-08-30] MEDS ORDERED: IBUPROFEN 600MG TAB PO PRN (03:10)
--- NOTE | 2020-08-30 03:15 | DNPDOC ---
[facility] Delivery Note Delivery Note DATE OF DELIVERY: 08/30/20 PREDELIVERY DIAGNOSIS: 38w1d gestation, GHTN POST DELIVERY DIAGNOSIS: Delivered. PROCEDURE: Spontaneous vaginal delivery ENVIRONMENTAL ISSUES INSTRUCTOR: Dr. Kathy Wills MD ANESTHESIA: IV stadol/phenergan, 1% lidocaine for repair ESTIMATED BLOOD LOSS: 350 mL. FINDINGS: 6 pound 9 ounce (2990g) female , Score 7/9 DELIVERY SUMMARY: Jailyn is a 29yo [id number] s/p uncomplicated at 0242 on 08/30/20 after und ergoing IOL for GHTN at 38w1d. She was 1/50/-2 at start of induction, had cervical you bulb and PV cytotec placed. She was initiated on pitocin, experienced SROM, and progressed to C/C/0, at which point she began to push. Notably, there was blood tinged fluid all along and when I AROMed a forebag at 8cm, the fluid was frankly bloody- however, FHRT remained reassuring througout. With excellent maternal effort, infant delivered OA, restituted CINDY. Left anterior shoulder quickly delivered followed by posterior shoulder and corpus. vigorous with spontaneous cry, apgars 7/9, placed on maternal abdomen and nose/mouth suctioned with bulb suction. After 1 min, cord clamped x2 and cut by FOB. With uterine massage and traction on the cord, placenta delivered spontaneously and intact with 3 vessel centrally inserted cord. Pitocin IV given per protocol. Fundus firm at u-2cm. Inspection of perineum and vagina revealed a right labial laceration- after anesthetizing with 1% lidocaine, this was repaired in routine fashion with 3-0 vicryl suture with excellent reapproximation and total hemostasis noted. All counts correct x2. Mom and infant were doing well when I left the room. MD Johann Murillo Katrina D MD Aug 30, 2020 03:15
[2020-08-30] MEDS: PRENATAL VITAMINS CHEWABLE TABLET PO SCH (08:49)
[2020-08-31 06:00] VITALS: BP 109/63
[2020-08-31] MEDS: PRENATAL VITAMINS CHEWABLE TABLET PO SCH (09:00)
[2020-08-31] MEDS ORDERED: IBUP80TA PO (09:57)
[2020-08-31] MEDS ORDERED: DOK1CAP7 PO (09:57)
--- NOTE | 2020-08-31 10:06 | IPNPDOC ---
Progress Note Date of Service: Aug 31, 2020 Day#: 1 Progress Note PPD 1 SUBJECT: Jailyn is a 29yo [id number] s/p uncomplicated at 0242 on 08/30/20 after undergoing IOL for GHTN at 38w1d, doing well day # 1. She has been ambulating, voiding spontaneously without issue and tolerating regular diet. Breast feeding without issue. Reports lochia is like a normal period. No f/c/n/v/CP/SOB. OBJECTIVE: VITAL SIGNS: Within normal limits, afebrile. Alert and oriented times three. Abdomen: Fundus firm at U-2. Soft, NTTP. Extremities: no edema of BLE ASSESSMENT: Jailyn is a 29yo [id number] s/p uncomplicated at 0242 on 08/30/20 after undergoing IOL for GHTN at 38w1d, doing well day # 1. Vitals within normal limits, afebrile, hemodynamically stable with no evidence of infection. PLAN: 1. Discharge to home today. 2. Tylenol and Motrin for pain. 3. Encourage breast feeding and ambulation. 4. This was IVF , no need for contraception 5. Routine PP visit in 6 weeks in clinic. 6. Discussed return precautions at length. 7. vaginal rest 6 weeks, no heavy lifting Kathy Wills MD VS, I&O, 24H, Fishbone Vital Signs/I&O Vital Signs Date Time Temp Pulse Resp B/P (MAP) Pulse Ox O2 Delivery O2 Flow Rate FiO2 08/31/20 06:00 97.8 79 17 109/63 (78) 98 Room Air Kathy Wills MD Aug 31, 2020 10:06
--- NOTE | 2020-08-31 10:10 | DS.PDOC ---
Discharge Summary General Date of Admission Aug 29, 2020 at 09:02 Date of Discharge August 31, 2020 Discharge Summary PROCEDURES PERFORMED DURING STAY: spontaneous vaginal delivery ADMITTING DIAGNOSES: 1. IOL for GHTN at term DISCHARGE DIAGNOSES: 1. IOL for GHTN at term COMPLICATIONS/CHIEF COMPLAINT: Induction HISTORY OF PRESENT ILLNESS/HOSPITAL COURSE: Jailyn is a 29yo [id number] s/p uncomplicated at 0242 on 08/30/20 after undergoing IOL for GHTN at 38w1d, doing well day # 1. She has had a benign course. At time of discharge, vitals within normal limits, afebrile, hemodynamically stable with no evidence of infection. DISCHARGE MEDICATIONS: Please see below. ALLERGIES: Please see below. PHYSICAL EXAMINATION ON DISCHARGE: VITAL SIGNS: Within normal limits, afebrile. Alert and oriented times three. Abdomen: Fundus firm at U-2. Soft, NTTP. Extremities: no edema of BLE LABORATORY DATA: Please see below. ACTIVITY: As tolerated DIET: regular DISCHARGE PLAN/INSTRUCTIONS: 1. Discharge to home today. 2. Tylenol and Motrin for pain. 3. Encourage breast feeding and ambulation. 4. This was IVF , no need for contraception 5. Routine PP visit in 6 weeks in clinic. 6. Discussed return precautions at length. 7. vaginal rest 6 weeks, no heavy lifting DISCHARGE CONDITION: Stable TIME SPENT ON DISCHARGE: Greater than 20 minutes. Kathy Wills MD Vital Signs/I&Os Vital Signs Date Time Temp Pulse Resp B/P (MAP) Pulse Ox O2 Delivery O2 Flow Rate FiO2 08/31/20 06:00 97.8 79 17 109/63 (78) 98 Room Air Discharge Medications Scheduled [] , 1 TAB PO DAILY, (Reported) Scheduled PRN Docusate Sodium (Dok) 100 Mg Capsule, 100 MG PO QHSP PRN for CONSTIPATION Fluticasone Propionate (Flonase Allergy Relief) 9.9 Ml [place].susp, 1 SPRAY NARES QHSP PRN for CONGESTION, (Reported) Ibuprofen (Ibuprofen) 800 Mg Tablet, 800 MG PO Q8HP PRN for PAIN LEVEL 6-10 Metronidazole (Metronidazole 0.75% Gel) 45 Gm Gel..gram., 1 APLCT TOP BIDP PRN for RASH/ITCHING, (Reported) Omeprazole (Omeprazole) 40 Mg Capsule.dr, 20 MG PO DAILYPRN PRN for INDIGESTION, (Reported) Allergies Coded Allergies: amoxicillin (Verified Allergy, Intermediate, HIVES, NAUSEA, 02/27/19) Kathy Wills MD Aug 31, 2020 10:10
== END 2020-08-31 10:45 | disposition home or self-care (01) | DRG 560 ==
LOC: M LDI 09:02 → M OBS 08-30 05:06
PROVIDERS: ADMIT Obstetrics & Gynecology; ATTEND Obstetrics & Gynecology
PROC: 3E0P7GC Introduction of Other Therapeutic Substance into Female Reproductive, Via Natural or Artificial Opening (ICD-10-PCS; 2020-08-29)
PROC: 10E0XZZ Delivery of Products of Conception, External Approach (ICD-10-PCS; principal; 2020-08-30)
PROC: 0HQ9XZZ Repair Perineum Skin, External Approach (ICD-10-PCS; 2020-08-30)
DX: O13.4 Gestational [pregnancy-induced] hypertension without significant proteinuria, complicating childbirth (principal); O99.824 Streptococcus B carrier state complicating childbirth; Z3A.38 38 weeks gestation of pregnancy; O70.0 First degree perineal laceration during delivery; Z37.0 Single live birth

== ENCOUNTER → 2021-02-08 | Outpatient (CLI) | payer OTHER ==
[~2021-02-08] MED LIST changes: +DOK1CAP4 PO; +FLON1SPR NARES; +IBUP80TA PO; +METR0.7533 TOP; +OMEP40CA4 PO
[2021-02-08 15:39] LABS: BASO # 0.1 10^3/uL (0.0-0.2); BASO % 0.7 % (0.0-1.0); EOS # 0.1 10^3/uL (0.0-0.5); EOS % 1.2 % (0.0-3.0); HEMATOCRIT 43.9 % (36.0-47.0); HEMOGLOBIN 14.3 g/dl (12.0-15.5); LYMPH # 3.6 10^3/uL (1.5-5.0); LYMPH % 36.1 % (24.0-44.0); MEAN CORPUSCULAR HEMOGLOBIN 29.2 pg (27.0-33.0); MEAN CORPUSCULAR HGB CONC 32.6 g/dl (32.0-36.5); MEAN CORPUSCULAR VOLUME 89.8 fl (80.0-96.0); MONO # 0.8 10^3/uL (0.0-0.8); MONO % 8.2 % (2.0-8.0); NEUTROPHILS # 5.2 10^3/uL (1.5-8.5); NEUTROPHILS % 53.3 % (36.0-66.0); PLATELET COUNT, AUTOMATED 288 10^3/uL (150-450); RED BLOOD COUNT 4.89 10^6/uL (4.00-5.40); WHITE BLOOD COUNT 9.8 10^3/uL (4.0-10.0)
[2021-02-08 16:06] LABS: ALT/SGPT 25 U/L (12-78); BILIRUBIN,DIRECT 0.1 MG/DL (0.0-0.2); BILIRUBIN,TOTAL 0.3 MG/DL (0.2-1.0); BLOOD UREA NITROGEN 14 MG/DL (7-18); CREATININE FOR GFR 0.81 MG/DL (0.55-1.30); GLOMERULAR FILTRATION RATE > 60.0 (>60); TOTAL PROTEIN 7.4 GM/DL (6.4-8.2)
[2021-02-11 06:13] LABS: IGASUB2 77.4 mg/dL (73.2-301.2); IGASUB3 15.2 mg/dL (13.4-97.9); IgA SERUM (part of Subclasses) 81 mg/dL (87-352); TISSUE TRANSGLUTAMINASE IgA <2 U/mL (0-3)
== END ==
LOC: M PLALAB 13:20
PROVIDERS: ATTEND Internal Medicine Gastroenterology
DX: R10.30 Lower abdominal pain, unspecified (principal)

== ENCOUNTER → 2021-02-09 | Outpatient (REF) | payer OTHER | LOC: M LAB REF 11:38 | PROVIDERS: ATTEND Internal Medicine Gastroenterology | DX: R10.30 Lower abdominal pain, unspecified (principal) ==

== ENCOUNTER → 2021-03-24 | Outpatient (REF) | payer OTHER | LOC: M LAB REF 21:30 | PROVIDERS: ATTEND Physician Assistant | DX: R05 Cough (principal); J06.9 Acute upper respiratory infection, unspecified ==

== ENCOUNTER → 2021-04-06 | Outpatient (CLI) | payer OTHER ==
--- NOTE | 2021-04-06 09:32 | REP ---
INDICATION: MRCP. Obstruction of bile duct. Calculus of gallbladder and bile duct. Rule out strictures or stones in bile duct. COMPARISON: Comparison MRI imaging from March 19, 2019. TECHNIQUE: Axial and coronal T2 weighted scans are acquired. A T2 weighted 3D MRCP acquisition is acquired and maximum intensity projection images are generated in addition to source images. FINDINGS: The gallbladder is surgically absent. No focal hepatic lesion is seen. The spleen is unremarkable. No adrenal or pancreatic abnormality is visible. The intrahepatic bile ducts are not dilated. The common bile duct is normal in caliber. There is no filling defect in the common bile duct today to suggest choledocholithiasis. The pancreatic duct is normal in caliber. CBD measures 5.6 mm in greatest diameter. IMPRESSION: Unremarkable MRCP post cholecystectomy. <Electronically signed by Hank Mehta > 04/06/21 0960
== END ==
LOC: M RAD 07:30
PROVIDERS: ATTEND Internal Medicine Gastroenterology
DX: K80.62 Calculus of gallbladder and bile duct with acute cholecystitis without obstruction (principal); K83.1 Obstruction of bile duct

== ENCOUNTER → 2021-06-16 | Outpatient (CLI) | payer OTHER | LOC: M LABSMTC 09:41 | PROVIDERS: ATTEND Anesthesiology | DX: Z01.818 Encounter for other preprocedural examination (principal); Z11.52 Encounter for screening for COVID-19 ==

== ENCOUNTER → 2021-07-15 | Outpatient (CLI) | payer OTHER | LOC: M LABSMTC 10:06 | PROVIDERS: ATTEND Pediatrics | DX: Z11.52 Encounter for screening for COVID-19 (principal) ==

== ENCOUNTER → 2021-11-15 | Outpatient (CLI) | payer OTHER ==
[~2021-11-15] MED LIST changes: +CLAR1TAB13 PO; +SERT50TA29 PO; +TOPI50TA9 PO
== END ==
LOC: M LABSMTC 11:21
PROVIDERS: ATTEND Anesthesiology
DX: Z20.822 Contact with and (suspected) exposure to COVID-19 (principal)

== ENCOUNTER 2021-11-19 08:59 | Day surgery (SDC) | payer OTHER ==
[~2021-11-19] VITALS: Ht 165.1 cm; Wt 97.1 kg
[~2021-11-19 08:59] MED LIST changes: +LIDOCAINE 2% 100MG/5ML SDV (FOR ANES.) As Ordered ONE; +NS 1,000 ML IV ONE; +propofoL 200 MG/20 ML VIAL As Ordered ONE
[2021-11-19] MEDS ORDERED: propofoL 200 MG/20 ML VIAL As Ordered ONE (10:19)
[2021-11-19 10:45] VITALS: BP 105/64
== END 2021-11-19 10:53 | disposition home or self-care (01) ==
LOC: M OPP 08:59
PROVIDERS: ATTEND Internal Medicine Gastroenterology
DX: K52.9 Noninfective gastroenteritis and colitis, unspecified (principal); K57.30 Diverticulosis of large intestine without perforation or abscess without bleeding; K64.8 Other hemorrhoids; R12 Heartburn; Z79.899 Other long term (current) drug therapy; Z88.0 Allergy status to penicillin

== ENCOUNTER → 2022-01-10 | Outpatient (CLI) | payer OTHER ==
[~2022-01-10] MED LIST changes: -LIDOCAINE 2% 100MG/5ML SDV (FOR ANES.) As Ordered ONE; -NS 1,000 ML IV ONE; -propofoL 200 MG/20 ML VIAL As Ordered ONE
== END ==
LOC: M RAD 16:54
PROVIDERS: ATTEND Physician Assistant Medical
DX: J32.9 Chronic sinusitis, unspecified (principal)

== ENCOUNTER → 2022-03-08 | Outpatient (CLI) | payer OTHER | LOC: M WHC 07:53 | PROVIDERS: ATTEND Nurse Practitioner Family | DX: R10.2 Pelvic and perineal pain (principal) ==

== ENCOUNTER → 2022-05-02 | Outpatient (REF) | payer OTHER | LOC: M WUC 16:26 | PROVIDERS: ATTEND Physician Assistant | DX: J02.9 Acute pharyngitis, unspecified (principal) ==

== ENCOUNTER → 2022-06-08 | Outpatient (CLI) | payer OTHER ==
[~2022-06-08] MED LIST changes: +METR0.7526 TOP; -METR0.7533 TOP
== END ==
LOC: M RAD 13:40
PROVIDERS: ATTEND Physician Assistant
DX: M54.2 Cervicalgia (principal)

== ENCOUNTER → 2022-12-14 | Outpatient (CLI) | payer OTHER ==
[~2022-12-14] MED LIST changes: +TOPI-254 PO; -TOPI50TA9 PO
== END ==
LOC: M WHC 08:19
PROVIDERS: ATTEND Nurse Practitioner Family
DX: R10.2 Pelvic and perineal pain (principal)

== ENCOUNTER → 2023-01-25 | Outpatient (REF) | payer OTHER | LOC: M SFHCWAGY 10:01 | PROVIDERS: ATTEND Nurse Practitioner Family | DX: Z12.4 Encounter for screening for malignant neoplasm of cervix (principal) ==

== ENCOUNTER → 2023-02-10 | Outpatient (REF) | payer OTHER | LOC: M SFHCWAGY 16:57 | PROVIDERS: ATTEND Nurse Practitioner Family | DX: Z12.4 Encounter for screening for malignant neoplasm of cervix (principal); R87.610 Atypical squamous cells of undetermined significance on cytologic smear of cervix (ASC-US); R87.615 Unsatisfactory cytologic smear of cervix ==

== ENCOUNTER → 2023-08-04 | Outpatient (REF) | payer OTHER ==
[~2023-08-04] MED LIST changes: +TOPI-21 PO; -TOPI-254 PO
== END ==
LOC: M SFHCWAGY 15:31
PROVIDERS: ATTEND Nurse Practitioner Family
DX: Z12.4 Encounter for screening for malignant neoplasm of cervix (principal)

== ENCOUNTER → 2023-08-25 | Outpatient (CLI) | payer OTHER ==
[2023-08-25 17:20] LABS: BASO # 0.1 10^3/uL (0.0-0.2); BASO % 0.9 % (0.0-1.0); EOS # 0.1 10^3/uL (0.0-0.5); EOS % 0.9 % (0.0-3.0); HEMATOCRIT 42.4 % (36.0-47.0); HEMOGLOBIN 14.1 g/dl (12.0-15.5); LYMPH # 3.4 10^3/uL (1.5-5.0); LYMPH % 44.5 % (24.0-44.0); MEAN CORPUSCULAR HEMOGLOBIN 30.7 pg (27.0-33.0); MEAN CORPUSCULAR HGB CONC 33.3 g/dl (32.0-36.5); MEAN CORPUSCULAR VOLUME 92.4 fl (80.0-96.0); MONO # 0.7 10^3/uL (0.0-0.8); MONO % 8.6 % (2.0-8.0); NEUTROPHILS # 3.5 10^3/uL (1.5-8.5); PLATELET COUNT, AUTOMATED 259 10^3/uL (150-450); RED BLOOD COUNT 4.59 10^6/uL (4.00-5.40); WHITE BLOOD COUNT 7.7 10^3/uL (4.0-10.0)
[2023-08-25 17:25] LABS: ERYTHROCYTE SEDIMENTATION RATE 8 mm/hr (0-20)
[2023-08-25 17:47] LABS: ALBUMIN 4.1 G/DL (3.2-5.2); ALKALINE PHOSPHATASE 79 U/L (46-116); ALT/SGPT 15 U/L (7.0-40); AST/SGOT 13 U/L (<34); BILIRUBIN,TOTAL 0.3 MG/DL (0.3-1.2); BLOOD UREA NITROGEN 17 MG/DL (9-23); CARBON DIOXIDE LEVEL 25 MMOL/L (20-31); CHLORIDE LEVEL 108 MMOL/L (98-107); CREATININE FOR GFR 0.88 MG/DL (0.55-1.30); GLOMERULAR FILTRATION RATE > 60.0 (>60); GLUCOSE, FASTING 83 MG/DL (60-100); POTASSIUM SERUM 3.9 MMOL/L (3.5-5.1); RHEUMATOID FACTOR QUANT < 3.5 IU/ML (<14); SODIUM LEVEL 141 MMOL/L (136-145); THYROID STIMULATING HORMONE 1.572 uIU/ML (0.55-4.78); TOTAL 25(OH) VITAMIN D 23.6 NG/ML (20.0-100.0); TOTAL PROTEIN 6.9 G/DL (5.7-8.2)
[2023-08-28 16:11] LABS: ANTINUCLEAR ANTIBODIES DIRECT Negative (Negative)
== END ==
LOC: M PLALAB 13:34
PROVIDERS: ATTEND Psychiatry & Neurology Neurology
DX: R51.9 Headache, unspecified (principal)

== ENCOUNTER → 2023-08-31 | Outpatient (REF) | payer OTHER | LOC: M PLALAB 16:00 | PROVIDERS: ATTEND Advanced Practice Midwife | DX: R87.613 High grade squamous intraepithelial lesion on cytologic smear of cervix (HGSIL) (principal) ==

== ENCOUNTER → 2023-09-15 | Outpatient (REF) | payer OTHER | LOC: M SFHCWAGY 10:14 | PROVIDERS: ATTEND Specialist | DX: R87.613 High grade squamous intraepithelial lesion on cytologic smear of cervix (HGSIL) (principal) ==

== ENCOUNTER → 2023-10-21 | Outpatient (CLI) | payer OTHER ==
[2023-10-21 11:01] LABS: HEMATOCRIT 43.6 % (36.0-47.0); HEMOGLOBIN 14.3 g/dl (12.0-15.5); MEAN CORPUSCULAR HEMOGLOBIN 30.6 pg (27.0-33.0); MEAN CORPUSCULAR HGB CONC 32.8 g/dl (32.0-36.5); MEAN CORPUSCULAR VOLUME 93.4 fl (80.0-96.0); PLATELET COUNT, AUTOMATED 250 10^3/uL (150-450); RED BLOOD COUNT 4.67 10^6/uL (4.00-5.40); WHITE BLOOD COUNT 9.9 10^3/uL (4.0-10.0)
[2023-10-21 11:33] LABS: ALBUMIN 3.7 G/DL (3.2-5.2); ALKALINE PHOSPHATASE 85 U/L (46-116); ALT/SGPT 21 U/L (7.0-40); AST/SGOT 16 U/L (<34); BILIRUBIN,TOTAL 0.3 MG/DL (0.3-1.2); BLOOD UREA NITROGEN 12 MG/DL (9-23); CALCIUM LEVEL 9.1 MG/DL (8.5-10.1); CARBON DIOXIDE LEVEL 26 MMOL/L (20-31); CHLORIDE LEVEL 107 MMOL/L (98-107); CHOLESTEROL LEVEL 186 MG/DL (<200); CHOLESTEROL RISK RATIO 3.98 (<5); CREATININE FOR GFR 0.75 MG/DL (0.55-1.30); GLOMERULAR FILTRATION RATE > 60.0 (>60); GLUCOSE, FASTING 83 MG/DL (60-100); HDL CHOLESTEROL 46.7 MG/DL (>40); LDL CHOLESTEROL 107.5 MG/DL (<100); NON-HDL-C 139.3 MG/DL; POTASSIUM SERUM 3.9 MMOL/L (3.5-5.1); SODIUM LEVEL 140 MMOL/L (136-145); TOTAL PROTEIN 6.9 G/DL (5.7-8.2); TRIGLYCERIDES LEVEL 159 MG/DL (<150)
[2023-10-21 11:35] LABS: FREE T4 0.97 NG/DL (0.89-1.76); THYROID STIMULATING HORMONE 1.536 uIU/ML (0.55-4.78)
== END ==
LOC: M LAB 10:23
PROVIDERS: ATTEND Physician Assistant
DX: Z00.01 Encounter for general adult medical examination with abnormal findings (principal); E66.9 Obesity, unspecified

== ENCOUNTER → 2024-01-26 | Outpatient (CLI) | payer OTHER ==
[~2024-01-26] MED LIST changes: +ONDA-282 PO; -ONDA4TAB6 PO
[2024-01-26 15:34] LABS: HEMATOCRIT 44.6 % (36.0-47.0); HEMOGLOBIN 14.7 g/dl (12.0-15.5); MEAN CORPUSCULAR HEMOGLOBIN 30.3 pg (27.0-33.0); PLATELET COUNT, AUTOMATED 302 10^3/uL (150-450); RED BLOOD COUNT 4.85 10^6/uL (4.00-5.40); WHITE BLOOD COUNT 9.5 10^3/uL (4.0-10.0)
[2024-01-26 15:45] LABS: ERYTHROCYTE SEDIMENTATION RATE 12 mm/hr (0-20)
[2024-01-26 15:51] LABS: C REACTIVE PROTEIN QUANTITATIV < 0.40 MG/DL (<1.0)
[2024-01-26 15:55] LABS: RHEUMATOID FACTOR QUANT < 3.5 IU/ML (<14); VITAMIN B12 LEVEL 651 PG/ML (211-911)
[2024-01-29 15:17] LABS: ANA SCREEN, IFA NEGATIVE (NEGATIVE)
== END ==
LOC: M PLALAB 12:38
PROVIDERS: ATTEND Physician Assistant
DX: L30.9 Dermatitis, unspecified (principal)

== ENCOUNTER → 2024-04-16 | Outpatient (REF) | payer OTHER | LOC: M SFHCWAGY 08:24 | PROVIDERS: ATTEND Nurse Practitioner Family | DX: Z12.4 Encounter for screening for malignant neoplasm of cervix (principal); Z01.419 Encounter for gynecological examination (general) (routine) without abnormal findings; Z77.9 Other contact with and (suspected) exposures hazardous to health ==

== ENCOUNTER 2024-07-15 07:56 | Day surgery (SDC) | payer OTHER ==
[~2024-07-15] VITALS: Ht 165.1 cm; Wt 86.4 kg
[~2024-07-15 07:56] MED LIST changes: +LIDOCAINE 2% 100MG/5ML SDV (FOR ANES.) As Ordered ONE; +MIDAZOLAM INJ 2MG/2ML VIAL As Ordered ONE; +PHEN-239 PO; +ROCURONIUM BROMIDE 50MG/5ML VIAL As Ordered ONE; +TIZA10TA PO; +TOPI200T7 PO; +fentaNYL 100 MCG/2 ML INJECTION As Ordered ONE; +propofoL 200 MG/20 ML VIAL As Ordered ONE
[2024-07-15] MEDS ORDERED: LR 1,000 ML IV SCH (08:30)
[2024-07-15 08:36] LABS: HEMATOCRIT 42.9 % (36.0-47.0); HEMOGLOBIN 14.1 g/dl (12.0-15.5); MEAN CORPUSCULAR HEMOGLOBIN 30.1 pg (27.0-33.0); MEAN CORPUSCULAR HGB CONC 32.9 g/dl (32.0-36.5); MEAN CORPUSCULAR VOLUME 91.5 fl (80.0-96.0); PLATELET COUNT, AUTOMATED 329 10^3/uL (150-450); RED BLOOD COUNT 4.69 10^6/uL (4.00-5.40); WHITE BLOOD COUNT 11.9 10^3/uL (4.0-10.0)
[2024-07-15] MEDS ORDERED: GLYCOPYRROLATE INJ 0.2 MG/ML 2 ML VIAL As Ordered ONE (09:09)
[2024-07-15] MEDS ORDERED: ACETAMINOPHEN 1000MG/100ML IV BAG As Ordered ONE (09:48)
[2024-07-15] MEDS ORDERED: KETOROLAC 60MG 2ML VIAL As Ordered ONE (09:48)
[2024-07-15] MEDS ORDERED: SUGAMMADEX SODIUM 500 MG/5 ML VIAL (BRIDION) As Ordered ONE (09:48)
[2024-07-15] MEDS ORDERED: ONDANSETRON 4MG 2ML VIAL As Ordered ONE (09:48)
[2024-07-15] MEDS ORDERED: HYDROmorphone HCL 2MG/ML 1ML VIAL As Ordered ONE (09:52)
[2024-07-15] MEDS ORDERED: fentaNYL 100 MCG/2 ML INJECTION IV PRN (10:25)
[2024-07-15] MEDS ORDERED: ONDANSETRON 4MG 2ML VIAL IV PRN (10:25)
[2024-07-15] MEDS ORDERED: oxyCODONE 5MG TAB PO PRN (10:25)
[2024-07-15] MEDS ORDERED: IBUP-1022 PO (10:40)
[2024-07-15] MEDS ORDERED: OXYC1TAB23 PO (10:41)
[2024-07-15 11:20] VITALS: BP 102/65; TEMP 97.8; O2SAT 98
== END 2024-07-15 12:03 | disposition home or self-care (01) ==
LOC: M SDC 07:56
PROVIDERS: ATTEND Specialist
DX: N80.329 Endometriosis of the posterior cul-de-sac, unspecified depth (principal); N80.102 Endometriosis of left ovary, unspecified depth; R10.2 Pelvic and perineal pain; G43.909 Migraine, unspecified, not intractable, without status migrainosus; Z79.899 Other long term (current) drug therapy; Z90.89 Acquired absence of other organs; Z88.1 Allergy status to other antibiotic agents
CPT/HCPCS: 36415; 58662; 81025; 85027; J0131; J0665; J1100; J1171; J1885; J2250; J2405; J3010

== ENCOUNTER → 2024-07-16 | Outpatient (CLI) | payer OTHER ==
[~2024-07-16] MED LIST changes: +IBUP-1022 PO; -LIDOCAINE 2% 100MG/5ML SDV (FOR ANES.) As Ordered ONE; -MIDAZOLAM INJ 2MG/2ML VIAL As Ordered ONE; +OXYC1TAB23 PO; -ROCURONIUM BROMIDE 50MG/5ML VIAL As Ordered ONE; -fentaNYL 100 MCG/2 ML INJECTION As Ordered ONE; -propofoL 200 MG/20 ML VIAL As Ordered ONE
[2024-07-16 18:32] LABS: HIV 1&2 SCREEN NEGATIVE (NEGATIVE)
[2024-07-16 18:40] LABS: HEPATITIS C VIRUS ABY INDEX < 0.02 INDEX (<0.8)
[2024-07-16 20:20] LABS: GC DNA AMPLIFICATION NEGATIVE (NEGATIVE)
== END ==
LOC: M PLALAB 15:11
PROVIDERS: ATTEND Specialist
DX: Z11.3 Encounter for screening for infections with a predominantly sexual mode of transmission (principal)

== ENCOUNTER 2024-07-31 17:22 | Emergency (ER) | payer OTHER ==
[~2024-07-31] VITALS: Ht 165.1 cm; Wt 88.9 kg
[2024-07-31] MEDS: CEPACOL LOZENGE MT ONE (19:55)
[2024-07-31] MEDS: NS (Normal Saline) 0.9% 1,000 ML IV ONE (20:08)
[2024-07-31] MEDS: KETOROLAC 30 MG/ML 1ML VIAL IV ONE (20:11)
[2024-07-31] MEDS: METOCLOPRAMIDE INJ 10MG/2ML VIAL IV ONE (20:14)
[2024-07-31 20:38] LABS: MONO REFLEX EBV COMP NEGATIVE (NEGATIVE)
[2024-07-31] MEDS ORDERED: BENZ1LOZ9 PO (21:29)
[2024-07-31 21:38] VITALS: BP 108/58; TEMP 98.2; O2SAT 97
[2024-08-05 14:17] LABS: EBV AB TO NUCLEAR ANTIGEN < 18.00 U/mL (<18.00); EBV VIRAL CAPSID AG IGM < 36.00 U/mL (<36.00)
== END 2024-07-31 21:40 | disposition home or self-care (01) ==
LOC: M ED 17:22
DX: J02.9 Acute pharyngitis, unspecified (principal); R51.9 Headache, unspecified; Z88.1 Allergy status to other antibiotic agents; Z79.1 Long term (current) use of non-steroidal anti-inflammatories (NSAID); Z79.899 Other long term (current) drug therapy
CPT/HCPCS: 36415; 86308; 86664; 86665; 87486; 87581; 87633; 87798; 87880; 96374; 96375; 99284; J1100; J1885; J2765

== ENCOUNTER → 2024-11-12 | Outpatient (REF) | payer OTHER ==
[~2024-11-12] MED LIST changes: +BENZ1LOZ9 PO; -PHEN-239 PO; +PHEN37.511 PO; +TOPI-14 PO; -TOPI200T7 PO
== END ==
LOC: M SFHCWAGY 17:25
PROVIDERS: ATTEND Specialist
DX: Z12.4 Encounter for screening for malignant neoplasm of cervix (principal)

== ENCOUNTER → 2025-01-14 | Outpatient (CLI) | payer OTHER ==
[2025-01-14 18:20] LABS: APPEARANCE, URINE CLEAR (CLEAR); BACTERIA, URINE AUTO 1+ (NEGATIVE); BILIRUBIN, URINE AUTO NEGATIVE (NEGATIVE); BLOOD, URINE BLOOD NEGATIVE (NEGATIVE); GLUCOSE, URINE (UA) AUTO NEGATIVE (NEGATIVE); KETONE, URINE AUTO NEGATIVE (NEGATIVE); LEUKOCYTE ESTERASE, URINE AUTO NEGATIVE (NEGATIVE); NITRITE, URINE AUTO NEGATIVE (NEGATIVE); PLATELET COUNT, AUTOMATED 267 10^3/uL (150-450); PROTEIN, URINE AUTO NEGATIVE (NEGATIVE); RBC, URINE AUTO 0 /HPF (0-3); SPECIFIC GRAVITY URINE AUTO 1.013 (1.002-1.035); SQUAMOUS EPITHELIAL CELL UR AU 2 /HPF (0-6); TRANSITIONAL EPITHELIAL AUTO <1 /HPF; UROBILINOGEN, URINE AUTO 0.2 mg/dL (0.0-2.0); WBC, URINE AUTO 0 /HPF (0-3)
[2025-01-14 18:32] LABS: ERYTHROCYTE SEDIMENTATION RATE 8 mm/hr (0-20)
[2025-01-14 18:37] LABS: C REACTIVE PROTEIN QUANTITATIV < 0.50 MG/DL (<1.0); RHEUMATOID FACTOR QUANT < 3.5 IU/ML (<14)
[2025-01-14 18:38] LABS: ALT/SGPT 19 U/L (7.0-40); AST/SGOT 21 U/L (<34); CALCIUM LEVEL 9.5 MG/DL (8.5-10.1); CARBON DIOXIDE LEVEL 26 MMOL/L (20-31); CHLORIDE LEVEL 106 MMOL/L (98-107); CHOLESTEROL LEVEL 173 MG/DL (<200); CHOLESTEROL RISK RATIO 3.48 (<5); CREATININE FOR GFR 1.06 MG/DL (0.55-1.30); GLOMERULAR FILTRATION RATE 70.3 (>60); LDL CHOLESTEROL 95.6 MG/DL (<100); NON-HDL-C 123.4 MG/DL; POTASSIUM SERUM 4.1 MMOL/L (3.5-5.1); SODIUM LEVEL 143 MMOL/L (136-145); TRIGLYCERIDES LEVEL 139 MG/DL (<150)
[2025-01-14 18:41] LABS: FREE T4 1.27 NG/DL (0.89-1.76)
[2025-01-14 18:43] LABS: VITAMIN B12 LEVEL 802 PG/ML (211-911)
[2025-01-14 19:08] LABS: ESTIMATED AVERAGE GLUCOSE 97.0 MG/DL (60-110)
[2025-01-14 19:13] LABS: HIV 1&2 SCREEN NEGATIVE (NEGATIVE)
[2025-01-14 19:21] LABS: HEPATITIS C VIRUS ABY INDEX < 0.02 INDEX (<0.8)
== END ==
LOC: M PLALAB 15:42
PROVIDERS: ATTEND Physician Assistant
DX: E66.9 Obesity, unspecified (principal)

== ENCOUNTER → 2025-05-12 | Outpatient (CLI) | payer OTHER ==
[~2025-05-12] MED LIST changes: -IBUP-1022 PO; +IBUP600T42 PO
[2025-05-12 19:18] LABS: IRON (FE) 85.0 UG/DL (50-170)
[2025-05-12 19:20] LABS: PERCENT SATURATION 31.1 % (13.2-45.0)
[2025-05-14 12:47] LABS: SSA SJOGRENS A <1.0 NEG AI (<1.0 NEG); SSB SJOGRENS B <1.0 NEG AI (<1.0 NEG)
== END ==
LOC: M PLALAB 15:53
PROVIDERS: ATTEND Physician Assistant
DX: L28.1 Prurigo nodularis (principal)

== ENCOUNTER → 2025-06-12 | Outpatient (REF) | payer OTHER ==
[2025-06-14 14:18] LABS: HPV APTIMA Not Detected (Not Detected)
== END ==
LOC: M SFHCWAGY 16:57
PROVIDERS: ATTEND Specialist
DX: Z12.4 Encounter for screening for malignant neoplasm of cervix (principal)

== ENCOUNTER → 2025-06-24 | Outpatient (CLI) | payer OTHER ==
[2025-06-24 17:44] LABS: MAGNESIUM LEVEL 2.0 MG/DL (1.8-2.4)
[2025-06-24 17:52] LABS: VITAMIN B12 LEVEL 623.0 PG/ML (211-911)
[2025-06-27 14:31] LABS: IgE PENICILLIUM NOTATUM < 0.10 kU/L (<0.10); STEMP BOTRYOSUM IGE < 0.10 kU/L (<0.10)
[2025-06-28 13:33] LABS: VITAMIN B6,PYRIDOXAL PHOSPHATE 9.7 ng/mL (2.1-21.7)
[2025-06-30 15:22] LABS: VITAMIN B1 LEVEL WHOLE BLOOD 125 nmol/L (78-185)
[2025-07-01 06:38] LABS: LYME TOTAL ANTIBODY CIA <= 0.90 Index (<=0.90)
== END ==
LOC: M LAB 15:38
PROVIDERS: ATTEND Physician Assistant
DX: K14.6 Glossodynia (principal); M54.2 Cervicalgia; G43.009 Migraine without aura, not intractable, without status migrainosus